=== PATIENT | male | born 1945 | race Caucasian/White ===

== ENCOUNTER 2021-06-07 14:33 | Inpatient (IN) | payer MEDICARE, OTHER ==
[~2021-06-07] VITALS: Ht 175 cm; Wt 101.0 kg
[2021-06-07] MEDS ORDERED: ALPRAZolam 0.25 MG (XANAX) TAB PO PRN (16:30)
[2021-06-07] MEDS ORDERED: CALCIUM CARBONATE 500 MG (TUMS) TAB.CHEW PO PRN (16:30)
[2021-06-07] MEDS ORDERED: MELATONIN 3 MG TABLET PO PRN (16:30)
[2021-06-07] MEDS ORDERED: polyethylene glycoL POWDER 17 GM (MIRALAX) PACK PO PRN (16:30)
[2021-06-07] MEDS ORDERED: diphenhydrAMINE 50 MG/ML INJ (BENADRYL) IVP PRN (16:30)
[2021-06-07] MEDS ORDERED: FUROSEMIDE 40 MG/4 ML INJ (LASIX) IVP ONE (16:30)
[2021-06-07] MEDS ORDERED: MILK OF MAGNESIA 400 MG/5 ML 30 ML UDC PO PRN (16:30)
[2021-06-07] MEDS ORDERED: ANTACID SUSP 30 ML UDC (MYLANTA) PO PRN (16:30)
[2021-06-07] MEDS ORDERED: PATIENT MAY USE OWN MEDS, ALL PO SCH (16:30)
[2021-06-07] MEDS ORDERED: ACETAMINOPHEN 325 MG TABLET PO PRN (16:30)
[2021-06-07] MEDS ORDERED: BISACODYL 10 MG SUPP (DULCOLAX) PR PRN (16:30)
[2021-06-07] MEDS ORDERED: diphenhydrAMINE 25 MG TAB (BENADRYL) PO PRN (16:30)
[2021-06-07] MEDS ORDERED: ONDANSETRON 4 MG/2 ML (SDV) Z0FRAN IV PRN (16:30)
[2021-06-07] MEDS ORDERED: LACTULOSE SYRUP 10GM/15ML (ENULOSE) 30ML UDC PO PRN (16:30)
[2021-06-07] MEDS ORDERED: morphine INJ 4 MG/ML 1 ML (VIAL/SYRINGE) IV PRN (16:30)
[2021-06-07] MEDS ORDERED: ONDANSETRON 4 MG (ZOFRAN) ORAL DISSOLVE TAB PO PRN (16:30)
[2021-06-07 16:53] LABS: BASOPHILS % (AUTO) 0 % (0-10); EOSINOPHILS % (AUTO) 0 % (0-10); HEMATOCRIT 22 % (40-54); LYMPHOCYTES # (AUTO) 1.3 10^3/uL (1.0-4.0); LYMPHOCYTES % (AUTO) 13 % (12-44); MEAN CORPUSCULAR HEMOGLOBIN 23 pg (25-34); MEAN CORPUSCULAR HGB CONC 28 g/dL (32-36); MEAN CORPUSCULAR VOLUME 81 fL (80-99); MEAN PLATELET VOLUME 8.7 fL (9.0-12.2); MONOCYTES % (AUTO) 10 % (0-12); NEUTROPHILS # (AUTO) 7.6 10^3/uL (1.8-7.8); NEUTROPHILS % (AUTO) 76 % (42-75); PLATELET COUNT 351 10^3/uL (130-400)
--- NOTE | 2021-06-07 16:56 | Consultation-Cardiology ---
HPI-Cardiology Cardiology Consultation: Date of Consultation 06/07/21 Time Seen by a Provider: 16:30 Date of Admission 06-07-21 Attending Physician Cristy Boudreaux DO Admitting Physician Consulting Physician Gabriel Mathias MD HPI: Chief Complaint: SOB Mr. Vazquez is a 76 yr old male admitted to ICU 6 as a [place] [facility] [place] reports increasing SOB, fatigue and LE swelling over the course of the last few days. He reports frequent cough for the last few weeks. He denies any c/o CP, palpitations, syncope or near syncope. 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 Tomas with [facility]. Review of Systems-Cardiology Review of Systems Constitutional: No chills, No fever; malaise Eyes: No vision change Ears/Nose/Throat: No epistaxis, No recent hearing loss Respiratory: As described under HPI Cardiovascular: As described under HPI Gastrointestinal: No constipation, No diarrhea, No nausea, No vomiting Genitourinary: No dysuria Musculoskeletal: joint pain (chronic) Skin: No rash on exposed areas, No ulcerations on exposed areas Psychiatric/Neurological: No anxiety, No depression, No seizure, No focal weakness, No syncope Hematologic: No bleeding abnormalities SVP-Ckovel-Mklhmh Hx Patient Social History Smoking Status: Former Smoker Have you traveled recently?: No Alcohol Use?: No Pt feels they are or have been: No Past Medical History PMH As described under Assessment. Family Medical History Family Medical History: He reports his father had CAD and from an [place] at age 59. Allergies and Home Medications Allergies Coded Allergies: No Known Drug Allergies (Unverified , 07/14/10) Physical Exam-Cardiology Physical Exam Vital Signs/I&O 06/07/21 06/07/21 06/07/21 16:06 16:06 16:31 Temp 36.3 Pulse 63 65 61 Resp 18 B/P (MAP) 127/68 127/68 Pulse Ox 90 91 O2 Delivery Nasal Cannula High Flow N/C O2 Flow Rate 8.00 Capillary Refill : Less Than 3 Seconds Constitutional: AAO x 3, well-developed, well-nourished HEENT: PERRL, hearing is well preserved, oral hygience is good Neck: No carotid bruit; carotid pulses are 2 + bilaterally Respiratory: No accessory muscle use, No respiratory distress; chest expansion is symmetric, chest is bilaterally symmetric, rhonchi (scattered) Cardiovascular: regular rate-rhythm; No JVD; S1 and S2 Gastrointestinal: No tender; round; No guarding; audible bowel sounds Extremities: other (mod bilat LE swelliing) Neurologic/Psychiatric: grossly intact (moves all extremities) Skin: No rash on exposed areas, No ulcerations on exposed areas A/P-Cardiology Assessment/Admission Diagnosis Anemia - undetermined etiology - management per medical services CAD - h/o CABG [address] Green at [facility] in [place], [place] PAF - OAC with Eliquis - currently being held PAD - reports h/o bilat fem-pop (which he reports both have failed) - managed by Dr. Green at [facility] in [place], [place] HTN HLD Discussion and Recomendations Anemia of undetermined etiology - requiring transfusion - suspect GIB - management per medical services Echocardiogram to eval structure and function Request records from [facility] in [place], [place] PAF - currently SR - OAC with Eliquis being held at this time - advise source of bleeding be determined and treated so that OAC may be resumed for stroke prophylaxis Monitor lab closely Replace electrolytes Further recs will be based on his hospital course We would like to thank medical services for this consult Clinical Quality Measures DVT/VTE Risk/Contraindication: Contraindications-Pharm: Other *list below* Other: JALEESA Huerta Jun 07, 2021 16:56
[2021-06-07 17:04] LABS: ALBUMIN 3.6 GM/DL (3.2-4.5); POTASSIUM 3.9 MMOL/L (3.6-5.0)
[2021-06-07 17:05] LABS: CALCIUM 8.8 MG/DL (8.5-10.1)
[2021-06-07 17:06] LABS: TOTAL PROTEIN 7.2 GM/DL (6.4-8.2)
[2021-06-07 17:08] LABS: BILIRUBIN,TOTAL 0.4 MG/DL (0.1-1.0)
[2021-06-07 17:10] LABS: CREATININE SERUM 1.16 MG/DL (0.60-1.30)
--- NOTE | 2021-06-07 17:20 | Consultation - Surgery ---
History of Present Illness History of Present Illness Patient Consulted On(urbano/time) 06/07/21 17:13 Time Seen by Provider: 16:52 History of Present Illness Surgery asked to consult regarding anemia. HPI: Pt is a 76 yr old male admitted to ICU 6 as a direct admit from [facility] [place]. He reports increasing SOB, fatigue and LE swelling over the course of the last few days. He reports frequent cough for the last few weeks. He denies any c/o CP, palpitations, syncope or near syncope. He reports his primary placing judge is Dr. Tomas with [facility]. He states his taste has been off for a "couple of months" and he hasn't really been eating much. He denied any hematochezia, hematemesis or melena; states not even bloody nose. He denied every being told he had anemia prior to this; had EGD/Colonoscopy just over 5 yrs ago. States they found some polyps, denied any inflammation or ulcers in stomach. States he was due for repeat after 5 yrs, "I'm a little late". He denies any abdominal pain or pain anywhere else really. Allergies and Home Medications Allergies Coded Allergies: No Known Drug Allergies (Unverified , 07/14/10) Patient Home Medication List Home Medication List Reviewed: Yes Past Xsopbfw-Vttgth-Guvyip Hx Patient Social History Smoking Status: Former Smoker Alcohol Use?: No Have you traveled recently?: No Surgeries History of Surgeries: Yes Surgeries: Appendectomy, CABG, Orthopedic Respiratory History of Respiratory Disorde: Yes Respiratory Disorders: COPD Cardiovascular History of Cardiac Disorders: Yes Cardiac Disorders: Atrial Fibrillation, Coronary Artery Disease Neurological History of Neurological Disord: No Genitourinary History of Genitourinary Disor: Yes Genitourinary Disorders: Renal Failure Gastrointestinal History of Gastrointestinal Di: No Musculoskeletal History of Musculoskeletal Dis: Yes Musculoskeletal Disorders: Arthritis Endocrine History of Endocrine Disorders: No HEENT History of HEENT Disorders: Yes Hearing Impairment: Hard of Hearing Cancer History of Cancer: No Psychosocial History of Psychiatric Problem: No Integumentary History of Skin or Integumenta: No Blood Transfusions History of Blood Disorders: No Family Medical History Significant Family History: CAD Over 55 Years Old (father had CT at 59 and ) Review of Systems-General Constitutional: malaise, weakness EENTM: No ear discharge, No mouth pain, No epistaxis, No throat swelling Respiratory: cough, dyspnea on exertion; No hemoptysis; short of breath Cardiovascular: No chest pain; Hx of Intervention, palpitations Gastrointestinal: No abdominal pain, No hematemesis, No jaundice; loss of appetite; No melena, No nausea, No vomiting Genitourinary: No dysuria, No hematuria; hesitancy, nocturia Musculoskeletal: joint pain, muscle stiffness, muscle cramps, muscle weakness Skin: No change in color, No change in hair/nails Psychiatric/Neurological: Denies Anxiety, Denies Depressed, Denies Seizure, Denies Tremors Physical Exam-General Problems Physical Exam Vital Signs Vital Signs - First Documented 06/07/21 06/07/21 16:06 16:31 Temp 36.3 Pulse 63 Resp 18 B/P (MAP) 127/68 Pulse Ox 90 O2 Delivery Nasal Cannula O2 Flow Rate 8.00 Capillary Refill : Less Than 3 Seconds General Appearance: no apparent distress, obese Eyes: Bilateral Eye PERRL (+arcus senilis), Bilateral Eye EOMI HEENT: pharynx normal; No scleral icterus (R), No scleral icterus (L) Neck: non-tender, supple Respiratory: lungs clear, normal breath sounds, no respiratory distress, no accessory muscle use Cardiovascular: regular rate, rhythm, no murmur, extra beats Gastrointestinal: non tender, soft, no organomegaly Back: no CVA tenderness, no vertebral tenderness Extremities: no calf tenderness, pedal edema Neurologic/Psychiatric: header setup operator II-XII nml as tested, alert, normal mood/affect, oriented x 3 Skin: normal color, warm/dry Lymphatic: no adenopathy (neck, axilla or groin) Data Review Labs Laboratory Tests 06/07/21 16:40: Sodium Level 134L, Potassium Level 3.9, Chloride Level 98, Carbon Dioxide Level 24, Anion Gap 12, Blood Urea Nitrogen 28H, Creatinine 1.16, Estimat Glomerular Filtration Rate 64, BUN/Creatinine Ratio 24, Glucose Level 102, Calcium Level 8.8, Corrected Calcium 9.1, Total Bilirubin 0.4, Aspartate Amino Transf (AST/SGOT) 31, Alanine Aminotransferase (ALT/SGPT) 31, Alkaline Phosphatase 96, Total Protein 7.2, Albumin 3.6 Assessment/Plan Assessment/Plan Assessment/Plan Anemia CAD HTN Abnormal Coagulopathy I am not sure if his anemia is from a GI bleed, pt has not seen any bleeding and hemoccult (done at [place]) was negative. Pt is also on Coumadin for his perceived stroke risk. INR is 4.6 and will need to come down before we do any procedure. He may benefit from EGD to just make sure there is nothing going on/source of bleeding. Will follow along. Clinical Quality Measures DVT/VTE Risk/Contraindication: Contraindications-Pharm: Other *list below* Other: ANTONINA Choi DO Jun 07, 2021 17:20
--- NOTE | 2021-06-07 17:44 | Consultation-Cardiology ---
HPI-Cardiology Cardiology Consultation: Date of Consultation 06/07/21 Time Seen by a Provider: 17:20 Date of Admission Attending Physician Cristy Boudreaux DO Admitting Physician Consulting Physician CB CONTRERAS MD, MA, FACP, FACC, [facility] [place], CCDS HPI: Chief Complaint: Shortness of breath Mr. Vazquez is a 76 yr old male admitted to ICU 6 as a direct admit from [facility] [place]. He reports increasing SOB, fatigue and LE swelling over the course of the last few days. He reports frequent cough for the last few weeks. He denies any c/o CP, palpitations, syncope or near syncope. 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 Tomas with [facility]. Review of Systems-Cardiology Review of Systems Constitutional: No chills, No fever; malaise Eyes: No vision change Ears/Nose/Throat: No epistaxis, No recent hearing loss Respiratory: As described under HPI Cardiovascular: As described under HPI Gastrointestinal: No constipation, No diarrhea, No nausea, No vomiting Genitourinary: No dysuria Musculoskeletal: joint pain (chronic) Skin: No rash on exposed areas, No ulcerations on exposed areas Psychiatric/Neurological: No anxiety, No depression, No seizure, No focal weakness, No syncope Hematologic: No bleeding abnormalities USW-Xjkyps-Pmpgwj Hx Patient Social History Smoking Status: Former Smoker Have you traveled recently?: No Alcohol Use?: No Pt feels they are or have been: No Past Medical History PMH As described under Assessment. Family Medical History Family Medical History: He reports his father had CAD and from an AL at age 59. Allergies and Home Medications Allergies Coded Allergies: No Known Drug Allergies (Unverified , 07/14/10) Patient Home Medication List Home Medication List Reviewed: Yes Physical Exam-Cardiology Physical Exam Vital Signs/I&O 06/07/21 06/07/21 06/07/21 06/07/21 16:06 16:06 16:31 16:50 Temp 36.3 Pulse 63 65 61 Resp 18 B/P (MAP) 127/68 127/68 Pulse Ox 90 91 O2 Delivery Nasal Cannula High Flow N/C High Flow N/C O2 Flow Rate 8.00 8.00 06/07/21 17:00 Pulse 61 B/P (MAP) 150/69 Pulse Ox 89 O2 Delivery High Flow N/C Capillary Refill : Less Than 3 Seconds Constitutional: AAO x 3, well-developed, well-nourished HEENT: PERRL, hearing is well preserved, oral hygience is good Neck: No carotid bruit; carotid pulses are 2 + bilaterally Respiratory: No accessory muscle use, No respiratory distress; chest expansion is symmetric, chest is bilaterally symmetric, rhonchi (scattered) Cardiovascular: regular rate-rhythm; No JVD; S1 and S2 Gastrointestinal: No tender; round; No guarding; audible bowel sounds Extremities: other (mod bilat LE swelliing) Neurologic/Psychiatric: grossly intact (moves all extremities) Skin: No rash on exposed areas, No ulcerations on exposed areas Lymphatic: no adenopathy (neck, axilla or groin) Data Review Labs Laboratory Tests 06/07/21 16:40: Sodium Level 134L, Potassium Level 3.9, Chloride Level 98, Carbon Dioxide Level 24, Anion Gap 12, Blood Urea Nitrogen 28H, Creatinine 1.16, Estimat Glomerular Filtration Rate 64, BUN/Creatinine Ratio 24, Glucose Level 102, Calcium Level 8.8, Corrected Calcium 9.1, Total Bilirubin 0.4, Aspartate Amino Transf (AST/SGOT) 31, Alanine Aminotransferase (ALT/SGPT) 31, Alkaline Phosphatase 96, Total Protein 7.2, Albumin 3.6 A/P-Cardiology Assessment/Admission Diagnosis Anemia - undetermined etiology, GI bleed suspected - management per Dr Boudreaux CAD - h/o CABG [address] Green at [facility] in [place], [place] PAF - OAC with Eliquis - currently being held PAD - reports h/o bilat fem-pop (which he reports both have failed) - managed by Dr. Green at [facility] in [place], [place] HTN HLD Abnormal ECG. ECG of 06/07/21: A Fib with a relatively slow vent response, RBBB, LAFB Discussion and Recomendations PAF - currently SR - OAC with Eliquis being held at this time - advise source of bleeding be determined and treated so that OAC may be resumed for stroke prophylaxis Echocardiogram to eval structure and function Request records from [facility] in [place], [place] Monitor lab closely Replace electrolytes Further recs will be based on his hospital course We would like to thank Medical services for this consult Clinical Quality Measures DVT/VTE Risk/Contraindication: Contraindications-Pharm: Other *list below* Other: CB Suarez MD FACP FAC CCDS Jun 07, 2021 17:44
[2021-06-07] MEDS: NS IV 1000 ML 1,000 ML IV SCH (17:52)
--- NOTE | 2021-06-07 17:53 | Tele-ICU Consult ---
History of Present Illness History of Present Illness Date Seen by Provider: Jun 07, 2021 Time Seen by Provider: 17:52 Date of Admission Allergies and Home Medications Allergies Coded Allergies: No Known Drug Allergies (Unverified , 07/14/10) Past Medical/Social/Family Hx Patient Social History Tobacco Use?: No Smoking Status: Former Smoker Smokeless Tobacco Frequency: Never a User Use of E-Cig and/or Vaping dev: No E-Cig and/or Vaping Freq: Never a User Substance use?: No Alcohol Use?: No Pt stated abuse/neglect: No Immunizations Up To Date Influenza Vaccine Up-to-Date: Yes; Up-to-Date First/Initial COVID19 Vaccinat: April 2020 Second COVID19 Vaccination Randy: May 2020 Tetanus Booster (TDap): Unknown Hepatitis A: No Hepatitis B: No TB Skin Test: None Current Status Advance Directives: Yes Advance Directive Location: Home Communicates: Verbally Primary Language: Maldivian Preferred Spoken Language: Maldivian Is interpretation needed?: No Sensory deficits: Vision impairment Implanted or Applied Medical D: None Review of Systems Constitutional: see HPI Focused Exam Height, Weight, BMI Height: '" Weight: lbs. oz. kg; 35.59 BMI Method: Exam Exam Patient acknowledged, consented, and participated in this virtual visit which was conducted using real time audio/video Vital Signs Date Time Temp Pulse Resp B/P (MAP) Pulse Ox O2 Delivery O2 Flow Rate FiO2 06/07/21 17:00 61 150/69 89 High Flow N/C 06/07/21 16:50 High Flow N/C 8.00 06/07/21 16:31 36.3 61 18 127/68 91 High Flow N/C 06/07/21 16:06 65 127/68 90 Nasal Cannula 8.00 06/07/21 16:06 63 Height & Weight Height: '" Weight: lbs. oz. kg; 35.59 BMI Method: General Appearance: No Apparent Distress Capillary Refill: Less Than 3 Seconds Gastrointestinal: non tender, soft, no organomegaly Results Lab Laboratory Tests 06/07/21 16:40 Assessment/Plan Assessment/Plan (Tele-ICU Physician , consultation) Available chart/ vitals / labs / Images reviewed H&P is from ER notes Patient's information available about PMH, Shx, Fhx allergy reviewed in EMR. ROS as per chart and RN report Now in ICU, hemodynamically stable Video assessment done using teleICU camera, rest of exam as per RN Discussed with RN. Consultants: Laquita benjamin Hospital course: 06/07- a direct admit from [facility] [place] with SOB , anemia A/P Anemia - undetermined etiology, hemodynamically stable -PPI IV q24 h -no signs of organ dysfunction due to anemia -Transfusion of 2 pRBC planned . 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 CHF with anemia/ cad - ECHO pending Lines : (Central Line Necessity Reviewed) Multani: OG: Nutrition: Analgesia: Anxiety/ delirium VTE Prophylaxis: scd Stress Ulcer Prophylaxis: ppi Plans in collaboration with bedside consultants and IM MDs. Discussed with RN to reach out if any questions or concerns A total of 33 minutes of critical care time was devoted to this patient today, required to treat and/or prevent further deterioration of critical care condition ( as above ) . CHAN SHCUMACHER MD Jun 07, 2021 17:53
[2021-06-07 17:58] LABS: HEMOGLOBIN 6.1 g/dL (13.3-17.7)
[2021-06-07 18:06] LABS: INR 3.9 (0.8-1.4); PROTHROMBIN TIME PATIENT 38.9 SEC (12.2-14.7)
--- NOTE | 2021-06-07 18:32 | History & Physical ---
History of Present Illness HPI/Chief Complaint Chief complaint: Dyspnea History of present illness: This is a 76-year-old white male clinic patient of Dr. Moncada and Dr. Tomas Cardiology who has a past medical history of heart disease previous bypass, hypothyroidism, atrial fibrillation, Coumadin for anticoagulation for stroke prophylaxis and presumed sleep apnea who presented to [facility] ICU for higher level of care cardiology and pulmonary critical care from [facility] ER due to presumed GI bleed with elevated INR. Hemoccult was negative. No bloody stools per patient. Patient was found to have severe hypoxemia on ABG requiring oxygen supplementation. He does not regularly wear oxygen at home. He does not wear a CPAP but reports that he has signs of sleep apnea. Patient has been progressively weaker and weaker for the last 3 weeks. He denied any chest pain. No fever. Covid test was negative. Chest x-ray revealed pulmonary congestion. No evidence of pneumonia. Patient was found to have very low hemoglobin of 5.8 requiring 2 units of blood transfusion. Dr. Childs has been consulted. Dr. Mathias has been consulted. Patient will BiPAP placed since it appears he needs that anyway and ABG was checked and he has hypercapnia with mild respiratory acidosis. Source: patient, family Exam Limitations: clinical condition (hypoxia) Date Seen 06/07/21 Time Seen by a Provider: 18:30 Attending Physician Cristy Boudreaux DO PCP Grzegorz Moncada DO Referring Physician Date of Admission Jun 07, 2021 at 16:26 Home Medications & Allergies Home Medications Reviewed patient Home Medication Reconciliation performed by pharmacy medication reconciliations health physics technician and/or nursing. Patients Allergies have been reviewed. Allergies Allergies Coded Allergies No Known Drug Allergies (Unverified07/14/10) Past Ucurolg-Fmesmr-Ifiqmf Hx Past Med/Social Hx: Reviewed Nursing Past Med/Soc Hx, Reviewed and Corrections made Patient Social History Marrital Status: Employed/Student: employed Alcohol Use: Denies Use Smoking Status: Former Smoker Past Medical History Surgeries: Appendectomy, CABG, Orthopedic Cardiac: Atrial Fibrillation, Coronary Artery Disease, High Cholesterol, Hypertension Genitourinary: Renal Failure Musculoskeletal: Arthritis Endocrine: Hypothyroidsim Hearing Impairment: Hard of Hearing History of Blood Disorders: No Family History CAD Over 55 Years Old (father had SC at 59 and ) Review of Systems Constitutional: see HPI, dizziness, malaise, weakness EENTM: no symptoms reported Respiratory: cough, dyspnea on exertion, orthopnea, short of breath, wheezing Cardiovascular: edema Gastrointestinal: no symptoms reported Genitourinary: no symptoms reported Musculoskeletal: back pain, joint pain Skin: no symptoms reported Psychiatric/Neurological: Weakness All Other Systems Reviewed Negative Unless Noted: Yes Physical Exam Physical Exam Vital Signs Vital Signs - First Documented 06/07/21 06/07/21 06/07/21 16:06 16:31 20:22 Temp 36.3 Pulse 63 Resp 18 B/P (MAP) 127/68 Pulse Ox 90 O2 Delivery Nasal Cannula O2 Flow Rate 8.00 FiO2 50 Capillary Refill : Less Than 3 Seconds Height, Weight, BMI Height: '" Weight: lbs. oz. kg; 35.59 BMI Method: General Appearance: Anxious, Chronically ill, Mild Distress, Obese Eyes: Bilateral Eye PERRL (+arcus senilis), Bilateral Eye EOMI HEENT: Pharynx Normal Neck: Full Range of Motion, Normal Inspection, Non Tender, Supple, Carotid Bruit Respiratory: Accessory Muscle Use, Crackles, Decreased Breath Sounds, Respiratory Distress, Wheezing Cardiovascular: Irregularly Irregular, Tachycardia Neurologic/Psychiatric: Alert, Oriented x3, No Motor/Sensory Deficits, Normal Mood/Affect Results Results/Procedures Labs Laboratory Tests 06/07/21 16:40 06/08/21 01:30 Patient resulted labs reviewed. Assessment/Plan Admission Diagnosis Assessment: Acute hypoxic hypercapnic respiratory failure requiring BiPAP Volume overload with pulmonary congestion on chest x-ray Severe anemia hemoglobin 5.8 at [facility] Coagulopathy from Coumadin 4.1 INR Atrial fibrillation CAD previous bypass Suspicion for RILEY Hypothyroidism Hypertension Hyperlipidemia Chronic kidney disease Plan: ICU Transfuse Cardiology consult eICU consult Dr. Childs consult Monitor hemoglobin Lasix Gentle IV fluid BiPAP Admission Status: Inpatient Order (span 2 midnights) Reason for Inpatient Admission: resp failure Diagnosis/Problems Diagnosis/Problems (1) Respiratory failure (2) Hypercapnia (3) Respiratory acidosis (4) RILEY (obstructive sleep apnea) (5) CAD (coronary artery disease) (6) Hx of CABG (7) Obesity (8) Hypertension (9) Hyperlipidemia (10) Hypothyroidism (11) Chronic kidney disease (12) Warfarin anticoagulation (13) Transfusion of blood during current hospitalisation (14) Anemia Clinical Quality Measures DVT/VTE Risk/Contraindication: Contraindications-Pharm: Other *list below* Other: CRISTY Freeman DO Jun 07, 2021 18:32
[2021-06-07] MEDS ORDERED: NS IV 500 ML 500 ML ONE (19:39)
--- NOTE | 2021-06-07 19:43 | Diagnostic Imaging Report ---
INDICATION: Shortness of breath. No comparison available. FINDINGS: Patient is status post sternotomy and bypass grafting. There is enlargement of the cardiac silhouette. There appear to be what are likely chronic changes of interstitial lung disease with centrilobular emphysema suspected. There is no evidence to suggest pulmonary edema or failure. There is irregular nodular density present within the left upper lobe. There are no findings of an acute osseous abnormality. IMPRESSION: 1. Previous bypass grafting with cardiomegaly and what are likely advanced features of underlying interstitial lung disease. There is also superimposed nodular density within the left upper lobe. This could reflect an area of infiltrate though the possibility of a lung mass is not excluded. When the patient is clinically able, a CT of the chest for further assessment is recommended. Dictated by: Dictated on workstation # [id number]
[2021-06-07 19:44] VITALS: BP 122/87
[2021-06-07 19:45] LABS: ABG BASE EXCESS 2.3 MMOL/L (-2.5-2.5); ABG OXYGEN SATURATION 89 % (94-100); ABG PCO2 50 MMHG (35-45); ABG PH 7.36 (7.37-7.43); ABG PO2 55 MMHG (79-93); ABG TCO2 28.9 MMOL/L (21.0-31.0); ALLENS TEST YES-POS; INSPIRED O2 9L; PATIENT TEMP 36.6; VENTILATOR NO
[2021-06-07] MEDS ORDERED: RT-ALBUTEROL/IPRATROPIUM 3 ML (DUONEB) VIAL INH PRN (20:00)
[2021-06-07 20:14] VITALS: BP 149/67
[2021-06-07] MEDS: NS IV 500 ML 500 ML IV SCH (20:28)
[2021-06-07 20:29] VITALS: BP 145/65
[2021-06-07] MEDS: DOCUSATE SODIUM 100 MG (COLACE) CAP PO SCH (21:36)
[2021-06-07] MEDS: SENNOSIDES 8.6 MG (SENOKOT) TAB PO SCH (21:37)
[2021-06-07] MEDS ORDERED: RT-ALBUTEROL/IPRATROPIUM 3 ML (DUONEB) VIAL ONE (21:45)
[2021-06-07] MEDS: RT-ALBUTEROL/IPRATROPIUM 3 ML (DUONEB) VIAL INH SCH (21:50)
[2021-06-07] MEDS ORDERED: FUROSEMIDE 40 MG/4 ML INJ (LASIX) ONE (22:57)
[2021-06-07 22:58] VITALS: BP 166/71
[2021-06-08 01:42] LABS: HEMOGLOBIN 6.8 g/dL (13.3-17.7)
[2021-06-08 01:55] VITALS: BP 133/61
[2021-06-08 02:10] VITALS: BP 140/58
[2021-06-08] MEDS: RT-ALBUTEROL/IPRATROPIUM 3 ML (DUONEB) VIAL INH SCH ×4 (03:12→22:02)
[2021-06-08 05:01] VITALS: BP 145/69
--- NOTE | 2021-06-08 06:04 | Progress Note - Surgery ---
GATO ZULETA 06/08/21 0604: Subjective Date Seen by a Provider: Jun 08, 2021 Time Seen by a Provider: 06:05 Subjective/Events-last exam Pt drowsy this morning, fell asleep twice during examination. Says he is feeling "eh," but is in no pain. Has not had a bowel movement since last Monday or Monday. Has not noticed bleeding otherwise, denies any blood when urinating. He last ate solid foods yesterday morning, and had broth for dinner last night. He is sipping water. Denies CP, palpitations, N/V, and abdominal pain. He is on BiPaP and does feel slightly SOB. Review of Systems General: Fatigue, Malaise HEENT: No Head Aches Pulmonary: Dyspnea; No Cough Cardiovascular: No: Chest Pain, Palpitations Gastrointestinal: No: Nausea, Vomiting, Abdominal Pain Genitourinary: No Dysuria, No Hematuria Musculoskeletal: No: other (denies pain anywhere) Neurological: No: Weakness, Seizures Focused Exam Respiratory: No Respiratory Distress, Wheezing, Other (on bipap) Cardiovascular: Normal Peripheral Pulses, Irregularly Irregular Peripheral Pulses: 2+ Radial Pulses (R), 2+ Radial Pulses (L) Skin: normal color, warm/dry Objective Exam Vital Signs Date Time Temp Pulse Resp B/P (MAP) Pulse Ox O2 Delivery O2 Flow Rate FiO2 06/08/21 05:01 36.8 66 13 145/69 97 NIV Bilevel 45 06/08/21 05:00 60 145/69 96 NIV Bilevel 45.00 06/08/21 04:30 60 21 149/65 93 NIV Bilevel 45.00 06/08/21 04:13 36.7 NIV Bilevel 45.00 06/08/21 04:00 94 NIV Bilevel 45 06/08/21 03:38 70 29 109/69 93 NIV Bilevel 45.00 06/08/21 03:13 61 16 94 50.00 06/08/21 02:10 36.6 61 17 140/58 96 NIV Bilevel 45 06/08/21 02:05 NIV Bilevel 45.00 06/08/21 02:00 61 13 132/59 93 NIV Bilevel 45.00 06/08/21 01:55 36.6 62 12 133/61 96 NIV Bilevel 45 06/08/21 01:00 55 20 152/66 92 NIV Bilevel 45.00 06/08/21 01:00 55 06/08/21 00:30 36.6 92 NIV Bilevel 45.00 06/08/21 00:00 75 23 124/73 93 NIV Bilevel 50.00 06/08/21 00:00 93 NIV Bilevel 45 06/07/21 23:00 55 14 164/75 95 NIV Bilevel 50.00 06/07/21 22:58 36.6 62 14 166/71 95 NIV Bilevel 50 06/07/21 22:00 71 11 137/113 92 NIV Bilevel 50.00 06/07/21 21:50 57 14 96 50.00 06/07/21 21:30 61 13 143/62 97 NIV Bilevel 50.00 06/07/21 20:58 26 06/07/21 20:29 36.8 57 12 145/65 95 NIV Bilevel 50 06/07/21 20:22 93 NIV Bilevel 50 06/07/21 20:21 94 NIV Bilevel 50.00 06/07/21 20:14 59 16 94 50.00 06/07/21 20:14 36.9 61 17 149/67 90 High Flow N/C 9.00 06/07/21 20:10 89 High Flow N/C 9.00 06/07/21 20:00 60 13 149/67 92 High Flow N/C 9.00 06/07/21 19:56 36.7 06/07/21 19:44 36.6 66 93 06/07/21 19:30 63 16 136/79 91 High Flow N/C 9.00 06/07/21 19:00 70 06/07/21 19:00 90 High Flow N/C 9.00 06/07/21 18:25 22 94 High Flow N/C 8.00 06/07/21 18:00 63 156/86 88 High Flow N/C 8.00 06/07/21 17:00 61 150/69 89 High Flow N/C 06/07/21 16:50 High Flow N/C 8.00 06/07/21 16:31 36.3 61 18 127/68 91 High Flow N/C 06/07/21 16:06 65 127/68 90 Nasal Cannula 8.00 06/07/21 16:06 63 I & O 06/08/21 06:59 Intake Total 100 ml Output Total 400 ml Balance -300 ml General Appearance: No Apparent Distress, Chronically ill, Obese Respiratory: No Respiratory Distress, Wheezing, Other (on bipap) Cardiovascular: Normal Peripheral Pulses, Irregularly Irregular Peripheral Pulses: 2+ Radial Pulses (R), 2+ Radial Pulses (L) Gastrointestinal: normal bowel sounds, soft, guarding; No rebound; tenderness (LUQ) Extremity: Normal Inspection, No Pedal Edema Neurologic/Psychiatric: Normal Mood/Affect, Other (Drowsy) Skin: Normal Color, Warm/Dry Results Lab Laboratory Tests 06/07/21 16:40: White Blood Count 10.0, Red Blood Count 2.69L, Hemoglobin 6.1*L, Hematocrit 22L, Mean Corpuscular Volume 81, Mean Corpuscular Hemoglobin 23L, Mean Corpuscular Hemoglobin Concent 28L, Red Cell Distribution Width 17.6H, Platelet Count 351, Mean Platelet Volume 8.7L, Immature Granulocyte % (Auto) 0, Neutrophils (%) (Auto) 76H, Lymphocytes (%) (Auto) 13, Monocytes (%) (Auto) 10, Eosinophils (%) (Auto) 0, Basophils (%) (Auto) 0, Neutrophils # (Auto) 7.6, Lymphocytes # (Auto) 1.3, Monocytes # (Auto) 1.0, Eosinophils # (Auto) 0.0, Basophils # (Auto) 0.0, Immature Granulocyte # (Auto) 0.0, Prothrombin Time 38.9H, INR Comment 3.9H, Sodium Level 134L, Potassium Level 3.9, Chloride Level 98, Carbon Dioxide Level 24, Anion Gap 12, Blood Urea Nitrogen 28H, Creatinine 1.16, Estimat Glomerular Filtration Rate 64, BUN/Creatinine Ratio 24, Glucose Level 102, Calcium Level 8.8, Corrected Calcium 9.1, Total Bilirubin 0.4, Aspartate Amino Transf (AST/SGOT) 31, Alanine Aminotransferase (ALT/SGPT) 31, Alkaline Phosphatase 96, Total Protein 7.2, Albumin 3.6 06/07/21 19:33: Blood Gas Puncture Site L RADIAL, Blood Gas Patient Temperature 36.6, Arterial Blood pH 7.36L, Arterial Blood Partial Pressure CO2 50H, Arterial Blood Partial Pressure O2 55L, Arterial Blood HCO3 27, Arterial Blood Total CO2 28.9, Arterial Blood Oxygen Saturation 89L, Arterial Blood Base Excess 2.3, Malro Test YES-POS, Blood Gas Ventilator Setting NO, Blood Gas Inspired Oxygen 9L 06/07/21 19:44: Influenza Type A (RT-PCR) Not Detected, Influenza Type B (RT-PCR) Not Detected, SARS-CoV-2 RNA (RT-PCR) Not Detected 06/08/21 01:30: Hemoglobin 6.8*L, Hematocrit 24L Assessment/Plan Assessment/Plan Assessment/Plan Anemia CAD HTN Abnormal Coagulopathy AFib CXR-- per radiology, showed interstitial lung disease and a nodular density in the left upper lobe; recommends CT when stable EKG-- showed AFIB, RBBB, LAFB PT- 33.8H (from 38.9H last night) INR- most recent 3.3 (from 3.9 last night) Hgb improved with 2 transfusions (6.8 to 7.5 after most recent) Continue to hold Eliquis May need EGD if Hgb remains low Cardiology has been consulted Monitor labs and vitals Clinical Quality Measures DVT/VTE Risk/Contraindication: Contraindications-Pharm: Other *list below* Other: MATTHEW Choi DO 06/08/21 1334: Subjective Time Seen by a Provider: 11:31 Subjective/Events-last exam Pt seen and examined, still no complaints of abdominal pain and no signs of GI bleed. Pt is having trouble breathing and was placed on BiPap. Review of Systems General: Fatigue, Malaise Pulmonary: Dyspnea; No Cough Cardiovascular: No: Chest Pain, Palpitations Gastrointestinal: No: Nausea, Vomiting, Abdominal Pain Genitourinary: No Hematuria Objective Exam General Appearance: Chronically ill, Obese Respiratory: No Respiratory Distress, Decreased Breath Sounds (at bases), Wheezing, Other (on bipap) Cardiovascular: Normal Peripheral Pulses, Irregularly Irregular Gastrointestinal: normal bowel sounds, non tender, soft, no organomegaly; No rebound Neurologic/Psychiatric: Other (Drowsy) Skin: Normal Color, Warm/Dry Assessment/Plan Assessment/Plan Assessment/Plan Anemia CAD HTN Abnormal Coagulopathy AFib CXR-- per radiology, showed interstitial lung disease and a nodular density in the left upper lobe; recommends CT when stable EKG-- showed AFIB, RBBB, LAFB PT- 33.8H (from 38.9H last night) INR- most recent 3.3 (from 3.9 last night) Hgb improved with 2 transfusions (6.8 to 7.5 after most recent) Continue to hold Coumadin; I don't think pt is on Eliquis May need EGD if Hgb remains low Cardiology has been consulted Monitor labs and vitals Supervisory-Addendum Brief Verification & Attestation Participated in pt care: history, MDM, physical Personally performed: exam, history, MDM, supervision of care Care discussed with: Medical Student Procedures: n/a Verification and Attestation of Medical Student E/M Service A medical student performed and documented this service. I then reviewed and verified all information documented by the medical student and made modifications to such information, when appropriate. I personally performed a physical exam, medical decision making and then discussed any differences between the notes and made revisions as necessary to create one note. Matthew Childs , 06/08/21 , 13:33 GATO ZULETA Jun 08, 2021 06:04 MATTHEW CHILDS DO Jun 08, 2021 13:34
[2021-06-08] MEDS: NS IV 1000 ML 1,000 ML IV SCH ×3 (06:06→15:22)
[2021-06-08 06:09] LABS: BASOPHILS % (AUTO) 0 % (0-10); EOSINOPHILS % (AUTO) 0 % (0-10); HEMATOCRIT 25 % (40-54); HEMOGLOBIN 7.5 g/dL (13.3-17.7); LYMPHOCYTES % (AUTO) 9 % (12-44); MEAN CORPUSCULAR HEMOGLOBIN 24 pg (25-34); MEAN CORPUSCULAR HGB CONC 30 g/dL (32-36); MEAN CORPUSCULAR VOLUME 80 fL (80-99); MEAN PLATELET VOLUME 9.3 fL (9.0-12.2); MONOCYTES # (AUTO) 1.1 10^3/uL (0.0-1.0); MONOCYTES % (AUTO) 10 % (0-12); NEUTROPHILS # (AUTO) 9.4 10^3/uL (1.8-7.8); NEUTROPHILS % (AUTO) 81 % (42-75); PLATELET COUNT 353 10^3/uL (130-400); WHITE BLOOD COUNT 11.7 10^3/uL (4.3-11.0)
[2021-06-08 06:23] LABS: ALBUMIN 3.5 GM/DL (3.2-4.5); POTASSIUM 3.9 MMOL/L (3.6-5.0)
[2021-06-08 06:24] LABS: CALCIUM 8.7 MG/DL (8.5-10.1)
[2021-06-08 06:25] LABS: TOTAL PROTEIN 7.1 GM/DL (6.4-8.2)
[2021-06-08 06:27] LABS: BILIRUBIN,TOTAL 0.7 MG/DL (0.1-1.0)
[2021-06-08 06:28] LABS: PHOSPHORUS 3.4 MG/DL (2.3-4.7)
[2021-06-08 06:29] LABS: CREATININE SERUM 1.08 MG/DL (0.60-1.30)
[2021-06-08 06:32] LABS: MAGNESIUM 2.1 MG/DL (1.6-2.4)
[2021-06-08 06:36] LABS: INR 3.3 (0.8-1.4); PROTHROMBIN TIME PATIENT 33.8 SEC (12.2-14.7)
--- NOTE | 2021-06-08 07:11 | Diagnostic Imaging Report ---
INDICATION: Dyspnea. FINDINGS: Coarse 5 lobed interstitial opacities in part chronic have significantly progressed in the interim. The change itself is presumed to reflect acute pneumonia superimposed. Cardiomegaly and midline sternal wires stable. No appreciable pneumothorax. There may be a small amount of pleural fluid greater right. IMPRESSION: Worsening bilateral infiltrates greater right superimposed upon chronic lung disease. Equivocal findings for small effusions, similar cardiomegaly. No pneumothorax. Dictated by: Dictated on workstation # [id number]
[2021-06-08 07:45] LABS: ABG BASE EXCESS 3.6 MMOL/L (-2.5-2.5); ABG OXYGEN SATURATION 91 % (94-100); ABG PCO2 46 MMHG (35-45); ABG PO2 58 MMHG (79-93); ABG TCO2 29.6 MMOL/L (21.0-31.0)
[2021-06-08 07:47] LABS: ALLENS TEST YES-POS; INSPIRED O2 45%
[2021-06-08 07:48] LABS: PATIENT TEMP 36.3; VENTILATOR NO
[2021-06-08] MEDS: PANTOPRAZOLE 40 MG (PROTONIX) VIAL IV SCH (08:41)
[2021-06-08] MEDS ORDERED: FUROSEMIDE 40 MG/4 ML INJ (LASIX) IVP ONE (08:45)
--- NOTE | 2021-06-08 08:45 | Progress Note - Cardiology ---
Cardiology SOAP Progress Note Subjective: Increasing SOB this morning No c/o CP or palpitations No c/o abd pain Objective: I&O/Vital Signs 06/09/21 06/10/21 06/10/21 06/10/21 23:08 00:48 01:00 03:18 Temp 37.1 37.4 37.2 Pulse 72 87 71 74 Resp 13 17 B/P (MAP) 133/62 140/63 Pulse Ox 91 96 92 O2 Delivery NIV Bilevel NIV Bilevel O2 Flow Rate 35.00 35.00 06/10/21 06/10/21 06/10/21 03:35 07:15 08:00 Temp 37.2 Pulse 65 73 75 Resp 18 16 B/P (MAP) 121/56 Pulse Ox 95 94 O2 Delivery High Flow N/C O2 Flow Rate 35.00 8.00 06/09/21 23:59 Intake Total 1440 ml Output Total 300 ml Balance 1140 ml Constitutional: AAO x 3, well-developed, well-nourished Respiratory: No accessory muscle use, No respiratory distress; chest expansion is symmetric, chest is bilaterally symmetric, rhonchi (scattered), other (lung sounds course) Cardiovascular: irregularly irregular; No JVD; S1 and S2 Gastrointestional: No tender; round; No guarding; audible bowel sounds Extremities: other (mod bilat LE swelliing) Neurologic/Psychiatric: grossly intact (moves all extremities) Skin: normal color, warm/dry Results/Procedures: Labs Laboratory Tests 06/10/21 05:07: Prothrombin Time 22.7H, INR Comment 1.9H 06/10/21 06:32: White Blood Count 14.4H, Red Blood Count 3.08L, Hemoglobin 7.2L, Hematocrit 25L, Mean Corpuscular Volume 81, Mean Corpuscular Hemoglobin 23L, Mean Corpuscular Hemoglobin Concent 29L, Red Cell Distribution Width 17.9H, Platelet Count 367, Mean Platelet Volume 9.2, Immature Granulocyte % (Auto) 1, Neutrophils (%) (Auto) 89H, Lymphocytes (%) (Auto) 5L, Monocytes (%) (Auto) 5, Eosinophils (%) (Auto) 0, Basophils (%) (Auto) 0, Neutrophils # (Auto) 12.7H, Lymphocytes # (Auto) 0.7L, Monocytes # (Auto) 0.8, Eosinophils # (Auto) 0.1, Basophils # (Auto) 0.0, Immature Granulocyte # (Auto) 0.1, Neutrophils % (Manual) 85, Lymphocytes % (Manual) 7, Monocytes % (Manual) 8, Eosinophils % (Manual) 0, Basophils % (Manual) 0, Band Neutrophils 0, Polychromasia MODERATE, Hypochromasia MODERATE, Anisocytosis MODERATE, Sodium Level 134L, Potassium Level 3.8, Chloride Level 95L, Carbon Dioxide Level 27, Anion Gap 12, Blood Urea Nitrogen 19H, Creatinine 0.82, Estimat Glomerular Filtration Rate 90, BUN/Creatinine Ratio 23, Glucose Level 120H, Calcium Level 8.6, Corrected Calcium 9.2, Total Bilirubin 0.5, Aspartate Amino Transf (AST/SGOT) 20, Alanine Aminotransferase (ALT/SGPT) 32, Alkaline Phosphatase 72, Total Protein 6.6, Albumin 3.2 Microbiology 06/08/21 Gram Stain - Final, Resulted 06/08/21 Sputum Culture - Preliminary, Resulted Culture In Progress 06/08/21 Blood Culture - Preliminary, Resulted No growth Procedures NAME: MILTON SANCHEZ [facility] REC#: [id number] PT STATUS: ADM IN : 1945 PHYSICIAN: JOSE JACQUES DO ADMIT DATE: 06/07/21/ICU Draft Date of Exam:06/08/21 CHEST 1 VIEW, AP/PA ONLY INDICATION: Dyspnea. FINDINGS: Coarse 5 lobed interstitial opacities in part chronic have significantly progressed in the interim. The change itself is presumed to reflect acute pneumonia superimposed. Cardiomegaly and midline sternal wires stable. No appreciable pneumothorax. There may be a small amount of pleural fluid greater right. IMPRESSION: Worsening bilateral infiltrates greater right superimposed upon chronic lung disease. Equivocal findings for small effusions, similar cardiomegaly. No pneumothorax. Dictated on workstation # [id number] Dict: 06/08/21 0644 Trans: 06/08/21 0709 JERROD [id number] Interpreted by: BRENT VENTURA Electronically signed by: A/P: Assessment: Anemia - undetermined etiology, GI bleed suspected - management per Dr Jacques Acute CHF - diuretics today and echocardiogram Pneumonia - management per medical services CAD - h/o CABG [address] Green at [facility] in [place], [place] PAF - OAC with warfarin - currently being held - Supra-therapeutic INR - being held PAD - reports h/o bilat fem-pop (which he reports both have failed) - managed by Dr. Green at [facility] in [place], [place] HTN HLD Abnormal ECG. ECG of 06/07/21: A Fib with a relatively slow vent response, RBBB, LAFB Plan: PAF - currently SR - OAC with warfarin being held at this time - advise source of bleeding be determined and treated so that OAC may be resumed for stroke prophylaxis Echocardiogram to eval structure and function Request records from [facility] in [place], [place] Monitor lab closely Replace electrolytes Acute CHF - treat with IV Lasix and replace electrolytes Pneumonia - management per medical services JALEESA GARZON Jun 08, 2021 08:45
[2021-06-08] MEDS: DOCUSATE SODIUM 100 MG (COLACE) CAP PO SCH ×3 (09:05→22:30)
[2021-06-08] MEDS: SENNOSIDES 8.6 MG (SENOKOT) TAB PO SCH ×3 (09:05→22:30)
[2021-06-08] MEDS ORDERED: CARV6.252 PO (09:20)
[2021-06-08] MEDS ORDERED: ISOS30TA82 PO (09:20)
[2021-06-08] MEDS ORDERED: AMIO200T65 PO (09:20)
[2021-06-08] MEDS ORDERED: LOSA100T57 PO (09:20)
[2021-06-08] MEDS ORDERED: OMEG-160 PO (09:20)
[2021-06-08] MEDS ORDERED: MULT-1136 PO (09:20)
[2021-06-08] MEDS ORDERED: ASPI-1238 PO (09:20)
[2021-06-08] MEDS ORDERED: OMEP20CA18 PO (09:20)
[2021-06-08] MEDS ORDERED: AMLO-251 PO (09:20)
[2021-06-08] MEDS ORDERED: WARF-48 PO ×2 (09:20)
[2021-06-08] MEDS ORDERED: DIGO125T3 PO (09:20)
[2021-06-08] MEDS ORDERED: HYDR25TA4 PO (09:20)
[2021-06-08] MEDS ORDERED: LEVO25TA5 PO (09:20)
[2021-06-08] MEDS ORDERED: ATOR20TA66 PO (09:20)
--- NOTE | 2021-06-08 09:57 | Tele-ICU Progress Note ---
Subjective Date Seen by a Provider: Jun 08, 2021 Time Seen by a Provider: 09:57 Sepsis Event Evaluation Height, Weight, BMI Height: '" Weight: lbs. oz. kg; 35.59 BMI Method: Focused Exam Lactate Level 06/08/21 06:00: Lactic Acid Level 1.11 Lactic Acid Level Laboratory Tests Test 06/08/21 06:00 Lactic Acid Level 1.11 MMOL/L (0.50-2.00) Exam Exam Patient acknowledged, consented, and participated in this virtual visit which was conducted using real time audio/video Vital Signs Date Time Temp Pulse Resp B/P (MAP) Pulse Ox O2 Delivery O2 Flow Rate FiO2 06/08/21 09:29 15 97 NIV Bilevel 45.00 06/08/21 09:00 64 137/79 92 NIV Bilevel 45.00 06/08/21 08:00 57 12 150/76 93 NIV Bilevel 45.00 06/08/21 07:43 37.0 06/08/21 07:42 59 13 94 45.00 06/08/21 07:00 58 15 158/71 92 NIV Bilevel 45.00 06/08/21 07:00 56 06/08/21 06:00 63 22 108/75 96 NIV Bilevel 45.00 06/08/21 05:01 36.8 66 13 145/69 97 NIV Bilevel 45 06/08/21 05:00 60 145/69 96 NIV Bilevel 45.00 06/08/21 04:30 60 21 149/65 93 NIV Bilevel 45.00 06/08/21 04:13 36.7 NIV Bilevel 45.00 06/08/21 04:00 94 NIV Bilevel 45 06/08/21 03:38 70 29 109/69 93 NIV Bilevel 45.00 06/08/21 03:13 61 16 94 50.00 06/08/21 02:10 36.6 61 17 140/58 96 NIV Bilevel 45 06/08/21 02:05 NIV Bilevel 45.00 06/08/21 02:00 61 13 132/59 93 NIV Bilevel 45.00 06/08/21 01:55 36.6 62 12 133/61 96 NIV Bilevel 45 06/08/21 01:00 55 20 152/66 92 NIV Bilevel 45.00 06/08/21 01:00 55 06/08/21 00:30 36.6 92 NIV Bilevel 45.00 06/08/21 00:00 75 23 124/73 93 NIV Bilevel 50.00 06/08/21 00:00 93 NIV Bilevel 45 06/07/21 23:00 55 14 164/75 95 NIV Bilevel 50.00 06/07/21 22:58 36.6 62 14 166/71 95 NIV Bilevel 50 06/07/21 22:00 71 11 137/113 92 NIV Bilevel 50.00 06/07/21 21:50 57 14 96 50.00 06/07/21 21:30 61 13 143/62 97 NIV Bilevel 50.00 06/07/21 20:58 26 06/07/21 20:29 36.8 57 12 145/65 95 NIV Bilevel 50 06/07/21 20:22 93 NIV Bilevel 50 06/07/21 20:21 94 NIV Bilevel 50.00 06/07/21 20:14 59 16 94 50.00 06/07/21 20:14 36.9 61 17 149/67 90 High Flow N/C 9.00 06/07/21 20:10 89 High Flow N/C 9.00 06/07/21 20:00 60 13 149/67 92 High Flow N/C 9.00 06/07/21 19:56 36.7 06/07/21 19:44 36.6 66 93 06/07/21 19:30 63 16 136/79 91 High Flow N/C 9.00 06/07/21 19:00 70 06/07/21 19:00 90 High Flow N/C 9.00 06/07/21 18:25 22 94 High Flow N/C 8.00 06/07/21 18:00 63 156/86 88 High Flow N/C 8.00 06/07/21 17:00 61 150/69 89 High Flow N/C 06/07/21 16:50 High Flow N/C 8.00 06/07/21 16:31 36.3 61 18 127/68 91 High Flow N/C 06/07/21 16:06 65 127/68 90 Nasal Cannula 8.00 06/07/21 16:06 63 I & O 06/08/21 07:00 Intake Total 150 ml Output Total 950 ml Balance -800 ml Height & Weight Height: '" Weight: lbs. oz. kg; 35.59 BMI Method: General Appearance: No Apparent Distress, Chronically ill, Obese Respiratory: No Respiratory Distress, Wheezing, Other (on bipap) Cardiovascular: Normal Peripheral Pulses, Irregularly Irregular Capillary Refill: Less Than 3 Seconds Peripheral Pulses: 2+ Radial Pulses (R), 2+ Radial Pulses (L) Gastrointestinal: normal bowel sounds, soft, guarding; No rebound; tenderness (LUQ) Extremity: Normal Inspection, No Pedal Edema Neurologic/Psychiatric: Normal Mood/Affect, Other (Drowsy) Skin: Normal Color, Warm/Dry Results Lab Laboratory Tests 06/07/21 16:40 06/08/21 01:30 06/08/21 06:00 Assessment/Plan Assessment/Plan (Tele-ICU Physician , Progress Note ) Available chart/ vitals / labs / Images reviewed Video assessment done using teleICU camera, rest of exam as per RN Discussed with RN , EXAM PER RN Events overnight : Afebrile FiO2 - bipsp I/O = + Drips: Pressors: , hemodynamically stable Consultants: Laquita benjamin Hospital course: 06/07- a direct admit from [facility] [place] with SOB , anemia , BIPAP , transfusion 2 uPRBC A/P Anemia - undetermined etiology, hemodynamically stable -PPI IV q24 h -no signs of organ dysfunction due to anemia -s/p ransfusion of 2 pRBC planned . follow levels -scope as per Sx (consulted) Acute resp failure . hypoxic - ? CHF with anemia and ttransfusion , ? PNA - BIPAP overningt , will re-assess -diuresis, ABX , ECHO Possible infection , ? PNA - PCT slightly elevated 06/08 -check UA - rocephin started 06/08 PAF, CAD - on with Eliquis, on hold now) - rate controlled CAD - no CR - as per cards Coagulopathy - was on with =Coumadin [employer] - INR is 4.6-> 3.3 -monitor now -transfusion FFP / IV vitamin K IN CASE of hemodynamic instability Lines : periph (Central Line Necessity Reviewed) Multani: void OG: Nutrition: Analgesia: Anxiety/ delirium VTE Prophylaxis: INR elevated Stress Ulcer Prophylaxis: ppi Plans in collaboration with bedside consultants and IM MDs. Discussed with RN to reach out if any questions or concerns A total of 33 minutes of critical care time was devoted to this patient today, required to treat and/or prevent further deterioration of critical care condition ( as above ) . CHAN SCHUMACHER MD Jun 08, 2021 09:57
[2021-06-08] MEDS: RT-BUDESONIDE NEBS 0.5 MG/2ML (PULMICORT) AMP INH SCH ×2 (10:43→22:02)
[2021-06-08] MEDS: CEFEPIME INJECTION 1,000 MG in NS (IVPB) 50 ML IV SCH ×2 (11:16→17:15)
[2021-06-08] MEDS: methylPREDNISolone 40 MG/ML (Solu-MEDROL) VIAL IV SCH ×2 (11:16→17:15)
[2021-06-08] MEDS: DOXYCYCLINE INJECTION 100 MG in NS (IVPB) 100 ML IV SCH ×2 (11:35→22:30)
[2021-06-08 11:41] LABS: BILIRUBIN,URINE NEGATIVE (NEGATIVE); CLARITY,URINE CLEAR; COLOR,URINE YELLOW; GLUCOSE, URINE (UA) NEGATIVE (NEGATIVE); KETONES,URINE NEGATIVE (NEGATIVE); LEUKOCYTE ESTERASE ,URINE NEGATIVE (NEGATIVE); NITRITE,URINE NEGATIVE (NEGATIVE); PROTEIN,URINE NEGATIVE (NEGATIVE)
[2021-06-08 12:04] LABS: BACTERIA,URINE NEGATIVE /HPF
--- NOTE | 2021-06-08 12:16 | Progress Note ---
RODRIGUEZ CIFUENTES 06/08/21 1216: Subjective Date Seen by a Provider: Jun 08, 2021 Time Seen by a Provider: 08:07 () Subjective/Events-last exam CC: Dyspnea HPI: This is a 76-year-old white male clinic patient of Dr. Moncada and Dr. Tomas Cardiology who has a past medical history of heart disease previous bypass, hypothyroidism, atrial fibrillation, Coumadin for anticoagulation for stroke prophylaxis and presumed sleep apnea who presented to [facility] ICU for higher level of care cardiology and pulmonary critical care from [facility] ER due to presumed GI bleed with elevated INR. Hemoccult was negative. No bloody stools per patient. Patient was found to have severe hypoxemia on ABG requiring oxygen supplementation. He does not regularly wear oxygen at home. He does not wear a CPAP but reports that he has signs of sleep apnea. Patient has been progressively weaker and weaker for the last 3 weeks. He denied any chest pain. No fever. Covid test was negative. Chest x-ray revealed pulmonary congestion. No evidence of pneumonia. Patient was found to have very low hemoglobin of 5.8 requiring 2 units of blood transfusion. Dr. Childs has been consulted. Dr. Mathias has been consulted. Patient will BiPAP placed since it appears he needs that anyway and ABG was checked and he has hypercapnia with mild respiratory acidosis. Subjective/Events-last exam Patient reports that he slept well but feeling worse in general. Has some tiredness and shortness of breath. CT from today (06/08) shows worsening bilateral infiltrates greater on the right and superimposed on chronic lung disease. Pt also has elevated procalcitonin at 1.56, measured today (06/08). ABG on 06/07 is 7.36/50/55 Review of Systems General: Fatigue, Malaise HEENT: No Head Aches, No Visual Changes Pulmonary: Dyspnea (Pt reports some shortness of breath), Cough Cardiovascular: No: Chest Pain, Palpitations Gastrointestinal: No: Nausea, Vomiting Genitourinary: No Dysuria Neurological: No: Weakness, Numbness Focused Exam Lactate Level 06/08/21 06:00: Lactic Acid Level 1.11 Objective Exam Last Set of Vital Signs Vital Signs Date Time Temp Pulse Resp B/P (MAP) Pulse Ox O2 Delivery O2 Flow Rate FiO2 06/08/21 12:00 71 31 97 NIV Bilevel 40.00 3/1/22 11:00 146/50 06/08/21 08:16 45 06/08/21 07:43 37.0 Capillary Refill : Less Than 3 Seconds I&O Intake and Output 06/07/21 23:59 Intake Total 50 ml Output Total 400 ml Balance -350 ml Intake Oral 50 ml Output Urine Total 400 ml Daily Weight Change No General: Alert, Oriented X3 HEENT: PERRLA, EOMI Lungs: Other (Some wheezing and low pitch vibrations upon expiration) Heart: Other (Heart sounds difficult to listen to.) Results Lab Laboratory Tests 06/07/21 16:40: White Blood Count 10.0, Red Blood Count 2.69L, Hemoglobin 6.1*L, Hematocrit 22L, Mean Corpuscular Volume 81, Mean Corpuscular Hemoglobin 23L, Mean Corpuscular Hemoglobin Concent 28L, Red Cell Distribution Width 17.6H, Platelet Count 351, Mean Platelet Volume 8.7L, Immature Granulocyte % (Auto) 0, Neutrophils (%) (Auto) 76H, Lymphocytes (%) (Auto) 13, Monocytes (%) (Auto) 10, Eosinophils (%) (Auto) 0, Basophils (%) (Auto) 0, Neutrophils # (Auto) 7.6, Lymphocytes # (Auto) 1.3, Monocytes # (Auto) 1.0, Eosinophils # (Auto) 0.0, Basophils # (Auto) 0.0, Immature Granulocyte # (Auto) 0.0, Prothrombin Time 38.9H, INR Comment 3.9H, Sodium Level 134L, Potassium Level 3.9, Chloride Level 98, Carbon Dioxide Level 24, Anion Gap 12, Blood Urea Nitrogen 28H, Creatinine 1.16, Estimat Glomerular Filtration Rate 64, BUN/Creatinine Ratio 24, Glucose Level 102, Calcium Level 8.8, Corrected Calcium 9.1, Total Bilirubin 0.4, Aspartate Amino Transf (AST/SGOT) 31, Alanine Aminotransferase (ALT/SGPT) 31, Alkaline Phosphatase 96, Total Protein 7.2, Albumin 3.6 06/07/21 19:33: Blood Gas Puncture Site L RADIAL, Blood Gas Patient Temperature 36.6, Arterial Blood pH 7.36L, Arterial Blood Partial Pressure CO2 50H, Arterial Blood Partial Pressure O2 55L, Arterial Blood HCO3 27, Arterial Blood Total CO2 28.9, Arterial Blood Oxygen Saturation 89L, Arterial Blood Base Excess 2.3, Amrlo Test YES-POS, Blood Gas Ventilator Setting NO, Blood Gas Inspired Oxygen 9L 06/07/21 19:44: Influenza Type A (RT-PCR) Not Detected, Influenza Type B (RT-PCR) Not Detected, SARS-CoV-2 RNA (RT-PCR) Not Detected 06/08/21 01:30: Hemoglobin 6.8*L, Hematocrit 24L 06/08/21 06:00: White Blood Count 11.7H, Red Blood Count 3.16L, Hemoglobin 7.5L, Hematocrit 25L, Mean Corpuscular Volume 80, Mean Corpuscular Hemoglobin 24L, Mean Corpuscular Hemoglobin Concent 30L, Red Cell Distribution Width 16.9H, Platelet Count 353, Mean Platelet Volume 9.3, Immature Granulocyte % (Auto) 1, Neutrophils (%) (Auto) 81H, Lymphocytes (%) (Auto) 9L, Monocytes (%) (Auto) 10, Eosinophils (%) (Auto) 0, Basophils (%) (Auto) 0, Neutrophils # (Auto) 9.4H, Lymphocytes # (Auto) 1.0, Monocytes # (Auto) 1.1H, Eosinophils # (Auto) 0.0, Basophils # (Auto) 0.0, Immature Granulocyte # (Auto) 0.1, Prothrombin Time 33.8H, INR Comment 3.3H, Sodium Level 134L, Potassium Level 3.9, Chloride Level 98, Carbon Dioxide Level 24, Anion Gap 12, Blood Urea Nitrogen 22H, Creatinine 1.08, Estimat Glomerular Filtration Rate 70, BUN/Creatinine Ratio 20, Glucose Level 116H, Lactic Acid Level 1.11, Calcium Level 8.7, Corrected Calcium 9.1, Phosphorus Level 3.4, Magnesium Level 2.1, Total Bilirubin 0.7, Aspartate Amino Transf (AST/SGOT) 32, Alanine Aminotransferase (ALT/SGPT) 36, Alkaline Phosphatase 96, Total Protein 7.1, Albumin 3.5, Procalcitonin 1.56H, Digoxin Level 0.69L 06/08/21 07:35: Blood Gas Puncture Site RT RAD, Blood Gas Patient Temperature 36.3, Arterial Blood pH 7.40, Arterial Blood Partial Pressure CO2 46H, Arterial Blood Partial Pressure O2 58L, Arterial Blood HCO3 28H, Arterial Blood Total CO2 29.6, Arterial Blood Oxygen Saturation 91L, Arterial Blood Base Excess 3.6H, Marlo Test YES-POS, Blood Gas Ventilator Setting NO, Blood Gas Inspired Oxygen 45% 06/08/21 11:32: Urine Color YELLOW, Urine Clarity CLEAR, Urine pH 6.0, Urine Specific [place] 1.015L, Urine Protein NEGATIVE, Urine Glucose (UA) NEGATIVE, Urine Ketones NEGATIVE, Urine Nitrite NEGATIVE, Urine Bilirubin NEGATIVE, Urine Urobilinogen 0.2, Urine Leukocyte Esterase NEGATIVE, Urine RBC (Auto) NEGATIVE, Urine RBC NONE, Urine WBC NONE, Urine Squamous Epithelial Cells NONE, Urine Crystals NONE, Urine Bacteria NEGATIVE, Urine Casts NONE, Urine Mucus NEGATIVE, Urine Culture Indicated NO Microbiology 06/07/21 MRSA Screen - Final, Complete MRSA not isolated Assessment/Plan Assessment/Plan Assess & Plan/Chief Complaint Assessment: Acute hypoxic hypercapnic respiratory failure requiring BiPAP ABG on 06/07 is 7.36/50/55 Pneumonia- CT (06/08) showing worsening bilateral infiltrates Volume overload with pulmonary congestion on chest x-ray Severe anemia hemoglobin 5.8 at [place] [facility] Coagulopathy from Coumadin 4.1 INR Atrial fibrillation CAD previous bypass Suspicion for RILEY Hypothyroidism Hypertension Hyperlipidemia Chronic kidney disease Plan: 06/08 ICU Transfuse Cardiology consult eICU consult Dr. Childs consult Monitor hemoglobin Lasix Gentle IV fluid BiPAP 06/09 ICU Start cefepime, doxycycline, budesonide, and solumedrol Cardiology consulted, will follow eICU consult Dr. Childs consulted, will follow Monitor hemoglobin- Hgb up to 7.5 on 06/08 from 6.1 on 06/07 2 blood transfusions given Lasix- 2 doses given Gentle IV fluid BiPAP- day #2 at settings 03/14 Clinical Quality Measures DVT/VTE Risk/Contraindication: Contraindications-Pharm: Other *list below* Other: CRISTY Freeman DO 06/09/21 0525: Subjective Subjective/Events-last exam Pt is doing very well BiPAP dependent but will change control specialist to high flow and Vapotherm today Suspect untreated sleep apnea Echocardiogram obtained likely PAP will be 50 Procalcitonin up so we will cover him with Cefepime and Doxycycline and start Budesonide BID and Solu Medrol 40mg IV Q 6 hours Monitor hemoglobin it is 7.5 today Checked meds and labs Very complicated case Review of Systems General: Fatigue, Malaise Pulmonary: Dyspnea (Pt reports some shortness of breath) Objective Exam General: Alert, Oriented X3, Mild Distress Lungs: Other (Some wheezing and low pitch vibrations upon expiration) Heart: Other (Heart sounds difficult to listen to.) Psych/Mental Status: Mental Status NL Assessment/Plan Assessment/Plan Assess & Plan/Chief Complaint Monitor hemoglobin Add antibiotics Appreciate cardiology Appreciate Dr. Childs Supervisory-Addendum Brief Verification & Attestation Participated in pt care: history, MDM, physical Personally performed: exam, history, MDM, supervision of care Care discussed with: Medical Student Procedures: n/a Results interpretation: Verified all documentation Verification and Attestation of Medical Student E/M Service A medical student performed and documented this service in my presence. I reviewed and verified all information documented by the medical student and made modifications to such information, when appropriate. I personally performed the physical exam and medical decision making. Cristy Jacques, Jun 09, 2021,05:24 RODRIGUEZ CIFUENTES Jun 08, 2021 12:16 CRISTY JACQUES DO Jun 09, 2021 05:25
[2021-06-08] MEDS: NS IV 500 ML 500 ML IV SCH (13:49)
[2021-06-08 14:14] LABS: MAGNESIUM 1.8 MG/DL (1.6-2.4); POTASSIUM 3.5 MMOL/L (3.6-5.0)
[2021-06-08] MEDS ORDERED: MAGNESIUM 1 GM/100 ML IVPB 100 ML IV ONE (14:30)
[2021-06-08] MEDS: POTASSIUM CL 10MEQ/50ML IVPB 50 ML IV SCH ×3 (14:54→17:02)
--- NOTE | 2021-06-08 16:09 | Progress Note - Cardiology ---
Cardiology SOAP Progress Note Subjective: Communication difficult due his use of BiPAP Was more short of breath overnight No cp or palp or syncope No n/v/d No focal weakness Gen weakness and malaise present Objective: I&O/Vital Signs 06/08/21 06/08/21 06/08/21 06/08/21 04:13 04:30 05:00 05:01 Temp 36.7 36.8 Pulse 60 60 66 Resp 21 13 B/P (MAP) 149/65 145/69 145/69 Pulse Ox 93 96 97 O2 Delivery NIV Bilevel NIV Bilevel NIV Bilevel NIV Bilevel O2 Flow Rate 45.00 45.00 45.00 FiO2 45 06/08/21 06/08/21 06/08/21 06/08/21 06:00 07:00 07:00 07:42 Pulse 63 56 58 59 Resp 22 15 13 B/P (MAP) 108/75 158/71 Pulse Ox 96 92 94 O2 Delivery NIV Bilevel NIV Bilevel O2 Flow Rate 45.00 45.00 45.00 06/08/21 06/08/21 06/08/21 06/08/21 07:43 08:00 08:16 09:00 Temp 37.0 Pulse 57 64 Resp 12 B/P (MAP) 150/76 137/79 Pulse Ox 93 92 92 O2 Delivery NIV Bilevel NIV Bilevel NIV Bilevel O2 Flow Rate 45.00 45.00 FiO2 45 06/08/21 06/08/21 06/08/21 06/08/21 09:29 10:00 10:01 10:43 Pulse 70 76 Resp 15 19 26 B/P (MAP) 146/70 Pulse Ox 97 91 95 96 O2 Delivery NIV Bilevel NIV Bilevel High Flow N/C O2 Flow Rate 45.00 45.00 5.00 45.00 06/08/21 06/08/21 06/08/21 06/08/21 11:00 12:00 12:00 13:00 Pulse 69 71 64 Resp 28 31 B/P (MAP) 146/50 Pulse Ox 95 92 97 O2 Delivery NIV Bilevel NIV Bilevel NIV Bilevel O2 Flow Rate 40.00 40.00 FiO2 45 06/08/21 06/08/21 06/08/21 06/08/21 13:00 14:00 14:32 15:00 Pulse 58 64 60 73 Resp 35 16 18 15 B/P (MAP) 171/83 154/82 154/89 Pulse Ox 95 93 94 98 O2 Delivery NIV Bilevel NIV Bilevel NIV Bilevel O2 Flow Rate 45.00 45.00 45.00 45.00 06/08/21 15:21 Temp 37.5 06/08/21 00:00 Intake Total 50 ml Output Total 400 ml Balance -350 ml Constitutional: AAO x 3, well-developed, well-nourished, other (on BiPAP) Respiratory: No accessory muscle use, No respiratory distress; chest expansion is symmetric, chest is bilaterally symmetric, rhonchi (scattered), other (lung sounds course) Cardiovascular: irregularly irregular; No JVD; S1 and S2 Gastrointestional: No tender; round; No guarding; audible bowel sounds Extremities: other (mod bilat LE swelliing) Neurologic/Psychiatric: other (moves all limbs equally) Skin: normal color, warm/dry Results/Procedures: Labs Laboratory Tests 06/07/21 16:40: White Blood Count 10.0, Red Blood Count 2.69L, Hemoglobin 6.1*L, Hematocrit 22L, Mean Corpuscular Volume 81, Mean Corpuscular Hemoglobin 23L, Mean Corpuscular Hemoglobin Concent 28L, Red Cell Distribution Width 17.6H, Platelet Count 351, Mean Platelet Volume 8.7L, Immature Granulocyte % (Auto) 0, Neutrophils (%) (Auto) 76H, Lymphocytes (%) (Auto) 13, Monocytes (%) (Auto) 10, Eosinophils (%) (Auto) 0, Basophils (%) (Auto) 0, Neutrophils # (Auto) 7.6, Lymphocytes # (Auto) 1.3, Monocytes # (Auto) 1.0, Eosinophils # (Auto) 0.0, Basophils # (Auto) 0.0, Immature Granulocyte # (Auto) 0.0, Prothrombin Time 38.9H, INR Comment 3.9H, Sodium Level 134L, Potassium Level 3.9, Chloride Level 98, Carbon Dioxide Level 24, Anion Gap 12, Blood Urea Nitrogen 28H, Creatinine 1.16, Estimat Glomerular Filtration Rate 64, BUN/Creatinine Ratio 24, Glucose Level 102, Calcium Level 8.8, Corrected Calcium 9.1, Total Bilirubin 0.4, Aspartate Amino Transf (AST/SGOT) 31, Alanine Aminotransferase (ALT/SGPT) 31, Alkaline Phosphatase 96, Total Protein 7.2, Albumin 3.6 06/07/21 19:33: Blood Gas Puncture Site L RADIAL, Blood Gas Patient Temperature 36.6, Arterial Blood pH 7.36L, Arterial Blood Partial Pressure CO2 50H, Arterial Blood Partial Pressure O2 55L, Arterial Blood HCO3 27, Arterial Blood Total CO2 28.9, Arterial Blood Oxygen Saturation 89L, Arterial Blood Base Excess 2.3, Marlo Test YES-POS, Blood Gas Ventilator Setting NO, Blood Gas Inspired Oxygen 9L 06/07/21 19:44: Influenza Type A (RT-PCR) Not Detected, Influenza Type B (RT-PCR) Not Detected, SARS-CoV-2 RNA (RT-PCR) Not Detected 06/08/21 01:30: Hemoglobin 6.8*L, Hematocrit 24L 06/08/21 06:00: White Blood Count 11.7H, Red Blood Count 3.16L, Hemoglobin 7.5L, Hematocrit 25L, Mean Corpuscular Volume 80, Mean Corpuscular Hemoglobin 24L, Mean Corpuscular Hemoglobin Concent 30L, Red Cell Distribution Width 16.9H, Platelet Count 353, Mean Platelet Volume 9.3, Immature Granulocyte % (Auto) 1, Neutrophils (%) (Auto) 81H, Lymphocytes (%) (Auto) 9L, Monocytes (%) (Auto) 10, Eosinophils (%) (Auto) 0, Basophils (%) (Auto) 0, Neutrophils # (Auto) 9.4H, Lymphocytes # (Auto) 1.0, Monocytes # (Auto) 1.1H, Eosinophils # (Auto) 0.0, Basophils # (Auto) 0.0, Immature Granulocyte # (Auto) 0.1, Prothrombin Time 33.8H, INR Comment 3.3H, Sodium Level 134L, Potassium Level 3.9, Chloride Level 98, Carbon Dioxide Level 24, Anion Gap 12, Blood Urea Nitrogen 22H, Creatinine 1.08, Estimat Glomerular Filtration Rate 70, BUN/Creatinine Ratio 20, Glucose Level 116H, Lactic Acid Level 1.11, Calcium Level 8.7, Corrected Calcium 9.1, Phosphorus Level 3.4, Magnesium Level 2.1, Total Bilirubin 0.7, Aspartate Amino Transf (AST/SGOT) 32, Alanine Aminotransferase (ALT/SGPT) 36, Alkaline Phosphatase 96, Total Protein 7.1, Albumin 3.5, Procalcitonin 1.56H, Digoxin Level 0.69L 06/08/21 07:35: Blood Gas Puncture Site RT RAD, Blood Gas Patient Temperature 36.3, Arterial Blood pH 7.40, Arterial Blood Partial Pressure CO2 46H, Arterial Blood Partial Pressure O2 58L, Arterial Blood HCO3 28H, Arterial Blood Total CO2 29.6, Arterial Blood Oxygen Saturation 91L, Arterial Blood Base Excess 3.6H, Marlo Test YES-POS, Blood Gas Ventilator Setting NO, Blood Gas Inspired Oxygen 45% 06/08/21 11:32: Urine Color YELLOW, Urine Clarity CLEAR, Urine pH 6.0, Urine Specific [place] 1.015L, Urine Protein NEGATIVE, Urine Glucose (UA) NEGATIVE, Urine Ketones NEGAT LET[place], Urine Nitrite NEGATIVE, Urine Bilirubin NEGATIVE, Urine Urobilinogen 0.2, Urine Leukocyte Esterase NEGATIVE, Urine RBC (Auto) NEGATIVE, Urine RBC NONE, Urine WBC NONE, Urine Squamous Epithelial Cells NONE, Urine Crystals NONE, Urine Bacteria NEGATIVE, Urine Casts NONE, Urine Mucus NEGATIVE, Urine Culture Indicated NO 06/08/21 13:53: Potassium Level 3.5L, Magnesium Level 1.8, Troponin I < 0.028 Microbiology 06/07/21 MRSA Screen - Final, Complete MRSA not isolated A/P: Assessment: Sinus node dysfunction: A Fib with a slow vent response alternating with sinus rhythm with trifascicular block Anemia - undetermined etiology, GI bleed suspected - management per Dr Boudreaux Acute diastolic CHF - Echo of 06/08/21: LVEF 55-65%, dilated atria, mild to mod conc LVH, PASP 40-45 mmHg - diuretics today and echocardiogram Pneumonia - management per medical services CAD - h/o CABG [address] Green at [facility] in [place], [place] PAF - OAC with warfarin - currently being held - Supra-therapeutic INR - being held PAD - reports h/o bilat fem-pop (which he reports both have failed) - managed by Dr. Green at [facility] in [place], [place] HTN HLD Abnormal ECG. ECG of 06/07/21: A Fib with a relatively slow vent response, RBBB, LAFB Plan: I spoke in detail with his family, including his daughter. I reviewed his list of home meds At home, he has been on amiodarone + digoxin + carvedilol. This may be the reason for his bradycardia. We are hold off on all of these. Continue to monitor closely OAC with warfarin being held at this time - advise source of bleeding be determined and treated so that OAC may be resumed for stroke prophylaxis Request records from [facility] in [place] Diuretics as needed and as tolerated Monitor lab closely Pneumonia - management per Medical services CB CONTRERAS MD FACP FAC CCDS Jun 08, 2021 16:09
--- NOTE | 2021-06-08 16:29 | Diagnostic Imaging Report ---
EXAMINATION: US Abdomen complete. TECHNIQUE: Multiple real-time grayscale images were obtained over the right upper quadrant in various projections. HISTORY: Abdominal aortic aneurysm. COMPARISON: None available. FINDINGS: The liver is normal in size. The liver is normal in echogenicity. No focal lesions are seen. The portal vein is patent with hepatopetal flow. Gallbladder is normal without wall thickening or pericholecystic fluid. Sonographic Noble sign is negative. Common duct measures 12 mm. There is no biliary ductal dilation. Pancreas is obscured. The right kidney is normal without hydronephrosis. The left kidney is normal without hydronephrosis. The aorta and inferior vena cava are obscured. The spleen is normal. No ascites is seen. IMPRESSION: 1. Mildly dilated common bile duct measuring 12 mm. Dictated by: Dictated on workstation # [id number]
[2021-06-08] MEDS: FUROSEMIDE 40 MG/4 ML INJ (LASIX) IVP SCH (17:15)
[2021-06-09] MEDS: CEFEPIME INJECTION 1,000 MG in NS (IVPB) 50 ML IV SCH ×5 (00:40→23:03)
[2021-06-09] MEDS: methylPREDNISolone 40 MG/ML (Solu-MEDROL) VIAL IV SCH ×5 (00:40→23:03)
[2021-06-09] MEDS: RT-ALBUTEROL/IPRATROPIUM 3 ML (DUONEB) VIAL INH SCH ×4 (03:02→21:20)
[2021-06-09 03:20] LABS: BASOPHILS % (AUTO) 0 % (0-10); EOSINOPHILS # (AUTO) 0.1 10^3/uL (0.0-0.3); EOSINOPHILS % (AUTO) 1 % (0-10); HEMATOCRIT 27 % (40-54); HEMOGLOBIN 7.8 g/dL (13.3-17.7); LYMPHOCYTES # (AUTO) 0.5 10^3/uL (1.0-4.0); LYMPHOCYTES % (AUTO) 6 % (12-44); MEAN CORPUSCULAR HEMOGLOBIN 24 pg (25-34); MEAN CORPUSCULAR HGB CONC 29 g/dL (32-36); MEAN CORPUSCULAR VOLUME 81 fL (80-99); MEAN PLATELET VOLUME 9.2 fL (9.0-12.2); MONOCYTES # (AUTO) 0.2 10^3/uL (0.0-1.0); MONOCYTES % (AUTO) 3 % (0-12); NEUTROPHILS % (AUTO) 90 % (42-75); PLATELET COUNT 377 10^3/uL (130-400); WHITE BLOOD COUNT 8.9 10^3/uL (4.3-11.0)
[2021-06-09 03:29] LABS: ALBUMIN 3.5 GM/DL (3.2-4.5)
[2021-06-09 03:31] LABS: CALCIUM 8.6 MG/DL (8.5-10.1)
[2021-06-09 03:32] LABS: TOTAL PROTEIN 7.3 GM/DL (6.4-8.2)
[2021-06-09 03:34] LABS: BILIRUBIN,TOTAL 0.5 MG/DL (0.1-1.0)
[2021-06-09 03:36] LABS: CREATININE SERUM 0.87 MG/DL (0.60-1.30)
[2021-06-09 03:38] LABS: MAGNESIUM 2.1 MG/DL (1.6-2.4)
[2021-06-09 04:02] LABS: HYPOCHROMASIA MODERATE; LYMPHOCYTES % (MANUAL) 6 %; MICROCYTOSIS MODERATE; MONOCYTES % (MANUAL) 1 %; NEUTROPHILS % (MANUAL) 93 %; NUCLEATED RED BLOOD CELLS 1; POLYCHROMASIA SLIGHT
[2021-06-09] MEDS: NS IV 500 ML 500 ML IV SCH (05:27)
--- NOTE | 2021-06-09 05:57 | Progress Note - Surgery ---
GATO ZULETA 06/09/21 0557: Subjective Date Seen by a Provider: Jun 09, 2021 Time Seen by a Provider: 05:58 Subjective/Events-last exam Pt was more awake this morning and responsive to questioning. He has not had a bowel movement since Monday and is not passing gas. He reports no abdominal pain. No blood has been noted. Still on Bipap, but no longer reports feeling SOB and is speaking more clearly than yesterday. Has not had more transfusions (2 total). Denies CP, SOB, cough, and palpitations at this time. Review of Systems General: Fatigue, Malaise HEENT: No Head Aches, No Visual Changes Pulmonary: No Dyspnea; Cough Cardiovascular: No: Chest Pain, Palpitations Gastrointestinal: No: Nausea, Vomiting, Abdominal Pain Genitourinary: No Dysuria; Frequency Musculoskeletal: No: neck pain, leg pain Neurological: No: Weakness, Change in speech Focused Exam Lactate Level 06/08/21 06:00: Lactic Acid Level 1.11 Respiratory: No Accessory Muscle Use, No Respiratory Distress, Wheezing, Other (on bipap) Cardiovascular: Normal Peripheral Pulses, Irregularly Irregular Peripheral Pulses: 2+ Radial Pulses (R), 2+ Radial Pulses (L) Skin: normal color, warm/dry, other (abdominal scar from appendectomy) Objective Exam Vital Signs Date Time Temp Pulse Resp B/P (MAP) Pulse Ox O2 Delivery O2 Flow Rate FiO2 06/09/21 04:07 76 15 96 NIV Bilevel 35.00 06/09/21 04:05 75 23 144/64 96 NIV Bilevel 45.00 06/09/21 04:00 37.2 06/09/21 04:00 95 NIV Bilevel 35 06/09/21 03:02 76 15 95 35.00 06/09/21 03:00 64 26 174/86 94 NIV Bilevel 45.00 06/09/21 02:00 66 166/67 97 NIV Bilevel 45.00 06/09/21 01:00 66 06/09/21 01:00 66 158/72 99 NIV Bilevel 45.00 06/09/21 00:49 93 NIV Bilevel 45 06/09/21 00:48 36.1 06/09/21 00:00 65 169/80 96 NIV Bilevel 45.00 06/08/21 23:00 60 37 162/74 91 NIV Bilevel 45.00 06/08/21 22:02 68 13 97 45.00 06/08/21 22:00 69 30 156/66 98 NIV Bilevel 45.00 06/08/21 21:00 64 11 144/60 97 NIV Bilevel 45.00 06/08/21 20:00 65 8 145/67 95 NIV Bilevel 45.00 06/08/21 20:00 37.0 06/08/21 19:45 93 NIV Bilevel 45 06/08/21 19:41 63 13 96 45.00 06/08/21 19:00 60 11 145/64 96 NIV Bilevel 45.00 06/08/21 19:00 60 06/08/21 18:00 65 10 133/60 96 NIV Bilevel 45.00 06/08/21 17:00 61 152/70 96 NIV Bilevel 45.00 06/08/21 16:15 94 NIV Bilevel 45 06/08/21 16:00 72 150/72 95 NIV Bilevel 45.00 06/08/21 15:21 37.5 06/08/21 15:00 73 15 154/89 98 NIV Bilevel 45.00 06/08/21 14:32 60 18 94 45.00 06/08/21 14:00 64 16 154/82 93 NIV Bilevel 45.00 06/08/21 13:00 58 35 171/83 95 NIV Bilevel 45.00 06/08/21 13:00 64 06/08/21 12:00 71 31 97 NIV Bilevel 40.00 06/08/21 12:00 92 NIV Bilevel 45 06/08/21 11:00 69 28 146/50 95 NIV Bilevel 40.00 06/08/21 10:43 76 26 96 45.00 06/08/21 10:01 95 High Flow N/C 5.00 06/08/21 10:00 70 19 146/70 91 NIV Bilevel 45.00 06/08/21 09:29 15 97 NIV Bilevel 45.00 06/08/21 09:00 64 137/79 92 NIV Bilevel 45.00 06/08/21 08:16 92 NIV Bilevel 45 06/08/21 08:00 57 12 150/76 93 NIV Bilevel 45.00 06/08/21 07:43 37.0 06/08/21 07:42 59 13 94 45.00 06/08/21 07:00 58 15 158/71 92 NIV Bilevel 45.00 06/08/21 07:00 56 06/08/21 06:00 63 22 108/75 96 NIV Bilevel 45.00 I & O 06/09/21 07:00 Intake Total 330 ml Output Total 4000 ml Balance -3670 ml Capillary Refill : Less Than 3 Seconds General Appearance: Chronically ill, Obese Respiratory: No Respiratory Distress, Wheezing, Other (on bipap) Cardiovascular: Normal Peripheral Pulses, Irregularly Irregular Peripheral Pulses: 2+ Dorsalis Pedis (R), 2+ Left Dors-Pedis (L), 2+ Radial Pulses (R), 2+ Radial Pulses (L) Gastrointestinal: non tender, soft, no organomegaly Extremity: Normal Inspection, No Pedal Edema Neurologic/Psychiatric: Alert, Normal Mood/Affect Skin: Normal Color, Warm/Dry, Other (abdominal scar from appendectomy) Results Lab Laboratory Tests 06/08/21 06:00: White Blood Count 11.7H, Red Blood Count 3.16L, Hemoglobin 7.5L, Hematocrit 25L, Mean Corpuscular Volume 80, Mean Corpuscular Hemoglobin 24L, Mean Corpuscular Hemoglobin Concent 30L, Red Cell Distribution Width 16.9H, Platelet Count 353, Mean Platelet Volume 9.3, Immature Granulocyte % (Auto) 1, Neutrophils (%) (Auto) 81H, Lymphocytes (%) (Auto) 9L, Monocytes (%) (Auto) 10, Eosinophils (%) (Auto) 0, Basophils (%) (Auto) 0, Neutrophils # (Auto) 9.4H, Lymphocytes # (Auto) 1.0, Monocytes # (Auto) 1.1H, Eosinophils # (Auto) 0.0, Basophils # (Auto) 0.0, Immature Granulocyte # (Auto) 0.1, Prothrombin Time 33.8H, INR Comment 3.3H, Sodium Level 134L, Potassium Level 3.9, Chloride Level 98, Carbon Dioxide Level 24, Anion Gap 12, Blood Urea Nitrogen 22H, Creatinine 1.08, Estimat Glomerular Filtration Rate 70, BUN/Creatinine Ratio 20, Glucose Level 116H, Lactic Acid Level 1.11, Calcium Level 8.7, Corrected Calcium 9.1, Phosphorus Level 3.4, Magnesium Level 2.1, Total Bilirubin 0.7, Aspartate Amino Transf (AST/SGOT) 32, Alanine Aminotransferase (ALT/SGPT) 36, Alkaline Phosphatase 96, Total Protein 7.1, Albumin 3.5, Procalcitonin 1.56H, Digoxin Level 0.69L 06/08/21 07:35: Blood Gas Puncture Site RT RAD, Blood Gas Patient Temperature 36.3, Arterial Blood pH 7.40, Arterial Blood Partial Pressure CO2 46H, Arterial Blood Partial Pressure O2 58L, Arterial Blood HCO3 28H, Arterial Blood Total CO2 29.6, Arterial Blood Oxygen Saturation 91L, Arterial Blood Base Excess 3.6H, Marlo Test YES-POS, Blood Gas Ventilator Setting NO, Blood Gas Inspired Oxygen 45% 06/08/21 11:32: Urine Color YELLOW, Urine Clarity CLEAR, Urine pH 6.0, Urine Specific [place] 1.015L, Urine Protein NEGATIVE, Urine Glucose (UA) NEGATIVE, Urine Ketones NEGATIVE, Urine Nitrite NEGATIVE, Urine Bilirubin NEGATIVE, Urine Urobilinogen 0.2, Urine Leukocyte Esterase NEGATIVE, Urine RBC (Auto) NEGATIVE, Urine RBC NONE, Urine WBC NONE, Urine Squamous Epithelial Cells NONE, Urine Crystals NONE, Urine Bacteria NEGATIVE, Urine Casts NONE, Urine Mucus NEGATIVE, Urine Culture Indicated NO 06/08/21 13:53: Potassium Level 3.5L, Magnesium Level 1.8, Troponin I < 0.028 06/09/21 03:05: White Blood Count 8.9, Red Blood Count 3.31L, Hemoglobin 7.8L, Hematocrit 27L, Mean Corpuscular Volume 81, Mean Corpuscular Hemoglobin 24L, Mean Corpuscular Hemoglobin Concent 29L, Red Cell Distribution Width 17.4H, Platelet Count 377, Mean Platelet Volume 9.2, Immature Granulocyte % (Auto) 0, Neutrophils (%) (Auto) 90H, Lymphocytes (%) (Auto) 6L, Monocytes (%) (Auto) 3, Eosinophils (%) (Auto) 1, Basophils (%) (Auto) 0, Neutrophils # (Auto) 8.0H, Lymphocytes # (Auto) 0.5L, Monocytes # (Auto) 0.2, Eosinophils # (Auto) 0.1, Basophils # (Auto) 0.0, Immature Granulocyte # (Auto) 0.0, Neutrophils % (Manual) 93, Lymphocytes % (Manual) 6, Monocytes % (Manual) 1, Nucleated Red Blood Cells 1, Polychromasia SLIGHT, Hypochromasia MODERATE, Microcytosis MODERATE, Sodium Level 136, Potassium Level 4.0, Chloride Level 97L, Carbon Dioxide Level 25, Anion Gap 14, Blood Urea Nitrogen 18, Creatinine 0.87, Estimat Glomerular Filtration Rate 88, BUN/Creatinine Ratio 21, Glucose Level 125H, Calcium Level 8.6, Corrected Calcium 9.0, Phosphorus Level 4.0, Magnesium Level 2.1, Total Bilirubin 0.5, Aspartate Amino Transf (AST/SGOT) 30, Alanine Aminotransferase (ALT/SGPT) 38, Alkaline Phosphatase 87, Total Protein 7.3, Albumin 3.5 Microbiology 06/07/21 MRSA Screen - Final, Complete MRSA not isolated Assessment/Plan Assessment/Plan Assessment/Plan Anemia CAD HTN Abnormal Coagulopathy AFib CXR-- per radiology, showed interstitial lung disease and a nodular density in the left upper lobe; recommends CT when stable Repeat CXR 06/08-- per radiology, showed worsening bilateral infiltrates/small effusions Abdominal US-- showed mildly dilated common bile duct (12mm); normal GB and biliary duct is not dilated EKG-- showed AFIB, RBBB, LAFB INR- 3.9 to 3.3 on 06/08/2021 Repeat CXR today Continue Doxy and Cefepime Hgb improved (7.5 to 7.8) Continue to hold Coumadin May need EGD if Hgb remains low Cardiology has held his amiodarone, digoxin, and carvedilol from home Monitor labs and vitals Clinical Quality Measures DVT/VTE Risk/Contraindication: Contraindications-Pharm: Other *list below* Other: MATTHEW Choi DO 06/09/21 1111: Subjective Time Seen by a Provider: 09:46 Subjective/Events-last exam Pt seen and examined, states he still has not had a BM. He is breathing better and was not on Bipap when I walked in. Review of Systems General: Fatigue, Malaise Pulmonary: No Dyspnea; Cough Cardiovascular: No: Chest Pain, Palpitations Gastrointestinal: No: Nausea, Vomiting, Abdominal Pain Objective Exam General Appearance: Chronically ill, Obese Respiratory: No Respiratory Distress, Accessory Muscle Use, Wheezing, Other (on bipap) Cardiovascular: No Murmur, Irregularly Irregular Gastrointestinal: non tender, soft, no organomegaly, other (scars on abd from surgery, CABG and Appy) Assessment/Plan Assessment/Plan Assessment/Plan Anemia CAD HTN Abnormal Coagulopathy AFib CXR-- per radiology, showed interstitial lung disease and a nodular density in the left upper lobe; recommends CT when stable Repeat CXR 06/08-- per radiology, showed worsening bilateral infiltrates/small effusions Abdominal US-- showed mildly dilated common bile duct (12mm); normal GB and biliary duct is not dilated EKG-- showed AFIB, RBBB, LAFB INR- 3.9 to 3.3 on 06/08/2021 Repeat CXR today Continue Doxy and Cefepime Hgb improved (7.5 to 7.8), Check INR tomorrow Continue to hold Coumadin, still no BM and therefore no hemoccult May need EGD if Hgb remains low or drops Cardiology has held his amiodarone, digoxin, and carvedilol from home Monitor labs and vitals Supervisory-Addendum Brief Verification & Attestation Participated in pt care: history, MDM, physical Personally performed: exam, history, MDM, supervision of care Care discussed with: Medical Student Procedures: n/a Verification and Attestation of Medical Student E/M Service A medical student performed and documented this service. I then reviewed and verified all information documented by the medical student and made modificatio ns to such information, when appropriate. I personally performed a physical exam, medical decision making and then discussed any differences between the notes and made revisions as necessary to create one note. Matthew Childs , 06/09/21 , 11:11 GATO ZULETA Jun 09, 2021 05:57 MATTHEW CHILDS DO Jun 09, 2021 11:11
[2021-06-09] MEDS: FUROSEMIDE 40 MG/4 ML INJ (LASIX) IVP SCH ×2 (06:17→17:37)
[2021-06-09] MEDS ORDERED: CYANOCOBALAMIN INJ 1000 MCG/ML IM ONE (07:00)
--- NOTE | 2021-06-09 07:05 | Diagnostic Imaging Report ---
INDICATION: Pneumonia. Comparison made with prior examination of 06/08/2021. FINDINGS: There is cardiomegaly. There has been some slight improvement in the bilateral perihilar infiltrates. No pleural effusion or pneumothorax. Previous median sternotomy and coronary bypass bypass graft. Some underlying central pulmonary venous congestion cannot be excluded. IMPRESSION: Slight interval improvement in the bilateral perihilar infiltrates. Cardiomegaly and some central pulmonary venous congestion. Dictated by: Dictated on workstation # [id number]
[2021-06-09] MEDS: RT-BUDESONIDE NEBS 0.5 MG/2ML (PULMICORT) AMP INH SCH ×2 (07:46→21:20)
[2021-06-09 08:05] LABS: ABG BASE EXCESS 7.8 MMOL/L (-2.5-2.5); ABG OXYGEN SATURATION 95 % (94-100); ABG PCO2 45 MMHG (35-45); ABG PH 7.47 (7.37-7.43); ABG PO2 70 MMHG (79-93); ABG TCO2 33.1 MMOL/L (21.0-31.0)
[2021-06-09 08:08] LABS: ALLENS TEST YES-POS; INSPIRED O2 35%; PATIENT TEMP 37.1; VENTILATOR NO
[2021-06-09] MEDS: DOXYCYCLINE INJECTION 100 MG in NS (IVPB) 100 ML IV SCH ×2 (08:40→20:40)
[2021-06-09] MEDS: SENNOSIDES 8.6 MG (SENOKOT) TAB PO SCH ×2 (08:40→20:40)
[2021-06-09] MEDS: DOCUSATE SODIUM 100 MG (COLACE) CAP PO SCH ×2 (08:40→20:40)
[2021-06-09] MEDS: CYANOCOBALAMIN 1,000 MCG (VITAMIN B-12) TABLET PO SCH (08:40)
[2021-06-09] MEDS: IRON SUCROSE 200 MG/10 ML (VENOFER) VIAL IV SCH (08:40)
[2021-06-09] MEDS: PANTOPRAZOLE 40 MG (PROTONIX) VIAL IV SCH (08:40)
[2021-06-09] MEDS ORDERED: cefTRIAXone 1 GM PRE-MIX 50 ML IV SCH (09:00)
[2021-06-09 09:44] LABS: INR 2.3 (0.8-1.4); PROTHROMBIN TIME PATIENT 25.9 SEC (12.2-14.7)
[2021-06-09] MEDS ORDERED: guaiFENesin (MUCINEX) 600 MG TAB PO NR (10:00)
[2021-06-09] MEDS: LACTULOSE SYRUP 10GM/15ML (ENULOSE) 30ML UDC PO SCH ×2 (10:21→20:40)
[2021-06-09] MEDS: polyethylene glycoL POWDER 17 GM (MIRALAX) PACK PO SCH ×2 (10:21→20:40)
--- NOTE | 2021-06-09 10:49 | Tele-ICU Progress Note ---
Subjective Date Seen by a Provider: Jun 09, 2021 Time Seen by a Provider: 10:49 Sepsis Event Evaluation Height, Weight, BMI Height: '" Weight: lbs. oz. kg; 35.59 BMI Method: Focused Exam Lactate Level 06/08/21 06:00: Lactic Acid Level 1.11 Exam Exam Patient acknowledged, consented, and participated in this virtual visit which wa s conducted using real time audio/video Vital Signs Date Time Temp Pulse Resp B/P (MAP) Pulse Ox O2 Delivery O2 Flow Rate FiO2 06/09/21 10:00 87 18 136/86 95 NIV Bilevel 35.00 06/09/21 09:00 81 12 131/96 97 NIV Bilevel 35.00 06/09/21 08:00 94 High Flow N/C 8.00 06/09/21 08:00 85 26 142/47 94 NIV Bilevel 35.00 06/09/21 07:55 78 13 96 35.00 06/09/21 07:46 37.4 06/09/21 07:00 77 13 162/69 93 NIV Bilevel 35.00 06/09/21 07:00 76 06/09/21 06:00 68 10 135/70 93 NIV Bilevel 35.00 06/09/21 05:00 72 11 148/70 97 NIV Bilevel 35.00 06/09/21 04:07 76 15 96 NIV Bilevel 35.00 06/09/21 04:05 75 23 144/64 96 NIV Bilevel 45.00 06/09/21 04:00 37.2 06/09/21 04:00 95 NIV Bilevel 35 06/09/21 03:02 76 15 95 35.00 06/09/21 03:00 64 26 174/86 94 NIV Bilevel 45.00 06/09/21 02:00 66 166/67 97 NIV Bilevel 45.00 06/09/21 01:00 66 06/09/21 01:00 66 158/72 99 NIV Bilevel 45.00 06/09/21 00:49 93 NIV Bilevel 45 06/09/21 00:48 36.1 06/09/21 00:00 65 169/80 96 NIV Bilevel 45.00 06/08/21 23:00 60 37 162/74 91 NIV Bilevel 45.00 06/08/21 22:02 68 13 97 45.00 06/08/21 22:00 69 30 156/66 98 NIV Bilevel 45.00 06/08/21 21:00 64 11 144/60 97 NIV Bilevel 45.00 06/08/21 20:00 65 8 145/67 95 NIV Bilevel 45.00 06/08/21 20:00 37.0 06/08/21 19:45 93 NIV Bilevel 45 06/08/21 19:41 63 13 96 45.00 06/08/21 19:00 60 11 145/64 96 NIV Bilevel 45.00 06/08/21 19:00 60 06/08/21 18:00 65 10 133/60 96 NIV Bilevel 45.00 06/08/21 17:00 61 152/70 96 NIV Bilevel 45.00 06/08/21 16:15 94 NIV Bilevel 45 06/08/21 16:00 72 150/72 95 NIV Bilevel 45.00 06/08/21 15:21 37.5 06/08/21 15:00 73 15 154/89 98 NIV Bilevel 45.00 06/08/21 14:32 60 18 94 45.00 06/08/21 14:00 64 16 154/82 93 NIV Bilevel 45.00 06/08/21 13:00 58 35 171/83 95 NIV Bilevel 45.00 06/08/21 13:00 64 06/08/21 12:00 71 31 97 NIV Bilevel 40.00 06/08/21 12:00 92 NIV Bilevel 45 06/08/21 11:00 69 28 146/50 95 NIV Bilevel 40.00 I & O 06/09/21 07:00 Intake Total 330 ml Output Total 4300 ml Balance -3970 ml Height & Weight Height: '" Weight: lbs. oz. kg; 35.59 BMI Method: General Appearance: Chronically ill, Obese Respiratory: No Respiratory Distress, Wheezing, Other (on bipap) Cardiovascular: Normal Peripheral Pulses, Irregularly Irregular Capillary Refill: Less Than 3 Seconds Peripheral Pulses: 2+ Dorsalis Pedis (R), 2+ Left Dors-Pedis (L), 2+ Radial Pulses (R), 2+ Radial Pulses (L) Gastrointestinal: non tender, soft, no organomegaly Extremity: Normal Inspection, No Pedal Edema Neurologic/Psychiatric: Alert, Normal Mood/Affect Skin: Normal Color, Warm/Dry, Other (abdominal scar from appendectomy) Results Lab Laboratory Tests 06/07/21 16:40 06/08/21 01:30 06/08/21 06:00 06/08/21 13:53 06/09/21 03:05 Assessment/Plan Assessment/Plan (Tele-ICU Physician , Progress Note ) Available chart/ vitals / labs / Images reviewed Video assessment done using teleICU camera, rest of exam as per RN Discussed with RN , EXAM PER RN Events overnight : bipap Afebrile FiO2 - bipsp I/O = neg 4L Drips: Pressors: , hemodynamically stable Consultants: sourav , Sclaudia Hospital course: [place]07- [place] [facility] [place] [facility] [place] , [place] , BIPAP , transfusion 2 uPRBC 06/08 - BIPAP - ? CHF 06/09 - NC after DIURESIS 4L A/P Anemia - undetermined etiology, hemodynamically stable -PPI IV q24 h -no signs of organ dysfunction due to anemia -s/p ransfusion of 2 pRBC 06/07 -scope as per Sx (consulted) Acute resp failure . hypoxic - ? CHF with anemia and ttransfusion , ? PNA - BIPAP overningt , , on 8L nc now -diuresis to cont - monitor Possible infection , ? PNA - PCT slightly elevated 06/08 - UA neg - rocephin started 06/08 PAF, CAD - ( [employer] on coumadin , on hold now) - follow INR - as per sx and cards - rate controlled CAD - no CP - as per cards -ECHO 06/08/21: LVEF 55-65%, dilated atria, mild to mod conc LVH, PASP 40-45 mmHg Coagulopathy - was on with =Coumadin [employer] - INR is 4.6-> 3.3 -monitor now Lines : periph (Central Line Necessity Reviewed) Multani: void OG: Nutrition: Analgesia: Anxiety/ delirium VTE Prophylaxis: INR elevated Stress Ulcer Prophylaxis: ppi Plans in collaboration with bedside consultants and IM MDs. Discussed with RN to reach out if any questions or concerns A total of 33 minutes of critical care time was devoted to this patient today, required to treat and/or prevent further deterioration of critical care condition ( as above ) . CHAN SCHUMACHER MD Jun 09, 2021 10:49
--- NOTE | 2021-06-09 10:51 | Progress Note ---
RODRIGUEZ CIFEUNTES 06/09/21 1051: Subjective Date Seen by a Provider: Jun 09, 2021 Time Seen by a Provider: 08:04 Subjective/Events-last exam CC: Dyspnea HPI: This is a 76-year-old white male clinic patient of Dr. Moncada and Dr. Tomas Cardiology who has a past medical history of heart disease previous bypass, hypothyroidism, atrial fibrillation, Coumadin for anticoagulation for stroke prophylaxis and presumed sleep apnea who presented to [facility] ICU for higher level of care cardiology and pulmonary critical care from [facility] ER due to presumed GI bleed with elevated INR. Hemoccult was negative. No bloody stools per patient. Patient was found to have severe hypoxemia on ABG requiring oxygen supplementation. He does not regularly wear oxygen at home. He does not wear a CPAP but reports that he has signs of sleep apnea. Patient has been progressively weaker and weaker for the last 3 weeks. He denied any chest pain. No fever. Covid test was negative. Chest x-ray revealed pulmonary congestion. No evidence of pneumonia. Patient was found to have very low hemoglobin of 5.8 requiring 2 units of blood transfusion. Dr. Childs has been consulted. Dr. Mathias has been consulted. Patient will BiPAP placed since it appears he needs that anyway and ABG was checked and he has hypercapnia with mild respiratory acidosis. Subjective/Events-last exam Patient reports that he slept well and is feeling better than yesterday. No tiredness or shortness of breath. Is using acapella. Has not eaten. Has not had a bowel movement since Monday. Patient also appears much improved since yesterday, able to sit up from bed easier when I needed to listen to lungs posteriorly. Review of Systems General: No Chills, No Night Sweats HEENT: No Head Aches, No Visual Changes Pulmonary: No Dyspnea, No Cough Cardiovascular: No: Chest Pain, Palpitations Gastrointestinal: No: Nausea, Vomiting, Abdominal Pain Genitourinary: No Dysuria, No Frequency Neurological: No: Weakness, Numbness Focused Exam Lactate Level 06/08/21 06:00: Lactic Acid Level 1.11 Objective Exam Last Set of Vital Signs Vital Signs Date Time Temp Pulse Resp B/P (MAP) Pulse Ox O2 Delivery O2 Flow Rate FiO2 06/09/21 10:00 87 18 136/86 95 NIV Bilevel 35.00 06/09/21 07:46 37.4 06/09/21 04:00 35 Capillary Refill : Less Than 3 Seconds I&O Intake and Output 06/09/21 00:00 Intake Total 430 ml Output Total 4300 ml Balance -3870 ml Intake Oral 130 ml IV Total 300 ml Output Urine Total 4300 ml General: Alert, Oriented X3 Lungs: Other (Still some low pitched vibrations on expiration. Patient is taking deeper breaths compared to yesterday.) Heart: Other (Irregularly Irregular) Psych/Mental Status: Mental Status NL Results Lab Laboratory Tests 06/08/21 11:32: Urine Color YELLOW, Urine Clarity CLEAR, Urine pH 6.0, Urine Specific [place] 1.015L, Urine Protein NEGATIVE, Urine Glucose (UA) NEGATIVE, Urine Ketones NEGATIVE, Urine Nitrite NEGATIVE, Urine Bilirubin NEGATIVE, Urine Urobilinogen 0.2, Urine Leukocyte Esterase NEGATIVE, Urine RBC (Auto) NEGATIVE, Urine RBC NONE, Urine WBC NONE, Urine Squamous Epithelial Cells NONE, Urine Crystals NONE, Urine Bacteria NEGATIVE, Urine Casts NONE, Urine Mucus NEGATIVE, Urine Culture Indicated NO 06/08/21 13:53: Potassium Level 3.5L, Magnesium Level 1.8, Troponin I < 0.028 06/09/21 03:05: Potassium Level 4.0, Magnesium Level 2.1, White Blood Count 8.9, Red Blood Count 3.31L, Hemoglobin 7.8L, Hematocrit 27L, Mean Corpuscular Volume 81, Mean Corpuscular Hemoglobin 24L, Mean Corpuscular Hemoglobin Concent 29L, Red Cell Distribution Width 17.4H, Platelet Count 377, Mean Platelet Volume 9.2, Immature Granulocyte % (Auto) 0, Neutrophils (%) (Auto) 90H, Lymphocytes (%) (Auto) 6L, Monocytes (%) (Auto) 3, Eosinophils (%) (Auto) 1, Basophils (%) (Auto) 0, Neutrophils # (Auto) 8.0H, Lymphocytes # (Auto) 0.5L, Monocytes # (Auto) 0.2, Eosinophils # (Auto) 0.1, Basophils # (Auto) 0.0, Immature Granulocyte # (Auto) 0.0, Neutrophils % (Manual) 93, Lymphocytes % (Manual) 6, Monocytes % (Manual) 1, Nucleated Red Blood Cells 1, Polychromasia SLIGHT, Hypochromasia MODERATE, Microcytosis MODERATE, Sodium Level 136, Chloride Level 97L, Carbon Dioxide Level 25, Anion Gap 14, Blood Urea Nitrogen 18, Creatinine 0.87, Estimat Glomerular Filtration Rate 88, BUN/Creatinine Ratio 21, Glucose Level 125H, Calcium Level 8.6, Corrected Calcium 9.0, Phosphorus Level 4.0, Total Bilirubin 0.5, Aspartate Amino Transf (AST/SGOT) 30, Alanine Aminotransferase (ALT/SGPT) 38, Alkaline Phosphatase 87, Total Protein 7.3, Albumin 3.5 06/09/21 05:05: Prothrombin Time 25.9H, INR Comment 2.3H 06/09/21 08:00: Blood Gas Puncture Site LT RAD, Blood Gas Patient Temperature 37.1, Arterial Blood pH 7.47H, Arterial Blood Partial Pressure CO2 45, Arterial Blood Partial Pressure O2 70L, Arterial Blood HCO3 32H, Arterial Blood Total CO2 33.1H, Arterial Blood Oxygen Saturation 95, Arterial Blood Base Excess 7.8H, Marlo Test YES-POS, Blood Gas Ventilator Setting NO, Blood Gas Inspired Oxygen 35% Microbiology 06/08/21 Gram Stain - Final, Resulted 06/08/21 Sputum Culture, Resulted Pending Assessment/Plan Assessment/Plan Assess & Plan/Chief Complaint Assessment: Acute hypoxic hypercapnic respiratory failure requiring BiPAP ABG on 06/07 is 7.36/50/55 Pneumonia- CT (06/08) showing worsening bilateral infiltrates Volume overload with pulmonary congestion on chest x-ray Severe anemia hemoglobin 5.8 at [facility] Coagulopathy from Coumadin 4.1 INR Atrial fibrillation CAD previous bypass Suspicion for RILEY Hypothyroidism Hypertension Hyperlipidemia Chronic kidney disease Plan: 06/07 ICU Transfuse Cardiology consult eICU consult Dr. Childs consult Monitor hemoglobin Lasix Gentle IV fluid BiPAP 06/08 ICU Start cefepime, doxycycline, budesonide, and solumedrol Cardiology consulted, will follow eICU consult Dr. Childs consulted, will follow Monitor hemoglobin- Hgb up to 7.5 on 06/08 from 6.1 on 06/07 2 blood transfusions given Lasix- 2 doses given Gentle IV fluid BiPAP- day #2 at settings 12/5 06/09 Continue medication regimen (antibiotics and steroids) Transfer patient from ICU to 4th floor Appreciate Dr. Childs and Cardiology Monitor hemoglobin- Hgb at 7.8 on 06/09 from 6.1 on 06/07 2 blood transfusions given Lasix- 2 doses given, 4300mL urine output on 06/08 Gentle IV fluid BiPAP- day #3 at settings 03/14 Clinical Quality Measures DVT/VTE Risk/Contraindication: Contraindications-Pharm: Other *list below* Other: JOSE Freeman DO 06/10/21 0535: Subjective Subjective/Events-last exam Patient doing much better and breathing better Labs reviewed Iron infusions maintained IV antibiotics continue Appreciate cardiology Diuresis successful Review of Systems General: Fatigue, Malaise Pulmonary: Dyspnea Objective Exam General: Alert, Oriented X3, Cooperative, No Acute Distress Lungs: Clear to Auscultation Heart: Regular Rate Psych/Mental Status: Mental Status NL Assessment/Plan Assessment/Plan Assess & Plan/Chief Complaint Transfer to fourth floor BiPAP at night High flow oxygen Appreciate Dr. Naz Mathias Supervisory-Addendum Brief Verification & Attestation Participated in pt care: history, MDM, physical Personally performed: exam, history, MDM, supervision of care Care discussed with: Medical Student Procedures: n/a Results interpretation: Verified all documentation Verification and Attestation of Medical Student E/M Service A medical student performed and documented this service in my presence. I reviewed and verified all information documented by the medical student and made modifications to such information, when appropriate. I personally performed the physical exam and medical decision making. Jose Jacques, Jun 10, 2021,05:33 RODRIGUEZ CIFUENTES Jun 09, 2021 10:51 JOSE JACQUES DO Jun 10, 2021 05:35
--- NOTE | 2021-06-09 11:35 | Physical Therapy Evaluation ---
PT Evaluation-General Medical Diagnosis Admission Date Jun 07, 2021 at 16:26 Medical Diagnosis: Acute hypoxic hypercapnic respiratory failure Onset Date: Jun 07, 2021 Therapy Diagnosis Therapy Diagnosis: weakness, debility Precautions Precautions/Isolations: Fall Prevention, Standard Precautions Referral Physician: Janusz Reason for Referral: Evaluation/Treatment Medical History Pertinent Medical History: Atrial Fib, Arthritis, CABG, CAD, HTN [place] [facility] [place] medical care needed for [place] Reviewed History: Yes Social History Home: Multilevel Current Living Status: Spouse Entry Into Home: Stairs With Railing PT Steps Into Home: 13 Patient lives on the second story and has to go up 13 steps to get to house but then has no stairs once he gets upstairs. Prior Prior Level of Function SCALE: Activities may be completed with or without assistive devices. 7-Bihrvgvkqa-vefdbdt completes the activity by him/herself with no assistance from a helper. 5-Set-up or Clean-up Assistance-helper sets up or cleans up; patient completes activity. [place] assists only prior to or following the activity. 4-Supervision or Touching Assistance-helper provides verbal cues and/or to uching/steadying and/or contact guard assistance as patient completes activity. Assistance may be provided throughout the activity or intermittently. 3-Partial/Moderate Assistance-helper does LESS THAN HALF the effort. [place] lifts, holds or supports trunk or limbs, but provides less than half the effort. 2-Substantial/Maximal Assistance-helper does MORE THAN HALF the effort. [place] lifts or holds trunk or limbs and provides more than half the effort. 7-Bprdmyjze-yhsxwv does ALL the effort. Patient does none of the effort to complete the activity. Or, the assistance of 2 or more helpers is required for the patient to complete the activity. If activity was not attempted, code reason: 7-Patient Refused. 9-Not Applicable-not attempted and the patient did not perform the activity before the current illness, exacerbation or injury. 10-Not Attempted due to Environmental Limitations-(lack of equipment, weather restraints, etc.). 88-Not Attempted due to Medical Conditions or Safety Concerns. Bed Mobility: 6 Transfers (B,C,W/C): 6 Gait: 6 Stairs: 6 Indoor Mobility (Ambulation): Independent Stairs: Independent Prior Device Use: Cane Patient uses cane while walking outside PRN PT Evaluation-Current Subjective Patient presents laying in bed and agrees to participate with physical therapy. Objective Patient Orientation: Person, Place, Time, Situation Attachments: Oxygen (8L HF NC) ROM/Strength ROM Lower Extremities WFL Strength Lower Extremities 4/5 strength grossly bilateral Integumentary/Posture Bowel Incontinence: No Bladder Incontinence: No Sensory Vision: Functional Hearing: Functional Transfers Lying to Sitting/Side of Bed(Q: 4 Sit to Stand (QC): 4 Chair/Ijm-pl-Mievi Xfer(QC): 4 Patient required CGA for all transfers Gait Does the Patient Walk?: Yes Mode of Locomotion: Walk Anticipated Mode of Locomotion: Walk Walk 10 feet (QC): 4 Walk 50 ft with 2 Turns(QC): 4 Walk 150 ft (QC): 4 Distance: 150' Gait Assistive Device: FWW Comments/Gait Description Patient ambulated 150' with FWW and CGA. Patient reports he has one leg that is 2'' shorter than the other and has altered gait pattern because of that but he is at baseline with gait sequence. Balance Sitting Static: Normal Sitting Dynamic: Normal Standing Static: Normal Standing Dynamic: Fair Assessment/Needs Patient ambulated for 150' with FWW and CGA. Patient ambulated with altered gait pattern due to leg length difference but patient reports that is normal and he has shoes to correct it. Patient reported SOA after ambulation and O2 saturation after ambulation was 90%. Rehab Potential: Fair PT Case Consultant Goals Case Consultant Goals PT Case Consultant Goals Time Frame: Jun 19, 2021 Roll Left & Right (QC): 6 Sit to Lying (QC): 6 Lying-Sitting on Side/Bed(QC): 6 Sit to Stand (QC): 6 Chair/Ero-zg-Kmpfj Xfer(QC): 6 Toilet Transfer (QC): 6 Does the Patient Walk: Yes Walk 10 feet (QC): 6 Walk 50ft with 2 Turns (QC): 6 Walk 150 ft (QC): 6 1 Step (curb) (QC): 6 4 Steps (QC): 6 12 Steps (QC): 6 PT Plan Problem List Problem List: Activity Tolerance, Functional Strength, Safety, Balance, Gait, Transfer, Bed Mobility, ROM Treatment/Plan Treatment Plan: Continue Plan of Care Treatment Plan: Bed Mobility, Education, Functional Activity Dilip, Functional Strength, Gait, Safety, Therapeutic Exercise, Transfers Treatment Duration: Jun 19, 2021 Frequency: 6 times per week Estimated Hrs Per Day: .25 hour per day Patient and/or Family Agrees t: Yes Safety Risks/Education Patient Education: Gait Training, Transfer Techniques, Reviewed Precautions, Safety Issues Teaching Recipient: Patient Teaching Methods: Discussion Response to Teaching: Reinforcement Needed Discharge Recommendations Therapy Discharge Recommendati: Home & Family, Post Acute PT Time/GCodes Time In: 1055 Time Out: 1110 Total Billed Treatment Time: 15 Total Billed Treatment 1 Visit EVMarielos 15 min JASIEL CERVANTES PT Jun 09, 2021 11:35
--- NOTE | 2021-06-09 13:31 | Occupational Therapy Eval ---
OT Evaluation-General/PLF Medical Diagnosis Admission Date Jun 07, 2021 at 16:26 Medical Diagnosis: Acute hypoxic hypercapnic respiratory failure Onset Date: Jun 07, 2021 Therapy Diagnosis Therapy Diagnosis: n/a Precautions Precautions/Isolations: Fall Prevention, Standard Precautions Referral Physician: Janusz Carmona Reason: Evaluation/Treatment Medical History Pertinent Medical History: Atrial Fib, Arthritis, CABG, CAD, HTN Current History Pt direct admit [place] [facility] [place] due to increased medical care needed for hypoxia. He is currently on 8L O2. Does not wear oxygen at baseline. Pt states that he lives with his in a multilevel home on the 2nd floor. 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 He was indep with ADLs and his performs all IADLs. He uses a cane at baseline. Reviewed History: Yes Social History Home: Multilevel Current Living Status: Spouse Entry Into Home: Stairs With Railing Steps Into Home: 13 ADL-Prior Level of Function SCALE: Activities may be completed with or without assistive devices. 1-Nvncyjzfhu-nserobf completes the activity by him/herself with no assistance from a helper. 5-Set-up or Clean-up Assistance-helper sets up or cleans up; patient completes activity. [place] assists only prior to or following the activity. 4-Supervision or Touching Assistance-helper provides verbal cues and/or touching/steadying and/or contact guard assistance as patient completes activity. Assistance may be provided throughout the activity or intermittently. 3-Partial/Moderate Assistance-helper does LESS THAN HALF the effort. [place] lifts, holds or supports trunk or limbs, but provides less than half the effort. 2-Substantial/Maximal Assistance-helper does MORE THAN HALF the effort. [place] lifts or holds trunk or limbs and provides more than half the effort. 9-Pelmoxihg-gvqvav does ALL the effort. Patient does none of the effort to complete the activity. Or, the assistance of 2 or more helpers is required for the patient to complete the activity. If activity was not attempted, code reason: 7-Patient Refused. 9-Not Applicable-not attempted and the patient did not perform the activity b efore the current illness, exacerbation or injury. 10-Not Attempted due to Environmental Limitations-(lack of equipment, weather restraints, etc.). 88-Not Attempted due to Medical Conditions or Safety Concerns. Self Care: Independent Functional Cognition: Independent OT Current Status Subjective Pt reports pain in back, does not give numerical value Appearance Pt returned to sitting in recliner, all needs within reach, family in the room. Mental Status/Objective Attachments: IV, Oxygen (8L NC) Current Glasses/Contacts: Yes Hearing Aids: No Dentures/Partials: No Hand Dominance: Right Upper Extremity ROM WNL Upper Extremity Strength 4/5 bilateral shoulders VSO-ulhfl-jdlodysy ADL-Treatment Eating (QC): 6 Oral Hygiene (QC): 5 (per clinical judgment) Lower Body Dressing (QC): 5 On/Off Footwear (QC): 6 Pt sitting in chair at OT arrival. Able to don LB clothing over feet with use of cross over method. He stood independently and able to maintain balance with zero UE support for >1 minute. He ambulated to/from bathroom with use of walker and supervision for safety. No LOB. Pt does have an altered gait pattern but reports this is baseline secondary to a leg length discrepancy. He appears slightly SOB once returning to chair but oxygen remains >92%. Pt denies any concerns regard ing self cares. Education provided on energy conservation strategies. OT to discharge pt at this time. Education OT Patient Education: Energy conservation, Modified ADL techniques, Progress toward Goal/Update tx plan, Purpose of tx/functional activities Teaching Recipient: Patient, Family Teaching Methods: Discussion Response to Teaching: Verbalize Understanding, Return Demonstration OT Shelter Goals Materials And Processes Manager Goals 1=Demonstrate adherence to instructed precautions during ADL tasks. 2=Patient will verbalize/demonstrate understanding of assistive devices/modifications for ADL. 3=Patient will improve strength/tolerance for activity to enable patient to perform ADL's. OT Education/Plan Problem List/Assessment Assessment: No Skilled OT Needs ID'd Discharge Recommendations Plan/Recommendations: Discontinue OT Therapy Discharge Recommendati: Home & Family Treatment Plan/Plan of Care Treatment,Training & Education: Yes Patient would benefit from OT for education, treatment and training to promote independence in ADL's, mobility, safety and/or upper extremity function for ADL's. Plan of Care: ADL Retraining Treatment Duration: Jun 09, 2021 Frequency: 1 time per week Estimated Hrs Per Day: .25 hour per day Agreement: Yes Time/GCodes Start Time: 13:09 Stop Time: 13:20 Total Time Billed (hr/min): 11 Billed Treatment Time 1 visit Denia Gamino OT Jun 09, 2021 13:31
--- NOTE | 2021-06-09 14:27 | Progress Note - Cardiology ---
Cardiology SOAP Progress Note Subjective: No cp or palp or syncope Shortness of breath and malaise are slowly improving No n/v/d Objective: I&O/Vital Signs 06/09/21 06/09/21 06/09/21 06/09/21 03:00 03:02 04:00 04:00 Temp 37.2 Pulse 64 76 Resp 26 15 B/P (MAP) 174/86 Pulse Ox 94 95 95 O2 Delivery NIV Bilevel NIV Bilevel O2 Flow Rate 45.00 35.00 FiO2 35 06/09/21 06/09/21 06/09/21 06/09/21 04:05 04:07 05:00 06:00 Pulse 75 76 72 68 Resp 23 15 11 10 B/P (MAP) 144/64 148/70 135/70 Pulse Ox 96 96 97 93 O2 Delivery NIV Bilevel NIV Bilevel NIV Bilevel NIV Bilevel O2 Flow Rate 45.00 35.00 35.00 35.00 06/09/21 06/09/21 06/09/21 06/09/21 07:00 07:00 07:46 07:55 Temp 37.4 Pulse 76 77 78 Resp 13 13 B/P (MAP) 162/69 Pulse Ox 93 96 O2 Delivery NIV Bilevel O2 Flow Rate 35.00 35.00 06/09/21 06/09/21 06/09/21 06/09/21 08:00 08:00 09:00 10:00 Pulse 85 81 87 Resp 26 12 18 B/P (MAP) 142/47 131/96 136/86 Pulse Ox 94 94 97 95 O2 Delivery NIV Bilevel High Flow N/C NIV Bilevel NIV Bilevel O2 Flow Rate 35.00 8.00 35.00 35.00 06/09/21 06/09/21 06/09/21 11:00 12:00 13:46 Temp 36.8 36.8 36.5 Pulse 89 83 Resp 22 20 B/P (MAP) 131/82 131/59 Pulse Ox 96 96 O2 Delivery Nasal Cannula Nasal Cannula O2 Flow Rate 8.00 8.00 06/09/21 00:00 Intake Total 300 ml Output Total 3050 ml Balance -2750 ml Constitutional: AAO x 3, well-developed, well-nourished, other (on BiPAP) Respiratory: No accessory muscle use, No respiratory distress; chest expansion is symmetric, chest is bilaterally symmetric, rhonchi (scattered), other (lung sounds course) Cardiovascular: irregularly irregular; No JVD; S1 and S2 Gastrointestional: No tender; round; No guarding; audible bowel sounds Extremities: other (mod bilat LE swelliing) Neurologic/Psychiatric: other (moves all limbs equally) Skin: normal color, warm/dry, other (abdominal scar from appendectomy) Results/Procedures: Labs Laboratory Tests 06/09/21 03:05: White Blood Count 8.9, Red Blood Count 3.31L, Hemoglobin 7.8L, Hematocrit 27L, Mean Corpuscular Volume 81, Mean Corpuscular Hemoglobin 24L, Mean Corpuscular Hemoglobin Concent 29L, Red Cell Distribution Width 17.4H, Platelet Count 377, Mean Platelet Volume 9.2, Immature Granulocyte % (Auto) 0, Neutrophils (%) (Auto) 90H, Lymphocytes (%) (Auto) 6L, Monocytes (%) (Auto) 3, Eosinophils (%) (Auto) 1, Basophils (%) (Auto) 0, Neutrophils # (Auto) 8.0H, Lymphocytes # (Auto) 0.5L, Monocytes # (Auto) 0.2, Eosinophils # (Auto) 0.1, Basophils # (Auto) 0.0, Immature Granulocyte # (Auto) 0.0, Neutrophils % (Manual) 93, Lymphocytes % (Manual) 6, Monocytes % (Manual) 1, Nucleated Red Blood Cells 1, Polychromasia SLIGHT, Hypochromasia MODERATE, Microcytosis MODERATE, Sodium Level 136, Potassium Level 4.0, Chloride Level 97L, Carbon Dioxide Level 25, Anion Gap 14, Blood Urea Nitrogen 18, Creatinine 0.87, Estimat Glomerular Filtration Rate 88, BUN/Creatinine Ratio 21, Glucose Level 125H, Calcium Level 8.6, Corrected Calcium 9.0, Phosphorus Level 4.0, Magnesium Level 2.1, Total Bilirubin 0.5, Aspartate Amino Transf (AST/SGOT) 30, Alanine Aminotransferase (ALT/SGPT) 38, Alkaline Phosphatase 87, Total Protein 7.3, Albumin 3.5, Thyroid Stimulating Hormone (TSH) 1.03 06/09/21 05:05: Prothrombin Time 25.9H, INR Comment 2.3H 06/09/21 08:00: Blood Gas Puncture Site LT RAD, Blood Gas Patient Temperature 37.1, Arterial Blood pH 7.47H, Arterial Blood Partial Pressure CO2 45, Arterial Blood Partial Pressure O2 70L, Arterial Blood HCO3 32H, Arterial Blood Total CO2 33.1H, Arterial Blood Oxygen Saturation 95, Arterial Blood Base Excess 7.8H, Marlo Test YES-POS, Blood Gas Ventilator Setting NO, Blood Gas Inspired Oxygen 35% Microbiology 06/08/21 Gram Stain - Final, Resulted 06/08/21 Sputum Culture, Resulted Pending Laboratory Tests 06/07/21 16:40 06/08/21 01:30 06/08/21 06:00 06/08/21 13:53 06/09/21 03:05 A/P: Assessment: Sinus node dysfunction: A Fib with a slow vent response alternating with sinus rhythm with trifascicular block Anemia - undetermined etiology, GI bleed suspected - management per Dr Boudreaux Acute diastolic CHF - Echo of 06/08/21: LVEF 55-65%, dilated atria, mild to mod conc LVH, PASP 40-45 mmHg - diuretics today and echocardiogram Pneumonia - management per medical services CAD - h/o CABG [address] Green at [facility] in [place], [place] PAF - OAC with warfarin - currently being held - Supra-therapeutic INR - being held PAD - reports h/o bilat fem-pop (which he reports both have failed) - managed by Dr. Green at [facility] in [place], [place] HTN HLD Abnormal ECG. ECG of 06/07/21: A Fib with a relatively slow vent response, RBBB, LAFB Plan: Continue to hold amiodarone + digoxin + carvedilol because they may be the reason for his bradycardia. Continue to monitor closely OAC with warfarin being held at this time - advise source of bleeding be determined and treated so that OAC may be resumed for stroke prophylaxis Diuretics as needed and as tolerated Monitor lab closely Pneumonia - management per Medical services CB CONTRERAS MD FACP FAC CCDS Jun 09, 2021 14:27
[2021-06-09] MEDS: ASPIRIN E.C. 81 MG (ECOTRIN) TAB PO SCH (20:40)
[2021-06-09] MEDS: LOSARTAN 100 MG (COZAAR) TABLET PO SCH (20:40)
[2021-06-09] MEDS: guaiFENesin (MUCINEX) 600 MG TAB PO SCH (20:40)
[2021-06-10 00:48] VITALS: BP 136/86
[2021-06-10] MEDS: RT-ALBUTEROL/IPRATROPIUM 3 ML (DUONEB) VIAL INH SCH ×4 (03:30→22:03)
[2021-06-10] MEDS: methylPREDNISolone 40 MG/ML (Solu-MEDROL) VIAL IV SCH ×4 (05:14→23:37)
[2021-06-10] MEDS: CEFEPIME INJECTION 1,000 MG in NS (IVPB) 50 ML IV SCH ×4 (05:14→23:37)
[2021-06-10] MEDS: CYANOCOBALAMIN 1,000 MCG (VITAMIN B-12) TABLET PO SCH (06:16)
[2021-06-10] MEDS: FUROSEMIDE 40 MG/4 ML INJ (LASIX) IVP SCH (06:16)
[2021-06-10 06:37] LABS: BASOPHILS % (AUTO) 0 % (0-10); EOSINOPHILS # (AUTO) 0.1 10^3/uL (0.0-0.3); EOSINOPHILS % (AUTO) 0 % (0-10); HEMATOCRIT 25 % (40-54); HEMOGLOBIN 7.2 g/dL (13.3-17.7); LYMPHOCYTES # (AUTO) 0.7 10^3/uL (1.0-4.0); LYMPHOCYTES % (AUTO) 5 % (12-44); MEAN CORPUSCULAR HEMOGLOBIN 23 pg (25-34); MEAN CORPUSCULAR HGB CONC 29 g/dL (32-36); MEAN CORPUSCULAR VOLUME 81 fL (80-99); MEAN PLATELET VOLUME 9.2 fL (9.0-12.2); MONOCYTES # (AUTO) 0.8 10^3/uL (0.0-1.0); MONOCYTES % (AUTO) 5 % (0-12); NEUTROPHILS # (AUTO) 12.7 10^3/uL (1.8-7.8); NEUTROPHILS % (AUTO) 89 % (42-75); PLATELET COUNT 367 10^3/uL (130-400); WHITE BLOOD COUNT 14.4 10^3/uL (4.3-11.0)
[2021-06-10 06:45] LABS: ALBUMIN 3.2 GM/DL (3.2-4.5)
[2021-06-10 06:46] LABS: POTASSIUM 3.8 MMOL/L (3.6-5.0)
[2021-06-10 06:47] LABS: CALCIUM 8.6 MG/DL (8.5-10.1)
[2021-06-10 06:48] LABS: TOTAL PROTEIN 6.6 GM/DL (6.4-8.2)
[2021-06-10 06:50] LABS: INR 1.9 (0.8-1.4); PROTHROMBIN TIME PATIENT 22.7 SEC (12.2-14.7)
[2021-06-10 06:50] LABS: BILIRUBIN,TOTAL 0.5 MG/DL (0.1-1.0)
[2021-06-10 06:52] LABS: CREATININE SERUM 0.82 MG/DL (0.60-1.30)
[2021-06-10 07:09] LABS: ANISOCYTOSIS MODERATE; BAND NEUTROPHILS 0 %; BASOPHILS % (MANUAL) 0 %; EOSINOPHILS % (MANUAL) 0 %; HYPOCHROMASIA MODERATE; LYMPHOCYTES % (MANUAL) 7 %; MONOCYTES % (MANUAL) 8 %; NEUTROPHILS % (MANUAL) 85 %; POLYCHROMASIA MODERATE
--- NOTE | 2021-06-10 07:16 | Progress Note - Surgery ---
GATO ZULETA 06/10/21 0716: Subjective Date Seen by a Provider: Jun 10, 2021 Time Seen by a Provider: 06:50 Subjective/Events-last exam Pt much more alert and talkative this morning. States he "doesn't feel quite as good as yesterday." He reports two very small bowel movements that were brown/green in color. They were soft. No blood was seen by him or his nurse. He has been passing gas. Is in no pain other than a slight cough making his back hurt. He was on NC in the room, but slept with bipap overnight. Pt remains on a liquid diet; he had broth and jello for dinner last night. Pt denies CP, palpitations, reflux, N/V, abdominal pain, SOB, and fever at this time. Review of Systems General: No Chills, No Malaise HEENT: No Head Aches, No Visual Changes Pulmonary: No Dyspnea; Cough Cardiovascular: No: Chest Pain, Palpitations Gastrointestinal: No: Nausea, Vomiting, Abdominal Pain Genitourinary: No Dysuria; Frequency Musculoskeletal: No: neck pain, leg pain Neurological: No: Weakness, Change in speech Focused Exam Lactate Level 06/08/21 06:00: Lactic Acid Level 1.11 Respiratory: No Accessory Muscle Use, No Respiratory Distress, Wheezing Cardiovascular: No Murmur, Irregularly Irregular Peripheral Pulses: 2+ Radial Pulses (R), 2+ Radial Pulses (L) Skin: normal color, warm/dry, other (abdominal scar from appendectomy) Objective Exam Vital Signs Date Time Temp Pulse Resp B/P (MAP) Pulse Ox O2 Delivery O2 Flow Rate FiO2 06/10/21 03:35 65 18 95 35.00 06/10/21 03:18 37.2 74 17 140/63 92 NIV Bilevel 35.00 06/10/21 01:00 71 06/10/21 00:48 37.4 87 96 06/09/21 23:08 37.1 72 13 133/62 91 NIV Bilevel 35.00 06/09/21 21:20 90 High Flow N/C 8.00 06/09/21 20:45 High Flow N/C 8.00 06/09/21 19:59 79 06/09/21 19:56 37.4 81 20 136/62 94 High Flow N/C 8.00 06/09/21 16:02 95 High Flow N/C 8.00 06/09/21 15:37 37.1 82 20 148/72 92 High Flow N/C 8.00 06/09/21 13:46 36.5 83 20 131/59 96 Nasal Cannula 8.00 06/09/21 12:00 36.8 06/09/21 11:00 36.8 89 22 131/82 96 Nasal Cannula 8.00 06/09/21 10:00 87 18 136/86 95 NIV Bilevel 35.00 06/09/21 09:00 81 12 131/96 97 NIV Bilevel 35.00 06/09/21 08:00 94 High Flow N/C 8.00 06/09/21 08:00 85 26 142/47 94 NIV Bilevel 35.00 06/09/21 07:55 78 13 96 35.00 06/09/21 07:46 37.4 I & O 06/10/21 07:00 Intake Total 2340 ml Output Total 1450 ml Balance 890 ml Capillary Refill : Less Than 3 Seconds General Appearance: No Apparent Distress, Chronically ill, Obese Respiratory: No Respiratory Distress, Wheezing Cardiovascular: No Murmur, Irregularly Irregular Peripheral Pulses: 2+ Dorsalis Pedis (R), 2+ Left Dors-Pedis (L), 2+ Radial Pulses (R), 2+ Radial Pulses (L) Gastrointestinal: non tender, soft, no organomegaly, other (scars on abd from surgery, CABG and Appy) Extremity: Normal Inspection, Pedal Edema Neurologic/Psychiatric: Alert, Normal Mood/Affect Skin: Normal Color, Warm/Dry, Other (abdominal scar from appendectomy) Results Lab Laboratory Tests 06/09/21 08:00: Blood Gas Puncture Site LT RAD, Blood Gas Patient Temperature 37.1, Arterial Blood pH 7.47H, Arterial Blood Partial Pressure CO2 45, Arterial Blood Partial Pressure O2 70L, Arterial Blood HCO3 32H, Arterial Blood Total CO2 33.1H, Arterial Blood Oxygen Saturation 95, Arterial Blood Base Excess 7.8H, Marlo Test YES-POS, Blood Gas Ventilator Setting NO, Blood Gas Inspired Oxygen 35% 06/10/21 05:07: Prothrombin Time 22.7H, INR Comment 1.9H 06/10/21 06:32: White Blood Count 14.4H, Red Blood Count 3.08L, Hemoglobin 7.2L, Hematocrit 25L, Mean Corpuscular Volume 81, Mean Corpuscular Hemoglobin 23L, Mean Corpuscular Hemoglobin Concent 29L, Red Cell Distribution Width 17.9H, Platelet Count 367, Mean Platelet Volume 9.2, Immature Granulocyte % (Auto) 1, Neutrophils (%) (Auto) 89H, Lymphocytes (%) (Auto) 5L, Monocytes (%) (Auto) 5, Eosinophils (%) (Auto) 0, Basophils (%) (Auto) 0, Neutrophils # (Auto) 12.7H, Lymphocytes # (Auto) 0.7L, Monocytes # (Auto) 0.8, Eosinophils # (Auto) 0.1, Basophils # (Auto) 0.0, Immature Granulocyte # (Auto) 0.1, Neutrophils % (Manual) 85, Lymphocytes % (Manual) 7, Monocytes % (Manual) 8, Eosinophils % (Manual) 0, Basophils % (Manual) 0, Band Neutrophils 0, Polychromasia MODERATE, Hypochromasia MODERATE, Anisocytosis MODERATE, Sodium Level 134L, Potassium Level 3.8, Chloride Level 95L, Carbon Dioxide Level 27, Anion Gap 12, Blood Urea Nitrogen 19H, Creatinine 0.82, Estimat Glomerular Filtration Rate 90, BUN/Creatinine Ratio 23, Glucose Level 120H, Calcium Level 8.6, Corrected Calcium 9.2, Total Bilirubin 0.5, Aspartate Amino Transf (AST/SGOT) 20, Alanine Aminotransferase (ALT/SGPT) 32, Alkaline Phosphatase 72, Total Protein 6.6, Albumin 3.2 Microbiology 06/08/21 Gram Stain - Final, Resulted 06/08/21 Sputum Culture - Preliminary, Resulted Culture In Progress 06/08/21 Blood Culture - Preliminary, Resulted No growth Assessment/Plan Assessment/Plan Assessment/Plan Anemia CAD HTN Abnormal Coagulopathy AFib CXR-- per radiology, showed interstitial lung disease and a nodular density in the left upper lobe; recommends CT when stable Repeat CXR 06/08-- per radiology, showed worsening bilateral infiltrates/small effusions Repeat CXR 06/09-- slight improvement bilateral perihilar infiltrates; cardiomegaly; central pulmonary venous congestion Abdominal US-- showed mildly dilated common bile duct (12mm); normal GB and biliary duct is not dilated EKG-- showed AFIB, RBBB, LAFB INR- 3.9 to 3.3--Now 1.9 on 06/10/2021 PT- now 22.7 from 25.9 WBC inc 14.4 from 8.9; on Solumedrol Continue Doxy and Cefepime Hgb dec (7.2 from 7.8) Continue to hold Coumadin Hemoccult when possible May need EGD if Hgb remains low Cardiology has held his amiodarone, digoxin, and carvedilol from home Monitor labs and vitals Clinical Quality Measures DVT/VTE Risk/Contraindication: Contraindications-Pharm: Other *list below* Other: MATTHEW Choi DO 06/10/21 1637: Subjective Time Seen by a Provider: 11:37 Subjective/Events-last exam Pt seen and examined, had some very small brown poop; "in little balls". Denies abd pain. Review of Systems General: No Chills Pulmonary: No Dyspnea; Cough Cardiovascular: No: Chest Pain, Palpitations Gastrointestinal: No: Nausea, Vomiting, Abdominal Pain Objective Exam General Appearance: Chronically ill, Obese Respiratory: No Respiratory Distress, Wheezing Cardiovascular: No Murmur, Irregularly Irregular Gastrointestinal: non tender, soft, no organomegaly Assessment/Plan Assessment/Plan Assessment/Plan Anemia CAD HTN Abnormal Coagulopathy AFib CXR-- per radiology, showed interstitial lung disease and a nodular density in the left upper lobe; recommends CT when stable Repeat CXR 06/08-- per radiology, showed worsening bilateral infiltrates/small effusions Repeat CXR 06/09-- slight improvement bilateral perihilar infiltrates; cardiomegaly; central pulmonary venous congestion INR- 3.9 to 3.3--Now 1.9 on 06/10/2021 PT- now 22.7 from 25.9 WBC inc 14.4 from 8.9; on Solumedrol Continue Doxy and Cefepime Hgb dec (7.2 from 7.8) Continue to hold Coumadin Hemoccult when possible Cardiology has held his amiodarone, digoxin, and carvedilol from home Monitor labs and vitals I asked pt and his about doing an EGD; they both said yes "we gotta figure out what is going on". Pt had some coffee at nine and drank a little water appx 20 minutes before I saw him. Therefore will schedule EGD for around 1pm. All questions answered to their satisfaction. Supervisory-Addendum Brief Verification & Attestation Participated in pt care: history, MDM, physical Personally performed: exam, history, MDM, supervision of care Care discussed with: Medical Student Procedures: n/a Verification and Attestation of Medical Student E/M Service A medical student performed and documented this service. I then reviewed and verified all information documented by the medical student and made m odifications to such information, when appropriate. I personally performed a physical exam, medical decision making and then discussed any differences between the notes and made revisions as necessary to create one note. Matthew Childs , 06/10/21 , 16:36 GATO ZULETA Jun 10, 2021 07:16 MATTHEW CHILDS DO Jun 10, 2021 16:37
[2021-06-10] MEDS: LEVOTHYROXINE 25 MCG (LEVOTHROID) TAB PO SCH (09:31)
[2021-06-10] MEDS: DOXYCYCLINE INJECTION 100 MG in NS (IVPB) 100 ML IV SCH (09:31)
[2021-06-10] MEDS: guaiFENesin (MUCINEX) 600 MG TAB PO SCH ×2 (09:31→20:45)
[2021-06-10] MEDS: polyethylene glycoL POWDER 17 GM (MIRALAX) PACK PO SCH ×2 (09:31→20:45)
[2021-06-10] MEDS: PANTOPRAZOLE 40 MG (PROTONIX) VIAL IV SCH (09:31)
[2021-06-10] MEDS: LACTULOSE SYRUP 10GM/15ML (ENULOSE) 30ML UDC PO SCH ×2 (09:31→20:45)
[2021-06-10] MEDS: DOCUSATE SODIUM 100 MG (COLACE) CAP PO SCH ×2 (09:31→20:45)
[2021-06-10] MEDS: SENNOSIDES 8.6 MG (SENOKOT) TAB PO SCH ×2 (09:32→20:45)
--- NOTE | 2021-06-10 09:38 | Progress Note - Cardiology ---
Cardiology SOAP Progress Note Subjective: Sitting up in bed eating cl liq breakfast No c/o CP, SOB or palpitations Objective: I&O/Vital Signs 06/09/21 06/10/21 06/10/21 06/10/21 23:08 00:48 01:00 03:18 Temp 37.1 37.4 37.2 Pulse 72 87 71 74 Resp 13 17 B/P (MAP) 133/62 140/63 Pulse Ox 91 96 92 O2 Delivery NIV Bilevel NIV Bilevel O2 Flow Rate 35.00 35.00 06/10/21 06/10/21 06/10/21 03:35 07:15 08:00 Temp 37.2 Pulse 65 73 75 Resp 18 16 B/P (MAP) 121/56 Pulse Ox 95 94 O2 Delivery High Flow N/C O2 Flow Rate 35.00 8.00 06/09/21 23:59 Intake Total 1440 ml Output Total 300 ml Balance 1140 ml Constitutional: AAO x 3, well-developed, well-nourished, other (on BiPAP) Respiratory: No accessory muscle use, No respiratory distress; chest expansion is symmetric, chest is bilaterally symmetric, rhonchi (scattered), other (lung sounds course) Cardiovascular: irregularly irregular; No JVD; S1 and S2 Gastrointestional: No tender; round; No guarding; audible bowel sounds Extremities: other (mod bilat LE swelliing) Neurologic/Psychiatric: other (moves all limbs equally) Skin: normal color, warm/dry, other (abdominal scar from appendectomy) Results/Procedures: Labs Laboratory Tests 06/10/21 05:07: Prothrombin Time 22.7H, INR Comment 1.9H 06/10/21 06:32: White Blood Count 14.4H, Red Blood Count 3.08L, Hemoglobin 7.2L, Hematocrit 25L, Mean Corpuscular Volume 81, Mean Corpuscular Hemoglobin 23L, Mean Corpuscular Hemoglobin Concent 29L, Red Cell Distribution Width 17.9H, Platelet Count 367, Mean Platelet Volume 9.2, Immature Granulocyte % (Auto) 1, Neutrophils (%) (Auto) 89H, Lymphocytes (%) (Auto) 5L, Monocytes (%) (Auto) 5, Eosinophils (%) (Auto) 0, Basophils (%) (Auto) 0, Neutrophils # (Auto) 12.7H, Lymphocytes # (Auto) 0.7L, Monocytes # (Auto) 0.8, Eosinophils # (Auto) 0.1, Basophils # (Auto) 0.0, Immature Granulocyte # (Auto) 0.1, Neutrophils % (Manual) 85, Lymphocytes % (Manual) 7, Monocytes % (Manual) 8, Eosinophils % (Manual) 0, Bas ophils % (Manual) 0, Band Neutrophils 0, Polychromasia MODERATE, Hypochromasia MODERATE, Anisocytosis MODERATE, Sodium Level 134L, Potassium Level 3.8, Chloride Level 95L, Carbon Dioxide Level 27, Anion Gap 12, Blood Urea Nitrogen 19H, Creatinine 0.82, Estimat Glomerular Filtration Rate 90, BUN/Creatinine Ratio 23, Glucose Level 120H, Calcium Level 8.6, Corrected Calcium 9.2, Total Bilirubin 0.5, Aspartate Amino Transf (AST/SGOT) 20, Alanine Aminotransferase (ALT/SGPT) 32, Alkaline Phosphatase 72, Total Protein 6.6, Albumin 3.2 Microbiology 06/08/21 Gram Stain - Final, Resulted 06/08/21 Sputum Culture - Preliminary, Resulted Culture In Progress 06/08/21 Blood Culture - Preliminary, Resulted No growth Laboratory Tests 06/08/21 13:53 06/09/21 03:05 06/10/21 06:32 A/P: Assessment: Sinus node dysfunction: A Fib with a slow vent response alternating with sinus rhythm with trifascicular block - HR improved following cessation of Amiodarone, Dig and Coreg Anemia - undetermined etiology, GI bleed suspected - management per Dr Boudreaux Acute diastolic CHF - Echo of 06/08/21: LVEF 55-65%, dilated atria, mild to mod conc LVH, PASP 40-45 mmHg - diuretics today and echocardiogram Pneumonia - management per medical services CAD - h/o CABG [address] Green at [facility] in [place], [place] PAF - OAC with warfarin - currently being held - Sub-therapeutic INR - being held PAD - reports h/o bilat fem-pop (which he reports both have failed) - managed by Dr. Green at [facility] in [place], [place] HTN HLD Abnormal ECG. ECG of 06/07/21: A Fib with a relatively slow vent response, RBBB, LAFB Plan: Continue to hold amiodarone + digoxin + carvedilol because they may be the reason for his bradycardia. Continue to monitor closely H/H lower today OAC with warfarin being held at this time - advise source of bleeding be determined and treated so that OAC may be resumed for stroke prophylaxis YASH Change diuretics to oral Monitor lab closely Pneumonia - management per Medical services JALEESA GARZON Jun 10, 2021 09:38
[2021-06-10] MEDS: RT-BUDESONIDE NEBS 0.5 MG/2ML (PULMICORT) AMP INH SCH ×2 (10:12→22:03)
--- NOTE | 2021-06-10 10:29 | Physical Therapy Daily Note ---
PT Daily Note-Current Subjective Patient presents laying in bed and agrees to get up and walk with physical therapy. Mental Status Patient Orientation: Person, Place, Time, Situation Attachments: Oxygen (8L NC), IV Transfers SCALE: Activities may be completed with or without assistive devices. 5-Qhfzcdfezk-dkvoohy completes the activity by him/herself with no assistance from a helper. 5-Set-up or Clean-up Assistance-helper sets up or cleans up; patient completes activity. [place] assists only prior to or following the activity. 4-Supervision or Touching Assistance-helper provides verbal cues and/or touching/steadying and/or contact guard assistance as patient completes activity. Assistance may be provided throughout the activity or intermittently. 3-Partial/Moderate Assistance-helper does LESS THAN HALF the effort. [place] lifts, holds or supports trunk or limbs, but provides less than half the effort. 2-Substantial/Maximal Assistance-helper does MORE THAN HALF the effort. [place] lifts or holds trunk or limbs and provides more than half the effort. 0-Bpwnrqcej-mkawkl does ALL the effort. Patient does none of the effort to complete the activity. Or, the assistance of 2 or more helpers is required for the patient to complete the activity. If activity was not attempted, code reason: 7-Patient Refused. 9-Not Applicable-not attempted and the patient did not perform the activity before the current illness, exacerbation or injury. 10-Not Attempted due to Environmental Limitations-(lack of equipment, weather restraints, etc.). 88-Not Attempted due to Medical Conditions or Safety Concerns. Lying to Sitting/Side of Bed(Q: 4 Sit to Stand (QC): 4 Chair/Gad-bm-Wgrmo Xfer(QC): 4 Patient requires SBA for all transfers Gait Training Does the Patient Walk?: Yes Distance: 200' Walk 10 feet (QC): 4 Walk 50 ft with 2 Turns(QC): 4 Walk 150 ft (QC): 4 Gait Assistive Device: FWW Patient requires SBA for ambulation Assessment Patient ambulated 200' with FWW and SBA. Patient reported SOA after ambulation and had to take one standing rest break due to SOA while ambulating. Patient needs to increase ambulation endurance to return to PLOF. PT Short Term Goals Short Term Goals Time Frame: Jun 10, 2021 PT Impregnator And Drier Helper Goals Custodial Goals PT Impregnator And Drier Helper Goals Time Frame: Jun 19, 2021 Roll Left & Right (QC): 6 Sit to Lying (QC): 6 Lying-Sitting on Side/Bed(QC): 6 Sit to Stand (QC): 6 Chair/Pit-vn-Atbsw Xfer(QC): 6 Toilet Transfer (QC): 6 Does the Patient Walk: Yes Walk 10 feet (QC): 6 Walk 50ft with 2 Turns (QC): 6 Walk 150 ft (QC): 6 1 Step (curb) (QC): 6 4 Steps (QC): 6 12 Steps (QC): 6 PT Plan Problem List Problem List: Activity Tolerance, Functional Strength, Safety, Balance, Gait, Transfer, Bed Mobility, ROM Treatment/Plan Treatment Plan: Continue Plan of Care Treatment Plan: Bed Mobility, Education, Functional Activity Dilip, Functional Strength, Gait, Safety, Therapeutic Exercise, Transfers Treatment Duration: Jun 19, 2021 Frequency: 6 times per week Estimated Hrs Per Day: .25 hour per day Patient and/or Family Agrees t: Yes Time/GCodes Time In: 934 Time Out: 952 Total Billed Treatment Time: 18 Total Billed Treatment 1 Visit FA 18 min DARRELL EPNNINGTON PT Jun 10, 2021 10:28
--- NOTE | 2021-06-10 12:18 | Progress Note ---
RODRIGUEZ CIFUENTES 06/10/21 1218: Subjective Date Seen by a Provider: Jun 10, 2021 Time Seen by a Provider: 09:14 Subjective/Events-last exam CC: Dyspnea HPI: This is a 76-year-old white male clinic patient of Dr. Moncada and Dr. Tomas Cardiology who has a past medical history of heart disease previous bypass, hypothyroidism, atrial fibrillation, Coumadin for anticoagulation for stroke prophylaxis and presumed sleep apnea who presented to [facility] ICU for higher level of care cardiology and pulmonary critical care from [facility] ER due to presumed GI bleed with elevated INR. Hemoccult was negative. No bloody stools per patient. Patient was found to have severe hypoxemia on ABG requiring oxygen supplementation. He does not regularly wear oxygen at home. He does not wear a CPAP but reports that he has signs of sleep apnea. Patient has been progressively weaker and weaker for the last 3 weeks. He denied any chest pain. No fever. Covid test was negative. Chest x-ray revealed pulmonary congestion. No evidence of pneumonia. Patient was found to have very low hemoglobin of 5.8 requiring 2 units of blood transfusion. Dr. Childs has been consulted. Dr. Mathias has been consulted. Patient will BiPAP placed since it appears he needs that anyway and ABG was checked and he has hypercapnia with mild respiratory acidosis. Subjective/Events-last exam Patient reports that he is doing well and feeling good. No tiredness or SOA. Is eating a soft diet and drinking fluids. Did have a little bit of soft, mushy bowel movement yesterday. Uses O2 by NC during the day and BiPAP at night. Patient is continuing to improve. INR is 1.9 today. Hemoglobin decreased slightly today. Review of Systems General: No Chills, No Night Sweats, No Fatigue HEENT: No Head Aches, No Visual Changes Pulmonary: No Dyspnea, No Cough Cardiovascular: No: Chest Pain, Palpitations Gastrointestinal: No: Nausea, Vomiting, Abdominal Pain Genitourinary: No Dysuria, No Frequency Musculoskeletal: No: neck pain, back pain Neurological: No: Weakness, Numbness Focused Exam Lactate Level 06/08/21 06:00: Lactic Acid Level 1.11 Objective Exam Last Set of Vital Signs Vital Signs Date Time Temp Pulse Resp B/P (MAP) Pulse Ox O2 Delivery O2 Flow Rate FiO2 06/10/21 10:16 High Flow N/C 6.00 06/10/21 10:12 96 06/10/21 08:00 37.2 75 16 121/56 06/09/21 04:00 35 Capillary Refill : Less Than 3 Seconds I&O Intake and Output 06/10/21 00:00 Intake Total 2040 ml Output Total 1400 ml Balance 640 ml Intake Oral 2040 ml Output Urine Total 1400 ml # Voids 4 # Bowel Movements 2 General: Alert, Oriented X3 Lungs: Clear to Auscultation, Normal Air Movement Heart: Regular Rate Extremities: Other (2+ pitting edema) Results Lab Laboratory Tests 06/10/21 05:07: Prothrombin Time 22.7H, INR Comment 1.9H 06/10/21 06:32: White Blood Count 14.4H, Red Blood Count 3.08L, Hemoglobin 7.2L, Hematocrit 25L, Mean Corpuscular Volume 81, Mean Corpuscular Hemoglobin 23L, Mean Corpuscular Hemoglobin Concent 29L, Red Cell Distribution Width 17.9H, Platelet Count 367, Mean Platelet Volume 9.2, Immature Granulocyte % (Auto) 1, Neutrophils (%) (Auto) 89H, Lymphocytes (%) (Auto) 5L, Monocytes (%) (Auto) 5, Eosinophils (%) (Auto) 0, Basophils (%) (Auto) 0, Neutrophils # (Auto) 12.7H, Lymphocytes # (Auto) 0.7L, Monocytes # (Auto) 0.8, Eosinophils # (Auto) 0.1, Basophils # (Auto) 0.0, Immature Granulocyte # (Auto) 0.1, Neutrophils % (Manual) 85, Lymphocytes % (Manual) 7, Monocytes % (Manual) 8, Eosinophils % (Manual) 0, Basophils % (Manual) 0, Band Neutrophils 0, Polychromasia MODERATE, Hypochromasia MODERATE, Anisocytosis MODERATE, Sodium Level 134L, Potassium Level 3.8, Chloride Level 95L, Carbon Dioxide Level 27, Anion Gap 12, Blood Urea Nitrogen 19H, Creatinine 0.82, Estimat Glomerular Filtration Rate 90, BUN/Creatinine Ratio 23, Glucose Level 120H, Calcium Level 8.6, Corrected Calcium 9.2, Total Bilirubin 0.5, Aspartate Amino Transf (AST/SGOT) 20, Alanine Aminotransferase (ALT/SGPT) 32, Alkaline Phosphatase 72, Total Protein 6.6, Albumin 3.2 Microbiology 06/08/21 Gram Stain - Final, Resulted 06/08/21 Sputum Culture - Preliminary, Resulted Culture In Progress 06/08/21 Blood Culture - Preliminary, Resulted No growth Assessment/Plan Assessment/Plan Assess & Plan/Chief Complaint Assessment: Acute hypoxic hypercapnic respiratory failure requiring BiPAP ABG on 06/07 is 7.36/50/55 Pneumonia- CT (06/08) showing worsening bilateral infiltrates Volume overload with pulmonary congestion on chest x-ray Severe anemia hemoglobin 5.8 at [facility] Coagulopathy from Coumadin 4.1 INR Atrial fibrillation CAD previous bypass Suspicion for RILEY Hypothyroidism Hypertension Hyperlipidemia Chronic kidney disease Plan: 06/07 ICU Transfuse Cardiology consult eICU consult Dr. Childs consult Monitor hemoglobin Lasix Gentle IV fluid BiPAP 06/08 ICU Start cefepime, doxycycline, budesonide, and solumedrol Cardiology consulted, will follow eICU consult Dr. Childs consulted, will follow Monitor hemoglobin- Hgb up to 7.5 on 06/08 from 6.1 on 06/07 2 blood transfusions given Lasix- 2 doses given Gentle IV fluid BiPAP- day #2 at settings 12/5 06/09 Continue medication regimen (antibiotics and steroids) Transfer patient from ICU to 4th floor Apprec[address] Dr. Childs and Cardiology Monitor hemoglobin- Hgb at 7.8 on 06/09 from 6.1 on 06/07 2 blood transfusions given Lasix- 2 doses given, 4300mL urine output on 06/08 Gentle IV fluid BiPAP- day #3 at settings 12/5 3/ Continue IV Abx and Steroids Appreciate Dr. Childs and Cardiology Possible scope for no improvement in Hgb Monitor hemoglobin- Hgb at 7.2 on 06/10 from 6.1 on 06/07 2 blood transfusions given Lasix- 1400mL urine output on 06/09 Continue O2 NC during day and BiPAP at night Clinical Quality Measures DVT/VTE Risk/Contraindication: Contraindications-Pharm: Other *list below* Other: CRISTY Freeman DO 06/11/21 0539: Subjective Subjective/Events-last exam Patient doing much better BiPAP at night nasal cannula during the day EGD today by Dr. Childs revealed no source of bleeding Bowels are moving now Hemoglobin stable Working with PT and OT Review of Systems General: Fatigue, Malaise Pulmonary: Dyspnea Objective Exam General: Alert, Oriented X3, Cooperative, No Acute Distress Lungs: Clear to Auscultation, Normal Air Movement Heart: Regular Rate, Normal S1, Normal S2, No Murmurs Psych/Mental Status: Mental Status NL, Mood NL Assessment/Plan Assessment/Plan Assess & Plan/Chief Complaint Monitor hemoglobin Decrease steroids EGD today Supervisory-Addendum Brief Verification & Attestation Participated in pt care: history, MDM, physical Personally performed: exam, history, MDM, supervision of care Care discussed with: Medical Student Procedures: n/a Results interpretation: Verified all documentation Verification and Attestation of Medical Student E/M Service A medical student performed and documented this service in my presence. I reviewed and verified all information documented by the medical student and made modifications to such information, when appropriate. I personally performed the physical exam and medical decision making. Cristy Jacques, Jun 11, 2021,05:38 RODRIGUEZ CIFUENTES Jun 10, 2021 12:18 CRISTY JACQUES DO Jun 11, 2021 05:39
--- NOTE | 2021-06-10 12:23 | Progress Note - Cardiology ---
Cardiology SOAP Progress Note Subjective: No cp or palp or syncope No shortness of breath at rest No n/v/d Gen malaise and weakness present Objective: I&O/Vital Signs 06/10/21 06/10/21 06/10/21 06/10/21 00:48 01:00 03:18 03:35 Temp 37.4 37.2 Pulse 87 71 74 65 Resp 17 18 B/P (MAP) 140/63 Pulse Ox 96 92 95 O2 Delivery NIV Bilevel O2 Flow Rate 35.00 35.00 06/10/21 06/10/21 06/10/21 06/10/21 07:15 08:00 08:00 10:12 Temp 37.2 Pulse 73 75 Resp 16 B/P (MAP) 121/56 Pulse Ox 96 94 96 O2 Delivery High Flow N/C High Flow N/C High Flow N/C O2 Flow Rate 6.00 8.00 8.00 06/10/21 10:16 O2 Delivery High Flow N/C O2 Flow Rate 6.00 06/10/21 00:00 Intake Total 1440 ml Output Total 300 ml Balance 1140 ml Constitutional: AAO x 3, well-developed, well-nourished, other (on BiPAP) Respiratory: No accessory muscle use, No respiratory distress; chest expansion is symmetric, chest is bilaterally symmetric, rhonchi (scattered), other (lung sounds course) Cardiovascular: irregularly irregular; No JVD; S1 and S2 Gastrointestional: No tender; round; No guarding; audible bowel sounds Extremities: other (mod bilat LE swelliing) Neurologic/Psychiatric: other (moves all limbs equally) Skin: normal color, warm/dry, other (abdominal scar from appendectomy) Results/Procedures: Labs Laboratory Tests 06/10/21 05:07: Prothrombin Time 22.7H, INR Comment 1.9H 06/10/21 06:32: White Blood Count 14.4H, Red Blood Count 3.08L, Hemoglobin 7.2L, Hematocrit 25L, Mean Corpuscular Volume 81, Mean Corpuscular Hemoglobin 23L, Mean Corpuscular Hemoglobin Concent 29L, Red Cell Distribution Width 17.9H, Platelet Count 367, Mean Platelet Volume 9.2, Immature Granulocyte % (Auto) 1, Neutrophils (%) (Auto) 89H, Lymphocytes (%) (Auto) 5L, Monocytes (%) (Auto) 5, Eosinophils (%) (Auto) 0, Basophils (%) (Auto) 0, Neutrophils # (Auto) 12.7H, Lymphocytes # (Auto) 0.7L, Monocytes # (Auto) 0.8, Eosinophils # (Auto) 0.1, Basophils # (Auto) 0.0, Immature Granulocyte # (Auto) 0.1, Neutrophils % (Manual) 85, Lymphocytes % (Manual) 7, Monocytes % (Manual) 8, Eosinophils % (Manual) 0, Basophils % (Manual) 0, Band Neutrophils 0, Polychromasia MODERATE, Hypochromasia MODERATE, Anisocytosis MODERATE, Sodium Level 134L, Potassium Level 3.8, Chloride Level 95L, Carbon Dioxide Level 27, Anion Gap 12, Blood Urea Nitrogen 19H, Creatinine 0.82, Estimat Glomerular Filtration Rate 90, BUN/Creatinine Ratio 23, Glucose Level 120H, Calcium Level 8.6, Corrected Calcium 9.2, Total Bilirubin 0.5, Aspartate Amino Transf (AST/SGOT) 20, Alanine Aminotransferase (ALT/SGPT) 32, Alkaline Phosphatase 72, Total Protein 6.6, Albumin 3.2 Microbiology 06/08/21 Gram Stain - Final, Resulted 06/08/21 Sputum Culture - Preliminary, Resulted Culture In Progress 06/08/21 Blood Culture - Preliminary, Resulted No growth A/P: Assessment: Sinus node dysfunction: A Fib with a slow vent response alternating with sinus rhythm with trifascicular block - HR improved following cessation of Amiodarone, Dig and Coreg Anemia - undetermined etiology, GI bleed suspected - management per Dr Boudreaux Acute diastolic CHF - Echo of 06/08/21: LVEF 55-65%, dilated atria, mild to mod conc LVH, PASP 40-45 mmHg - diuretics today and echocardiogram Pneumonia - management per medical services CAD - h/o CABG [address] Green at [facility] in [place], [place] PAF - OAC with warfarin - currently being held - Sub-therapeutic INR - being held PAD - reports h/o bilat fem-pop (which he reports both have failed) - managed by Dr. Green at [facility] in [place], [place] HTN HLD Abnormal ECG. ECG of 06/07/21: A Fib with a relatively slow vent response, RBBB, LAFB Plan: Continue to hold amiodarone + digoxin + carvedilol because they may be the reason for his bradycardia. Continue to monitor closely H/H lower today OAC with warfarin being held at this time - advise source of bleeding be determined and treated so that OAC may be resumed for stroke prophylaxis YASH. I communicated with Dr Boudreaux on this today. Ok to proceed with endoscopy, from cardiac standpoint Pneumonia - management per Medical services Monitor lab closely CB CONTRERAS MD FACP FAC CCDS Jun 10, 2021 12:23
[2021-06-10] MEDS ORDERED: LACTATED RINGERS 1,000 ML IV ONE (13:12)
[2021-06-10] MEDS ORDERED: LACTATED RINGERS 1,000 ML IV PRN (13:15)
[2021-06-10] MEDS ORDERED: proPOfol 200 MG/20 ML (DIPRIVAN) VIAL IV ONE (13:44)
[2021-06-10 14:10] VITALS: BP 129/62
--- NOTE | 2021-06-10 14:10 | Anesthesia-General Post-Op ---
MAC Patient Condition Mental Status/LOC: Same as Preop Cardiovascular: Satisfactory Nausea/Vomiting: Absent Respiratory: Satisfactory Pain: Controlled Complications: Absent Post Op Complications Complications None Follow Up Care/Instructions Patient Instructions None needed. Anesthesiology Discharge Order Discharge Order Patient is doing well, no complaints, stable vital signs, no apparent adverse anesthesia problems. No complications reported per nursing. ORTIZ HIGGINBOTHAM CRNA Jun 10, 2021 14:10
[2021-06-10 14:15] VITALS: BP 149/63
[2021-06-10] MEDS ORDERED: SALINE NASAL SPRAY (OCEAN) 45 ML BTL PRN (15:15)
--- NOTE | 2021-06-10 16:33 | Progress Note-Post Operative ---
Post-Operative Progess Note Surgeon (s)/Survey Technician (s) Surgeon ANTONINA AU DO Survey Technician: none Pre-Operative Diagnosis anemia Post-Operative Diagnosis Hiatal Hernia Duodenal Diverticula Tortuous distal Esophagus Procedure & Operative Findings Date of Procedure 06/10/21 Procedure Performed/Findings EGD PROCEDURE NOTE: After informed consent was obtained, the patient was brought to the endoscopy suite, placed in bed in left lateral decubitus position. He was administered IV sedation by the CORK MOLDER who then monitored vitals the entire time, heart rate, blood pressure and pulse ox and the scope was inserted down the mouth through the esophagus into the stomach. On the way down, noted a very tortuous distal esophagus, took a picture. Pushed into the stomach and past the antrum into the duodenum. Duodenum looked good, but did see a large diverticula and took a picture of this. Pulled back and noted the antrum looked good on inflammation and therefore did not do a biopsy. Then retroflexed the scope, saw hiatal hernia, took a picture of this and then pulled the scope into the GE junction, took another picture of the hiatal hernia and noted some changes of the GE junction; probably secondary to excess acid. Pushed the scope back into the stomach, suctioned all the air out of the stomach. At this point pulled the scope up the esophagus and out the mouth. The patient tolerated the procedure, and he recovered in endoscopy suite. Anesthesia Type IV sedation by CORK MOLDER Estimated Blood Loss Estimated blood loss (mL): none Specimens/Packing Specimens Removed none ANTONINA AU DO Jun 10, 2021 16:33
[2021-06-10] MEDS: DOXYCYCLINE 100 MG (VIBRAMYCIN) TABLET PO SCH (17:14)
[2021-06-10] MEDS: LOSARTAN 100 MG (COZAAR) TABLET PO SCH (20:45)
[2021-06-10] MEDS: ASPIRIN E.C. 81 MG (ECOTRIN) TAB PO SCH (20:45)
[2021-06-11] MEDS: RT-ALBUTEROL/IPRATROPIUM 3 ML (DUONEB) VIAL INH SCH ×2 (02:57→08:12)
[2021-06-11] MEDS: CEFEPIME INJECTION 1,000 MG in NS (IVPB) 50 ML IV SCH ×2 (05:35→11:09)
[2021-06-11 05:54] LABS: BASOPHILS % (AUTO) 0 % (0-10); EOSINOPHILS % (AUTO) 0 % (0-10); HEMATOCRIT 27 % (40-54); HEMOGLOBIN 7.7 g/dL (13.3-17.7); LYMPHOCYTES # (AUTO) 0.6 10^3/uL (1.0-4.0); LYMPHOCYTES % (AUTO) 6 % (12-44); MEAN CORPUSCULAR HEMOGLOBIN 24 pg (25-34); MEAN CORPUSCULAR HGB CONC 29 g/dL (32-36); MEAN CORPUSCULAR VOLUME 81 fL (80-99); MEAN PLATELET VOLUME 9.4 fL (9.0-12.2); MONOCYTES # (AUTO) 0.6 10^3/uL (0.0-1.0); MONOCYTES % (AUTO) 7 % (0-12); NEUTROPHILS # (AUTO) 7.9 10^3/uL (1.8-7.8); NEUTROPHILS % (AUTO) 86 % (42-75); PLATELET COUNT 377 10^3/uL (130-400); WHITE BLOOD COUNT 9.1 10^3/uL (4.3-11.0)
[2021-06-11 06:10] LABS: INR 1.7 (0.8-1.4); PROTHROMBIN TIME PATIENT 20.4 SEC (12.2-14.7)
[2021-06-11 06:11] LABS: ALBUMIN 3.1 GM/DL (3.2-4.5); POTASSIUM 3.8 MMOL/L (3.6-5.0)
[2021-06-11] MEDS: DOXYCYCLINE 100 MG (VIBRAMYCIN) TABLET PO SCH (06:12)
[2021-06-11] MEDS: CYANOCOBALAMIN 1,000 MCG (VITAMIN B-12) TABLET PO SCH (06:12)
[2021-06-11 06:13] LABS: CALCIUM 8.7 MG/DL (8.5-10.1)
[2021-06-11 06:14] LABS: TOTAL PROTEIN 6.4 GM/DL (6.4-8.2)
[2021-06-11 06:16] LABS: BILIRUBIN,TOTAL 0.5 MG/DL (0.1-1.0)
[2021-06-11 06:17] LABS: CREATININE SERUM 0.88 MG/DL (0.60-1.30)
--- NOTE | 2021-06-11 06:20 | Progress Note ---
Subjective Date Seen by a Provider: Jun 11, 2021 Objective Exam Last Set of Vital Signs Vital Signs Date Time Temp Pulse Resp B/P (MAP) Pulse Ox O2 Delivery O2 Flow Rate FiO2 06/11/21 04:00 37.1 74 15 133/63 93 NIV Bilevel 35.00 06/09/21 04:00 35 Capillary Refill : Less Than 3 Seconds I&O Intake and Output 06/11/21 00:00 Intake Total 1320 ml Output Total 2100 ml Balance -780 ml Intake Oral 1320 ml Output Urine Total 2100 ml # Voids 2 # Bowel Movements 2 Results Lab Laboratory Tests 06/10/21 06:32: White Blood Count 14.4H, Red Blood Count 3.08L, Hemoglobin 7.2L, Hematocrit 25L, Mean Corpuscular Volume 81, Mean Corpuscular Hemoglobin 23L, Mean Corpuscular Hemoglobin Concent 29L, Red Cell Distribution Width 17.9H, Platelet Count 367, Mean Platelet Volume 9.2, Immature Granulocyte % (Auto) 1, Neutrophils (%) (Auto) 89H, Lymphocytes (%) (Auto) 5L, Monocytes (%) (Auto) 5, Eosinophils (%) (Auto) 0, Basophils (%) (Auto) 0, Neutrophils # (Auto) 12.7H, Lymphocytes # (Auto) 0.7L, Monocytes # (Auto) 0.8, Eosinophils # (Auto) 0.1, Basophils # (Auto) 0.0, Immature Granulocyte # (Auto) 0.1, Neutrophils % (Manual) 85, Lymphocytes % (Manual) 7, Monocytes % (Manual) 8, Eosinophils % (Manual) 0, Basophils % (Manual) 0, Band Neutrophils 0, Polychromasia MODERATE, Hypochromasia MODERATE, Anisocytosis MODERATE, Sodium Level 134L, Potassium Level 3.8, Chloride Level 95L, Carbon Dioxide Level 27, Anion Gap 12, Blood Urea Nitrogen 19H, Creatinine 0.82, Estimat Glomerular Filtration Rate 90, BUN/Creatinine Ratio 23, Glucose Level 120H, Calcium Level 8.6, Corrected Calcium 9.2, Total Bilirubin 0.5, Aspartate Amino Transf (AST/SGOT) 20, Alanine Aminotransferase (ALT/SGPT) 32, Alkaline Phosphatase 72, Total Protein 6.6, Albumin 3.2 06/10/21 11:45: Influenza Type A (RT-PCR) Not Detected, Influenza Type B (RT-PCR) Not Detected, SARS-CoV-2 RNA (RT-PCR) Not Detected 06/11/21 05:24: White Blood Count 9.1, Red Blood Count 3.27L, Hemoglobin 7.7L, Hematocrit 27L, Mean Corpuscular Volume 81, Mean Corpuscular Hemoglobin 24L, Mean Corpuscular Hemoglobin Concent 29L, Red Cell Distribution Width 18.3H, Platelet Count 377, Mean Platelet Volume 9.4, Immature Granulocyte % (Auto) 1, Neutrophils (%) (Auto) 86H, Lymphocytes (%) (Auto) 6L, Monocytes (%) (Auto) 7, Eosinophils (%) (Auto) 0, Basophils (%) (Auto) 0, Neutrophils # (Auto) 7.9H, Lymphocytes # (Auto) 0.6L, Monocytes # (Auto) 0.6, Eosinophils # (Auto) 0.0, Basophils # (Auto) 0.0, Immature Granulocyte # (Auto) 0.1, Sodium Level 134L, Potassium Level 3.8, Chloride Level 95L, Carbon Dioxide Level 27, Anion Gap 12, Blood Urea Nitrogen 24H, Creatinine 0.88, Estimat Glomerular Filtration Rate 88, BUN/Creatinine Ratio 27, Glucose Level 114H, Calcium Level 8.7, Corrected Calcium 9.4, Total Bilirubin 0.5, Aspartate Amino Transf (AST/SGOT) 21, Alkaline Phosphatase 78, Total Protein 6.4, Albumin 3.1L, Prothrombin Time 20.4H, INR Comment 1.7H Microbiology 06/08/21 Gram Stain - Final, Complete 06/08/21 Sputum Culture - Final, Complete Usual upper respiratory amanuel 06/08/21 Blood Culture - Preliminary, Resulted No growth Assessment/Plan Assessment/Plan Assess & Plan/Chief Complaint Monitor hemoglobin Decrease steroids EGD today Diagnosis/Problems Diagnosis/Problems (1) Respiratory failure (2) Hypercapnia (3) Respiratory acidosis (4) RILEY (obstructive sleep apnea) (5) CAD (coronary artery disease) (6) Hx of CABG (7) Obesity (8) Hypertension (9) Hyperlipidemia (10) Hypothyroidism (11) Chronic kidney disease (12) Warfarin anticoagulation (13) Transfusion of blood during current hospitalisation (14) Anemia Clinical Quality Measures DVT/VTE Risk/Contraindication: Contraindications-Pharm: Other *list below* Other: JOSE Freeman DO Jun 11, 2021 06:20
--- NOTE | 2021-06-11 07:52 | Progress Note - Surgery ---
GATO ZULETA 06/11/21 0752: Subjective Date Seen by a Provider: Jun 11, 2021 Time Seen by a Provider: 07:55 Subjective/Events-last exam Pt ambulating with physical therapy earlier this morning. He had one bowel movement yesterday evening from which they took a sample. He had another overnight. Both were dark brown, soft, and had no visible blood. Pt is in no pain other than some back pain from his cough. He is on a CLD. Denies SOB, CP, palpitations, and fever at this time. Review of Systems General: No Chills, No Malaise HEENT: No Head Aches, No Visual Changes Pulmonary: No Dyspnea; Cough Cardiovascular: No: Chest Pain, Palpitations Gastrointestinal: Diarrhea; No: Nausea, Vomiting, Abdominal Pain Genitourinary: No Dysuria; Frequency Musculoskeletal: No: neck pain, leg pain Neurological: No: Weakness, Change in speech Focused Exam Respiratory: No Accessory Muscle Use, No Respiratory Distress, Wheezing Cardiovascular: No Murmur, Irregularly Irregular Peripheral Pulses: 2+ Radial Pulses (R), 2+ Radial Pulses (L) Skin: normal color, warm/dry Objective Exam Vital Signs Date Time Temp Pulse Resp B/P (MAP) Pulse Ox O2 Delivery O2 Flow Rate FiO2 06/11/21 07:11 36.8 78 18 128/61 92 High Flow N/C 5.00 06/11/21 07:00 88 06/11/21 04:00 37.1 74 15 133/63 93 NIV Bilevel 35.00 06/11/21 02:57 57 13 97 35.00 06/11/21 01:00 68 06/11/21 00:00 37.0 74 15 135/64 94 NIV Bilevel 22.00 06/10/21 22:28 65 18 95 35.00 06/10/21 22:05 93 Nasal Cannula 5.00 06/10/21 22:04 93 Nasal Cannula 5.00 06/10/21 20:00 High Flow N/C 8.00 06/10/21 19:10 36.8 82 16 125/52 94 High Flow N/C 5.00 06/10/21 19:00 81 06/10/21 15:53 92 High Flow N/C 5.00 06/10/21 15:19 36.8 77 16 136/69 95 High Flow N/C 5.00 06/10/21 14:15 72 16 95 Nasal Cannula 6 06/10/21 14:10 70 19 98 OxyMask 06/10/21 13:06 77 06/10/21 12:00 37.0 78 20 127/58 90 High Flow N/C 8.00 06/10/21 10:16 High Flow N/C 6.00 06/10/21 10:12 96 High Flow N/C 8.00 06/10/21 08:00 37.2 75 16 121/56 94 High Flow N/C 8.00 06/10/21 08:00 96 High Flow N/C 6.00 I & O 06/11/21 07:00 Intake Total 1420 ml Output Total 1500 ml Balance -80 ml Capillary Refill : Less Than 3 Seconds General Appearance: Chronically ill, Obese HEENT: PERRL/EOMI; No Photophobia Neck: Normal Inspection, Supple Respiratory: No Accessory Muscle Use, No Respiratory Distress, Wheezing Cardiovascular: No Murmur, Irregularly Irregular Peripheral Pulses: 2+ Radial Pulses (R), 2+ Radial Pulses (L) Gastrointestinal: non tender, soft, no organomegaly Extremity: Normal Inspection, Pedal Edema Neurologic/Psychiatric: Alert, Oriented x3, Normal Mood/Affect Skin: Normal Color, Warm/Dry, Other (abdominal scar from appendectomy; knee scar from surgery) Results Lab Laboratory Tests 06/10/21 11:45: Influenza Type A (RT-PCR) Not Detected, Influenza Type B (RT-PCR) Not Detected, SARS-CoV-2 RNA (RT-PCR) Not Detected 06/11/21 05:24: White Blood Count 9.1, Red Blood Count 3.27L, Hemoglobin 7.7L, Hematocrit 27L, Mean Corpuscular Volume 81, Mean Corpuscular Hemoglobin 24L, Mean Corpuscular Hemoglobin Concent 29L, Red Cell Distribution Width 18.3H, Platelet Count 377, Mean Platelet Volume 9.4, Immature Granulocyte % (Auto) 1, Neutrophils (%) (Auto) 86H, Lymphocytes (%) (Auto) 6L, Monocytes (%) (Auto) 7, Eosinophils (%) (Auto) 0, Basophils (%) (Auto) 0, Neutrophils # (Auto) 7.9H, Lymphocytes # (Auto) 0.6L, Monocytes # (Auto) 0.6, Eosinophils # (Auto) 0.0, Basophils # (Auto) 0.0, Immature Granulocyte # (Auto) 0.1, Prothrombin Time 20.4H, INR Comment 1.7H, Sodium Level 134L, Potassium Level 3.8, Chloride Level 95L, Carbon Dioxide Level 27, Anion Gap 12, Blood Urea Nitrogen 24H, Creatinine 0.88, Estimat Glomerular Filtration Rate 88, BUN/Creatinine Ratio 27, Glucose Level 114H, Calcium Level 8.7, Corrected Calcium 9.4, Total Bilirubin 0.5, Aspartate Amino Transf (AST/SGOT) 21, Alanine Aminotransferase (ALT/SGPT) 29, Alkaline Phosphatase 78, Total Protein 6.4, Albumin 3.1L Microbiology 06/08/21 Gram Stain - Final, Complete 06/08/21 Sputum Culture - Final, Complete Usual upper respiratory amanuel 06/08/21 Blood Culture - Preliminary, Resulted No growth Assessment/Plan Assessment/Plan Assessment/Plan Anemia CAD HTN Abnormal Coagulopathy AFib Repeat CXR 06/09-- slight improvement bilateral perihilar infiltrates; cardiomegaly; central pulmonary venous congestion INR- 1.9 to 1.7 PT- now 20.4 from 22.7 WBC dec from 14.4 to 9.1 EGD-- hiatal hernia, duodenal diverticula, tortuous distal esophagus Continue Doxy and Cefepime Occult blood stool ordered Hgb inc (7.7 from 7.2) Cardiology would like his Coumadin restarted marla Cardiology has held his amiodarone, digoxin, and carvedilol from home Monitor labs and vitals Clinical Quality Measures DVT/VTE Risk/Contraindication: Contraindications-Pharm: Other *list below* Other: ANTONINA Choi DO 06/11/21 1231: Subjective Time Seen by a Provider: 09:41 Subjective/Events-last exam Pt seen and examined, no new complaints. He had a few BMs and they were all brown. Denies abdominal pain Review of Systems General: No Chills Pulmonary: No Dyspnea; Cough Cardiovascular: No: Chest Pain, Palpitations Gastrointestinal: Diarrhea; No: Nausea, Vomiting, Abdominal Pain Genitourinary: No Dysuria; Frequency Objective Exam General Appearance: Chronically ill, Obese HEENT: PERRL/EOMI Respiratory: No Accessory Muscle Use, No Respiratory Distress, Wheezing Cardiovascular: No Murmur, Irregularly Irregular Gastrointestinal: non tender, soft, no organomegaly Extremity: Pedal Edema Assessment/Plan Assessment/Plan Assessment/Plan Anemia EGD-- hiatal hernia, duodenal diverticula, tortuous distal esophagus CAD HTN Abnormal Coagulopathy AFib INR- 1.9 to 1.7 PT- now 20.4 from 22.7 WBC dec from 14.4 to 9.1 Continue Doxy and Cefepime Occult blood - negative Hgb inc (7.7 from 7.2) Cardiology would like his Coumadin restarted marla Cardiology has held his amiodarone, digoxin, and carvedilol from home Monitor labs and vitals Nothing seen during EGD to explain anemia, would plan colonoscopy as an outpt because his Hg has been stable the entire time. I will sign off and can resee if needed. Supervisory-Addendum Brief Verification & Attestation Participated in pt care: history, MDM, physical Personally performed: exam, history, MDM, supervision of care Care discussed with: Medical Student Procedures: n/a Verification and Attestation of Medical Student E/M Service A medical student performed and documented this service. I then reviewed and verified all information documented by the medical student and made modifications to such information, when appropriate. I personally performed a physical exam, medical decision making and then discussed any differences between the notes and made revisions as necessary to create one note. Antonina Childs , 06/11/21 , 12:32 GATO ZULETA Jun 11, 2021 07:52 ANTONINA CHILDS DO Jun 11, 2021 12:31
[2021-06-11] MEDS: RT-BUDESONIDE NEBS 0.5 MG/2ML (PULMICORT) AMP INH SCH (08:12)
--- NOTE | 2021-06-11 08:17 | Physical Therapy Daily Note ---
PT Daily Note-Current Subjective Patient presented sitting EOB and agreed to walk with physical therapy. Mental Status Patient Orientation: Person, Place, Time, Situation Attachments: Oxygen (5L NC) Transfers SCALE: Activities may be completed with or without assistive devices. 5-[id number]-[id number] completes the activity by him/herself with no assistance from a helper. 5-Set-up or Clean-up Assistance-helper sets up or cleans up; patient completes activity. [place] assists only prior to or following the activity. 4-Supervision or Touching Assistance-helper provides verbal cues and/or touching/steadying and/or contact guard assistance as patient completes activity. Assistance may be provided throughout the activity or intermittently. 3-Partial/Moderate Assistance-helper does LESS THAN HALF the effort. [place] lifts, holds or supports trunk or limbs, but provides less than half the effort. 2-Substantial/Maximal Assistance-helper does MORE THAN HALF the effort. [place] lifts or holds trunk or limbs and provides more than half the effort. 7-Kylflrrlu-huvdga does ALL the effort. Patient does none of the effort to complete the activity. Or, the assistance of 2 or more helpers is required for the patient to complete the activity. If activity was not attempted, code reason: 7-Patient Refused. 9-Not Applicable-not attempted and the patient did not perform the activity before the current illness, exacerbation or injury. 10-Not Attempted due to Environmental Limitations-(lack of equipment, weather restraints, etc.). 88-Not Attempted due to Medical Conditions or Safety Concerns. Sit to Stand (QC): 4 Patient requires SBA for transfers Gait Training Does the Patient Walk?: Yes Distance: 300' Walk 10 feet (QC): 4 Walk 50 ft with 2 Turns(QC): 4 Walk 150 ft (QC): 4 Gait Assistive Device: FWW Patient requires SBA for ambulation with FWW Assessment Patient ambulated 300' with therapy but required frequent rest breaks due to SOA. Patient took two extended rest breaks to catch his breath while walking. Patient reported SOA after returning to his room but recovered quickly. 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 Network Engineer Goals PT Intermediate Goals Time Frame: Jun 19, 2021 Roll Left & Right (QC): 6 Sit to Lying (QC): 6 Lying-Sitting on Side/Bed(QC): 6 Sit to Stand (QC): 6 Chair/Hyf-dx-Dictw Xfer(QC): 6 Toilet Transfer (QC): 6 Does the Patient Walk: Yes Walk 10 feet (QC): 6 Walk 50ft with 2 Turns (QC): 6 Walk 150 ft (QC): 6 1 Step (curb) (QC): 6 4 Steps (QC): 6 12 Steps (QC): 6 PT Plan Problem List Problem List: Activity Tolerance, Functional Strength, Safety, Balance, Gait, Transfer, Bed Mobility, ROM Treatment/Plan Treatment Plan: Continue Plan of Care Treatment Plan: Bed Mobility, Education, Functional Activity Dilip, Functional Strength, Gait, Safety, Therapeutic Exercise, Transfers Treatment Duration: Jun 19, 2021 Frequency: 6 times per week Estimated Hrs Per Day: .25 hour per day Patient and/or Family Agrees t: Yes Time/GCodes Time In: 745 Time Out: 802 Total Billed Treatment Time: 17 Total Billed Treatment 1 Visit FA 17 min DARRELL PENNINGTON PT Jun 11, 2021 08:16
[2021-06-11] MEDS: guaiFENesin (MUCINEX) 600 MG TAB PO SCH (08:28)
[2021-06-11] MEDS: SENNOSIDES 8.6 MG (SENOKOT) TAB PO SCH (08:29)
[2021-06-11] MEDS: LACTULOSE SYRUP 10GM/15ML (ENULOSE) 30ML UDC PO SCH (08:29)
[2021-06-11] MEDS: DOCUSATE SODIUM 100 MG (COLACE) CAP PO SCH (08:29)
[2021-06-11] MEDS: polyethylene glycoL POWDER 17 GM (MIRALAX) PACK PO SCH (08:29)
[2021-06-11] MEDS: IRON SUCROSE 200 MG/10 ML (VENOFER) VIAL IV SCH (08:29)
[2021-06-11] MEDS: LEVOTHYROXINE 25 MCG (LEVOTHROID) TAB PO SCH (08:31)
[2021-06-11] MEDS ORDERED: FUROSEMIDE 40 MG (LASIX) TAB PO SCH (09:00)
[2021-06-11] MEDS ORDERED: PANTOPRAZOLE 40 MG (PROTONIX) TAB PO SCH (09:00)
[2021-06-11] MEDS ORDERED: methylPREDNISolone 40 MG/ML (Solu-MEDROL) VIAL IV SCH (09:00)
[2021-06-11] MEDS ORDERED: ALPR.25T PO (12:35)
[2021-06-11] MEDS ORDERED: BUDE0.5A INH (12:35)
[2021-06-11] MEDS ORDERED: GUAI600T43 PO (12:35)
[2021-06-11] MEDS ORDERED: METH40VI2 IV (12:35)
[2021-06-11] MEDS ORDERED: FURO40TA4 PO (12:35)
[2021-06-11] MEDS ORDERED: CEFE1FRO IV (12:35)
[2021-06-11] MEDS ORDERED: IRON100V2 IV (12:35)
[2021-06-11] MEDS ORDERED: SODI44SP2 (12:35)
[2021-06-11] MEDS ORDERED: DOXY100T2 PO (12:35)
[2021-06-11] MEDS ORDERED: IPRA3AMP31 INH (12:35)
[2021-06-11] MEDS ORDERED: CYAN-41 PO (12:35)
[2021-06-11] MEDS ORDERED: PANT40TA52 PO (12:35)
--- NOTE | 2021-06-11 13:08 | Diagnostic Imaging Report ---
INDICATION: Back pain. Cough. COMPARISON: None. FINDINGS: Frontal and lateral radiographic views of the thoracic spine were obtained. The cervicothoracic junction is obscured by overlying osseous and soft tissue structures. Note is made of compression deformities of the T6 and T7 vertebral bodies. These are age-indeterminate. Mild multilevel degenerative changes are also noted. The included portions of the lungs show extensive interstitial infiltrate. IMPRESSION: Age-indeterminate compression deformities of T6 and T7. Correlation with point tenderness is recommended. If there is concern for acute fracture, MRI is recommended. Dictated by: Dictated on workstation # [id number]
[2021-06-11] MEDS ORDERED: APIX5TAB PO (13:38)
--- NOTE | 2021-06-11 13:39 | Discharge Summary ---
Diagnosis/Chief Complaint Date of Admission Jun 07, 2021 at 16:26 Date of Discharge Discharge Date: Jun 11, 2021 Discharge Diagnosis Assessment: Acute hypoxic hypercapnic respiratory failure requiring BiPAP Volume overload with pulmonary congestion on chest x-ray Bilateral pneumonia high risk for resistant organisms placed on cefepime and doxy Severe anemia hemoglobin 5.8 at [place] [facility] status post 2 units of blood with iron infusions Coagulopathy from Coumadin 4.1 INR now resolved and will start on Eliquis long- term Atrial fibrillation not requiring amiodarone or digoxin due to bradycardia on admit CAD previous bypass Suspicion for RILEY Hypothyroidism Hypertension Hyperlipidemia Chronic kidney disease Thoracic spine pain x-ray reveals T6-T7 compression fracture likely 1 week old Plan: ICU Transfuse Cardiology consult eICU consult Dr. Childs consult Monitor hemoglobin Lasix Gentle IV fluid BiPAP Discharge Summary Discharge Physical Examination Allergies: Coded Allergies: No Known Drug Allergies (Unverified , 07/14/10) Vitals & I&Os Vital Signs Date Time Temp Pulse Resp B/P (MAP) Pulse Ox O2 Delivery O2 Flow Rate FiO2 06/11/21 12:56 78 06/11/21 11:15 37.0 18 135/70 90 High Flow N/C 5.00 06/09/21 04:00 35 General Appearance: Alert, Oriented X3, Cooperative Respiratory: Clear to Auscultation Cardiovascular: Regular Rate Neuro: Normal Gait, Normal Speech, Strength at 5/5 X4 Ext Psych/Mental Status: Mental Status NL Hospital Course Was the Problem List Reviewed?: Yes Patient had a lengthy and complex hospital course. He was admitted from [facility] due to congestive heart failure severe anemia with hemoglobin of 5.8 and acute hypoxic respiratory failure requiring BiPAP and ICU with cardiology care with eICU pulmonary consult. Lasix was given by cardiology and held most of his cardiac meds which include digoxin, amiodarone, amlodipine, losartan, isosorbide. Echocardiogram revealed preserved systolic function with PAP of 45. Untreated and undiagnosed sleep apnea was suspected. BiPAP was tolerated very well. ABGs improved. Chest x-ray appeared worse and procalcitonin was elevated so he was started on cefepime and doxycycline. Severe anemia requiring consultation with Dr. Childs and 2 units of blood and ultimately required EGD with stable showing no source of bleeding. INR decreased naturally without the addition of any vitamin K. Decision was made to switch over to Eliquis on Saturday after he is settled in and hemoglobin is noted to be stable and doing well on swing bed at [facility] to focus on therapy and wean oxygen. Bowel function returned back to normal patient was eating and drinking well. Overall he will require a few days of recovery. Labs (last 24 hrs) Laboratory Tests 06/07/21 16:40: White Blood Count 10.0, Red Blood Count 2.69L, Hemoglobin 6.1*L, Hematocrit 22L, Mean Corpuscular Volume 81, Mean Corpuscular Hemoglobin 23L, Mean Corpuscular Hemoglobin Concent 28L, Red Cell Distribution Width 17.6H, Platelet Count 351, Mean Platelet Volume 8.7L, Immature Granulocyte % (Auto) 0, Neutrophils (%) (Auto) 76H, Lymphocytes (%) (Auto) 13, Monocytes (%) (Auto) 10, Eosinophils (%) (Auto) 0, Basophils (%) (Auto) 0, Neutrophils # (Auto) 7.6, Lymphocytes # (Auto) 1.3, Monocytes # (Auto) 1.0, Eosinophils # (Auto) 0.0, Basophils # (Auto) 0.0, Immature Granulocyte # (Auto) 0.0, Prothrombin Time 38.9H, INR Comment 3.9H, Sodium Level 134L, Potassium Level 3.9, Chloride Level 98, Carbon Dioxide Level 24, Anion Gap 12, Blood Urea Nitrogen 28H, Creatinine 1.16, Estimat Glomerular Filtration Rate 64, BUN/Creatinine Ratio 24, Glucose Level 102, Calcium Level 8.8, Corrected Calcium 9.1, Total Bilirubin 0.4, Aspartate Amino Transf (AST/SGOT) 31, Alanine Aminotransferase (ALT/SGPT) 31, Alkaline Phosphatase 96, Total Protein 7.2, Albumin 3.6 06/07/21 18:00: Stool Occult Blood Immunoassay NEGATIVE 06/07/21 19:33: Blood Gas Puncture Site L RADIAL, Blood Gas Patient Temperature 36.6, Arterial Blood pH 7.36L, Arterial Blood Partial Pressure CO2 50H, Arterial Blood Partial Pressure O2 55L, Arterial Blood HCO3 27, Arterial Blood Total CO2 28.9, Arterial Blood Oxygen Saturation 89L, Arterial Blood Base Excess 2.3, Marlo Test YES-POS, Blood Gas Ventilator Setting NO, Blood Gas Inspired Oxygen 9L 06/07/21 19:44: Influenza Type A (RT-PCR) Not Detected, Influenza Type B (RT-PCR) Not Detected, SARS-CoV-2 RNA (RT-PCR) Not Detected 06/08/21 01:30: Hemoglobin 6.8*L, Hematocrit 24L 06/08/21 06:00: Hemoglobin 7.5L, Hematocrit 25L, White Blood Count 11.7H, Red Blood Count 3.16L, Mean Corpuscular Volume 80, Mean Corpuscular Hemoglobin 24L, Mean Corpuscular Hemoglobin Concent 30L, Red Cell Distribution Width 16.9H, Platelet Count 353, Mean Platelet Volume 9.3, Immature Granulocyte % (Auto) 1, Neutrophils (%) (Auto) 81H, Lymphocytes (%) (Auto) 9L, Monocytes (%) (Auto) 10, Eosinophils (%) (Auto) 0, Basophils (%) (Auto) 0, Neutrophils # (Auto) 9.4H, Lymphocytes # (Auto) 1.0, Monocytes # (Auto) 1.1H, Eosinophils # (Auto) 0.0, Basophils # (Auto) 0.0, Immature Granulocyte # (Auto) 0.1, Prothrombin Time 33.8H, INR Comment 3.3H, Sodium Level 134L, Potassium Level 3.9, Chloride Level 98, Carbon Dioxide Level 24, Anion Gap 12, Blood Urea Nitrogen 22H, Creatinine 1.08, Estimat Glomerular Filtration Rate 70, BUN/Creatinine Ratio 20, Glucose Level 116H, Lactic Acid Level 1.11, Calcium Level 8.7, Corrected Calcium 9.1, Phosphorus Level 3.4, Magnesium Level 2.1, Total Bilirubin 0.7, Aspartate Amino Transf (AST/SGOT) 32, Alanine Aminotransferase (ALT/SGPT) 36, Alkaline Phos phatase 96, Total Protein 7.1, Albumin 3.5, Procalcitonin 1.56H, Digoxin Level 0.69L 06/08/21 07:35: Blood Gas Puncture Site RT RAD, Blood Gas Patient Temperature 36.3, Arterial Blood pH 7.40, Arterial Blood Partial Pressure CO2 46H, Arterial Blood Partial Pressure O2 58L, Arterial Blood HCO3 28H, Arterial Blood Total CO2 29.6, Arterial Blood Oxygen Saturation 91L, Arterial Blood Base Excess 3.6H, Marlo Test YES-POS, Blood Gas Ventilator Setting NO, Blood Gas Inspired Oxygen 45% 06/08/21 11:32: Urine Color YELLOW, Urine Clarity CLEAR, Urine pH 6.0, Urine Specific [place] 1.015L, Urine Protein NEGATIVE, Urine Glucose (UA) NEGATIVE, Urine Ketones NEGATIVE, Urine Nitrite NEGATIVE, Urine Bilirubin NEGATIVE, Urine Urobilinogen 0.2, Urine Leukocyte Esterase NEGATIVE, Urine RBC (Auto) NEGATIVE, Urine RBC NONE, Urine WBC NONE, Urine Squamous Epithelial Cells NONE, Urine Crystals NONE, Urine Bacteria NEGATIVE, Urine Casts NONE, Urine Mucus NEGATIVE, Urine Culture Indicated NO 06/08/21 13:53: Potassium Level 3.5L, Magnesium Level 1.8, Troponin I < 0.028 06/09/21 03:05: Potassium Level 4.0, Magnesium Level 2.1, White Blood Count 8.9, Red Blood Count 3.31L, Hemoglobin 7.8L, Hematocrit 27L, Mean Corpuscular Volume 81, Mean Isidro uscular Hemoglobin 24L, Mean Corpuscular Hemoglobin Concent 29L, Red Cell Distribution Width 17.4H, Platelet Count 377, Mean Platelet Volume 9.2, Immature Granulocyte % (Auto) 0, Neutrophils (%) (Auto) 90H, Lymphocytes (%) (Auto) 6L, Monocytes (%) (Auto) 3, Eosinophils (%) (Auto) 1, Basophils (%) (Auto) 0, Neutrophils # (Auto) 8.0H, Lymphocytes # (Auto) 0.5L, Monocytes # (Auto) 0.2, Eosinophils # (Auto) 0.1, Basophils # (Auto) 0.0, Immature Granulocyte # (Auto) 0.0, Neutrophils % (Manual) 93, Lymphocytes % (Manual) 6, Monocytes % (Manual) 1, Nucleated Red Blood Cells 1, Polychromasia SLIGHT, Hypochromasia MODERATE, Microcytosis MODERATE, Sodium Level 136, Chloride Level 97L, Carbon Dioxide Level 25, Anion Gap 14, Blood Urea Nitrogen 18, Creatinine 0.87, Estimat Glomerular Filtration Rate 88, BUN/Creatinine Ratio 21, Glucose Level 125H, Calcium Level 8.6, Corrected Calcium 9.0, Phosphorus Level 4.0, Iron Level 13L, Total Bilirubin 0.5, Aspartate Amino Transf (AST/SGOT) 30, Alanine Aminotransferase (ALT/SGPT) 38, Alkaline Phosphatase 87, Total Protein 7.3, Albumin 3.5, Vitamin B12 Level 582, Thyroid Stimulating Hormone (TSH) 1.03 06/09/21 05:05: Prothrombin Time 25.9H, INR Comment 2.3H 06/09/21 08:00: Blood Gas Puncture Site LT RAD, Blood Gas Patient Temperature 37.1, Arterial Blood pH 7.47H, Arterial Blood Partial Pressure CO2 45, Arterial Blood Partial Pressure O2 70L, Arterial Blood HCO3 32H, Arterial Blood Total CO2 33.1H, Arterial Blood Oxygen Saturation 95, Arterial Blood Base Excess 7.8H, Marlo Test YES-POS, Blood Gas Ventilator Setting NO, Blood Gas Inspired Oxygen 35% 06/10/21 05:07: Prothrombin Time 22.7H, INR Comment 1.9H 06/10/21 06:32: White Blood Count 14.4H, Red Blood Count 3.08L, Hemoglobin 7.2L, Hematocrit 25L, Mean Corpuscular Volume 81, Mean Corpuscular Hemoglobin 23L, Mean Corpuscular Hemoglobin Concent 29L, Red Cell Distribution Width 17.9H, Platelet Count 367, Mean Platelet Volume 9.2, Immature Granulocyte % (Auto) 1, Neutrophils (%) (Auto) 89H, Lymphocytes (%) (Auto) 5L, Monocytes (%) (Auto) 5, Eosinophils (%) (Auto) 0, Basophils (%) (Auto) 0, Neutrophils # (Auto) 12.7H, Lymphocytes # (Auto) 0.7L, Monocytes # (Auto) 0.8, Eosinophils # (Auto) 0.1, Basophils # (Aut o) 0.0, Immature Granulocyte # (Auto) 0.1, Neutrophils % (Manual) 85, Lymphocytes % (Manual) 7, Monocytes % (Manual) 8, Eosinophils % (Manual) 0, Basophils % (Manual) 0, Band Neutrophils 0, Polychromasia MODERATE, Hypochromasia MODERATE, Anisocytosis MODERATE, Sodium Level 134L, Potassium Level 3.8, Chloride Level 95L, Carbon Dioxide Level 27, Anion Gap 12, Blood Urea Nitrogen 19H, Creatinine 0.82, Estimat Glomerular Filtration Rate 90, BUN/Crea tinine Ratio 23, Glucose Level 120H, Calcium Level 8.6, Corrected Calcium 9.2, Total Bilirubin 0.5, Aspartate Amino Transf (AST/SGOT) 20, Alanine Aminotransferase (ALT/SGPT) 32, Alkaline Phosphatase 72, Total Protein 6.6, Albumin 3.2 06/10/21 11:45: Influenza Type A (RT-PCR) Not Detected, Influenza Type B (RT-PCR) Not Detected, SARS-CoV-2 RNA (RT-PCR) Not Detected 06/11/21 05:24: Prothrombin Time 20.4H, INR Comment 1.7H, White Blood Count 9.1, Red Blood Count 3.27L, Hemoglobin 7.7L, Hematocrit 27L, Mean Corpuscular Volume 81, Mean Corpuscular Hemoglobin 24L, Mean Corpuscular Hemoglobin Concent 29L, Red Cell Distribution Width 18.3H, Platelet Count 377, Mean Platelet Volume 9.4, Immature Granulocyte % (Auto) 1, Neutrophils (%) (Auto) 86H, Lymphocytes (%) (Auto) 6L, Monocytes (%) (Auto) 7, Eosinophils (%) (Auto) 0, Basophils (%) (Auto) 0, Neutrophils # (Auto) 7.9H, Lymphocytes # (Auto) 0.6L, Monocytes # (Auto) 0.6, Eosinophils # (Auto) 0.0, Basophils # (Auto) 0.0, Immature Granulocyte # (Auto) 0.1, Sodium Level 134L, Potassium Level 3.8, Chloride Level 95L, Carbon Dioxide Level 27, Anion Gap 12, Blood Urea Nitrogen 24H, Creatinine 0.88, Estimat Glomerular Filtration Rate 88, BUN/Creatinine Ratio 27, Glucose Level 114H, Calcium Level 8.7, Corrected Calcium 9.4, Total Bilirubin 0.5, Aspartate Amino Transf (AST/SGOT) 21, Alanine Aminotransferase (ALT/SGPT) 29, Alkaline Phosphatase 78, Total Protein 6.4, Albumin 3.1L Microbiology 06/08/21 Gram Stain - Final, Complete 06/08/21 Sputum Culture - Final, Complete Usual upper respiratory amanuel 06/08/21 Blood Culture - Preliminary, Resulted No growth Pending Labs Microbiology Date/Time Source Procedure Growth Status 06/08/21 10:30 Sputum Expectorated Gram Stain - Final Complete 06/08/21 10:30 Sputum Culture - Final Usual upper respiratory amanuel Complete 06/08/21 09:53 Peripheral Lt Ac Blood Culture - Preliminary No growth Resulted 06/08/21 09:53 Peripheral Rt Hand Blood Culture - Preliminary No growth Resulted 06/07/21 17:11 Nasal MRSA Screen - Final MRSA not isolated Complete Laboratory Tests 06/07/21 16:40: White Blood Count 10.0, Red Blood Count 2.69, Hemoglobin 6.1, Hematocrit 22, Mean Corpuscular Volume 81, Mean Corpuscular Hemoglobin 23, Mean Corpuscular Hemoglobin Concent 28, Red Cell Distribution Width 17.6, Platelet Count 351, Mean Platelet Volume 8.7, Immature Granulocyte % (Auto) 0, Neutrophils (%) (Auto) 76, Lymphocytes (%) (Auto) 13, Monocytes (%) (Auto) 10, Eosinophils (%) (Auto) 0, Basophils (%) (Auto) 0, Neutrophils # (Auto) 7.6, Lymphocytes # (Auto) 1.3, Monocytes # (Auto) 1.0, Eosinophils # (Auto) 0.0, Basophils # (Auto) 0.0, Immature Granulocyte # (Auto) 0.0, Prothrombin Time 38.9, INR Comment 3.9, Sodium Level 134, Potassium Level 3.9, Chloride Level 98, Carbon Dioxide Level 24, Anion Gap 12, Blood Urea Nitrogen 28, Creatinine 1.16, Estimat Glomerular Filtration Rate 64, BUN/Creatinine Ratio 24, Glucose Level 102, Calcium Level 8 .8, Corrected Calcium 9.1, Total Bilirubin 0.4, Aspartate Amino Transf (AST/SGOT) 31, Alanine Aminotransferase (ALT/SGPT) 31, Alkaline Phosphatase 96, Total Protein 7.2, Albumin 3.6 06/07/21 18:00: Stool Occult Blood Immunoassay NEGATIVE 06/07/21 19:33: Blood Gas Puncture Site L RADIAL, Blood Gas Patient Temperature 36.6, Arterial Blood pH 7.36, Arterial Blood Partial Pressure CO2 50, Arterial Blood Partial Pressure O2 55, Arterial Blood HCO3 27, Arterial Blood Total CO2 28.9, Arterial Blood Oxygen Saturation 89, Arterial Blood Base Excess 2.3, Marlo Test YES-POS, Blood Gas Ventilator Setting NO, Blood Gas Inspired Oxygen 9L 06/07/21 19:44: Influenza Type A (RT-PCR) Not Detected, Influenza Type B (RT-PCR) Not Detected, SARS-CoV-2 RNA (RT-PCR) Not Detected 06/08/21 01:30: Hemoglobin 6.8, Hematocrit 24 06/08/21 06:00: Hemoglobin 7.5, Hematocrit 25, White Blood Count 11.7, Red Blood Count 3.16, Mean Corpuscular Volume 80, Mean Corpuscular Hemoglobin 24, Mean Corpuscular Hemoglobin Concent 30, Red Cell Distribution Width 16.9, Platelet Count 353, Mean Platelet Volume 9.3, Immature Granulocyte % (Auto) 1, Neutrophils (%) (Auto) 81, Lymphocytes (%) (Auto) 9, Monocytes (%) (Auto) 10, Eosinophils (%) (Auto) 0, Basophils (%) (Auto) 0, Neutrophils # (Auto) 9.4, Lymphocytes # (Auto) 1.0, Monocytes # (Auto) 1.1, Eosinophils # (Auto) 0.0, Basophils # (Auto) 0.0, Immature Granulocyte # (Auto) 0.1, Prothrombin Time 33.8, INR Comment 3.3, Sodium Level 134, Potassium Level 3.9, Chloride Level 98, Carbon Dioxide Level 24, Anion Gap 12, Blood Urea Nitrogen 22, Creatinine 1.08, Estimat Glomerular Filtration Rate 70, BUN/Creatinine Ratio 20, Glucose Level 116, Lactic Acid Level 1.11, Calcium Level 8.7, Corrected Calcium 9.1, Phosphorus Level 3.4, Magnesium Level 2.1, Total Bilirubin 0.7, Aspartate Amino Transf (AST/SGOT) 32, Alanine Aminotransferase (ALT/SGPT) 36, Alkaline Phosphatase 96, Total Protein 7.1, Albumin 3.5, Procalcitonin 1.56, Digoxin Level 0.69 06/08/21 07:35: Blood Gas Puncture Site RT RAD, Blood Gas Patient Temperature 36.3, Arterial Blood pH 7.40, Arterial Blood Partial Pressure CO2 46, Arterial Blood Partial Pressure O2 58, Arterial Blood HCO3 28, Arterial Blood Total CO2 29.6, Arterial Blood Oxygen Saturation 91, Arterial Blood Base Excess 3.6, Marlo Test YES-POS, Blood Gas Ventilator Setting NO, Blood Gas Inspired Oxygen 45% 06/08/21 11:32: Urine Color YELLOW, Urine Clarity CLEAR, Urine pH 6.0, Urine Specific [place] 1.015, Urine Protein NEGATIVE, Urine Glucose (UA) NEGATIVE, Urine Ketones NEGATIVE, Urine Nitrite NEGATIVE, Urine Bilirubin NEGATIVE, Urine Urobilinogen 0.2, Urine Leukocyte Esterase NEGATIVE, Urine RBC (Auto) NEGATIVE, Urine RBC NONE, Urine WBC NONE, Urine Squamous Epithelial Cells NONE, Urine Crystals NONE, Urine Bacteria NEGATIVE, Urine Casts NONE, Urine Mucus NEGATIVE, Urine Culture Indicated NO 06/08/21 13:53: Potassium Level 3.5, Magnesium Level 1.8, Troponin I < 0.028 06/09/21 03:05: Potassium Level 4.0, Magnesium Level 2.1, White Blood Count 8.9, Red Blood Count 3.31, Hemoglobin 7.8, Hematocrit 27, Mean Corpuscular Volume 81, Mean Corpuscular Hemoglobin 24, Mean Corpuscular Hemoglobin Concent 29, Red Cell Distribution Width 17.4, Platelet Count 377, Mean Platelet Volume 9.2, Immature Granulocyte % (Auto) 0, Neutrophils (%) (Auto) 90, Lymphocytes (%) (Auto) 6, Monocytes (%) (Auto) 3, Eosinophils (%) (Auto) 1, Basophils (%) (Auto) 0, Neutrophils # (Auto) 8.0, Lymphocytes # (Auto) 0.5, Monocytes # (Auto) 0.2, Eosinophils # (Auto) 0.1, Basophils # (Auto) 0.0, Immature Granulocyte # (Auto) 0.0, Neutrophils % (Manual) 93, Lymphocytes % (Manual) 6, Monocytes % (Manual) 1, Nucleated Red Blood Cells 1, Polychromasia SLIGHT, Hypochromasia MODERATE, Microcytosis MODERATE, Sodium Level 136, Chloride Level 97, Carbon Dioxide Level 25, Anion Gap 14, Blood Urea Nitrogen 18, Creatinine 0.87, Estimat Glomerular Filtration Rate 88, BUN/Creatinine Ratio 21, Glucose Level 125, Calcium Level 8.6, Corrected Calcium 9.0, Phosphorus Level 4.0, Iron Level 13, Total Bilirubin 0.5, Aspartate Amino Transf (AST/SGOT) 30, Alanine Aminotransferase (ALT/SGPT) 38, Alkaline Phosphatase 87, Total Protein 7.3, Albumin 3.5, Vitamin B12 Level 582, Thyroid Stimulating Hormone (TSH) 1.03 06/09/21 05:05: Prothrombin Time 25.9, INR Comment 2.3 06/09/21 08:00: Blood Gas Puncture Site LT RAD, Blood Gas Patient Temperature 37.1, Arterial Blood pH 7.47, Arterial Blood Partial Pressure CO2 45, Arterial Blood Partial Pressure O2 70, Arterial Blood HCO3 32, Arterial Blood Total CO2 33.1, Arterial Blood Oxygen Saturation 95, Arterial Blood Base Excess 7.8, Marlo Test YES-POS, Blood Gas Ventilator Setting NO, Blood Gas Inspired Oxygen 35% 06/10/21 05:07: Prothrombin Time 22.7, INR Comment 1.9 06/10/21 06:32: White Blood Count 14.4, Red Blood Count 3.08, Hemoglobin 7.2, Hematocrit 25, Mean Corpuscular Volume 81, Mean Corpuscular Hemoglobin 23, Mean Corpuscular Hemoglobin Concent 29, Red Cell Distribution Width 17.9, Platelet Count 367, Mean Platelet Volume 9.2, Immature Granulocyte % (Auto) 1, Neutrophils (%) (Auto) 89, Lymphocytes (%) (Auto) 5, Monocytes (%) (Auto) 5, Eosinophils (%) (Auto) 0, Basophils (%) (Auto) 0, Neutrophils # (Auto) 12.7, Lymphocytes # (Auto) 0.7, Monocytes # (Auto) 0.8, Eosinophils # (Auto) 0.1, Basophils # (Auto) 0.0, Immature Granulocyte # (Auto) 0.1, Neutrophils % (Manual) 85, Lymphocytes % (Manual) 7, Monocytes % (Manual) 8, Eosinophils % (Manual) 0, Basophils % (Manual) 0, Band Neutrophils 0, Polychromasia MODERATE, Hypochromasia MODERATE, Anisocytosis MODERATE, Sodium Level 134, Potassium Level 3.8, Chloride Level 95, Carbon Dioxide Level 27, Anion Gap 12, Blood Urea Nitrogen 19, Creatinine 0.82, Estimat Glomerular Filtration Rate 90, BUN/Creatinine Ratio 23, Glucose Level 120, Calcium Level 8.6, Corrected Calcium 9.2, Total Bilirubin 0.5, Aspartate Amino Transf (AST/SGOT) 20, Alanine Aminotransferase (ALT/SGPT) 32, Alkaline Phosphatase 72, Total Protein 6.6, Albumin 3.2 06/10/21 11:45: Influenza Type A (RT-PCR) Not Detected, Influenza Type B (RT-PCR) Not Detected, SARS-CoV-2 RNA (RT-PCR) Not Detected 06/11/21 05:24: Prothrombin Time 20.4, INR Comment 1.7, White Blood Count 9.1, Red Blood Count 3.27, Hemoglobin 7.7, Hematocrit 27, Mean Corpuscular Volume 81, Mean Corpuscular Hemoglobin 24, Mean Corpuscular Hemoglobin Concent 29, Red Cell Distribution Width 18.3, Platelet Count 377, Mean Platelet Volume 9.4, Immature Granulocyte % (Auto) 1, Neutrophils (%) (Auto) 86, Lymphocytes (%) (Auto) 6, Monocytes (%) (Auto) 7, Eosinophils (%) (Auto) 0, Basophils (%) (Auto) 0, Neutrophils # (Auto) 7.9, Lymphocytes # (Auto) 0.6, Monocytes # (Auto) 0.6, Eosinophils # (Auto) 0.0, Basophils # (Auto) 0.0, Immature Granulocyte # (Auto) 0.1, Sodium Level 134, Potassium Level 3.8, Chloride Level 95, Carbon Dioxide Level 27, Anion Gap 12, Blood Urea Nitrogen 24, Creatinine 0.88, Estimat Glomerular Filtration Rate 88, BUN/Creatinine Ratio 27, Glucose Level 114, Calcium Level 8.7, Corrected Calcium 9.4, Total Bilirubin 0.5, Aspartate Amino Transf (AST/SGOT) 21, Alanine Aminotransferase (ALT/SGPT) 29, Alkaline Ph osphatase 78, Total Protein 6.4, Albumin 3.1 Discharge Home Medications: Active Scripts Active Eliquis (Apixaban) 5 Mg Tablet 5 Mg PO BID 365 Days Vitamin B-12 (Cyanocobalamin (Vitamin B-12)) 1,000 Mcg Tablet 1,000 Mcg PO DAILY@0700 7 Days Solu-Medrol 40 mg Vial (Methylprednisolone Sod Succ/Pf) 40 Mg/1 Ml Vial 40 Mg IV Q12HR 3 Days Pantoprazole Sodium 40 Mg Tablet.dr 40 Mg PO DAILY 7 Days Deep Sea (Sodium Chloride) 44 Ml [place] 0 Ml NA NEEDED PRN 7 Days Mucinex (Guaifenesin) 600 Mg Tab.er.12h 600 Mg PO BID 7 Days Budesonide 0.5 Mg/2 Ml Ampul.neb 0.5 Mg INH RTBID 7 Days Furosemide 40 Mg Tablet 40 Mg PO DAILY 7 Days Xanax Tablet (Alprazolam) 0.25 Mg Tab 0.25 Mg PO Q8H PRN 7 Days Venofer (Iron Sucrose Complex) 200 Mg/10 Ml Vial 200 Mg IV Q48H@09 Iprat-Albut 0.5-3(2.5) mg/3 ml (Ipratropium/Albuterol Sulfate) 3 Ml Ampul.neb 3 Ml INH RTQ6HR 7 Days Doxycycline Hyclate 100 Mg Tablet 100 Mg PO BID@07,17 3 Days Cefepime 1 gm Injection (Cefepime HCl/Dextrose, Iso-Osm) 1 Gm/50 Ml Froz.piggy 1 Gm IV Q6H 3 Days Reported Multivitamin 1 Each Tablet 1 Each PO HS Aspirin EC (Aspirin) 81 Mg Tablet.dr 81 Mg PO HS Levothyroxine Sodium 25 Mcg Tablet 25 Mcg PO DAILY Atorvastatin Calcium 20 Mg Tablet 20 Mg PO HS Instructions to patient/family Please see electronic discharge instructions given to patient. Diagnosis/Problems Diagnosis/Problems (1) Respiratory failure (2) Hypercapnia (3) Respiratory acidosis (4) RILEY (obstructive sleep apnea) (5) CAD (coronary artery disease) (6) Hx of CABG (7) Obesity (8) Hypertension (9) Hyperlipidemia (10) Hypothyroidism (11) Chronic kidney disease (12) Warfarin anticoagulation (13) Transfusion of blood during current hospitalisation (14) Anemia Clinical Quality Measures DVT/VTE Risk/Contraindication: Contraindications-Pharm: Other *list below* Other: JOSE Freeman DO Jun 11, 2021 13:39
--- NOTE | 2021-06-11 15:29 | Progress Note - Cardiology ---
Cardiology SOAP Progress Note Subjective: Feels much better today No cp or palp or syncope No shortness of breath at rest No n/v Gen malaise and weakness present Objective: I&O/Vital Signs 06/11/21 06/11/21 06/11/21 06/11/21 04:00 07:00 07:11 08:15 Temp 37.1 36.8 Pulse 74 88 78 Resp 15 18 B/P (MAP) 133/63 128/61 Pulse Ox 93 92 94 O2 Delivery NIV Bilevel High Flow N/C Nasal Cannula O2 Flow Rate 35.00 5.00 5.00 06/11/21 06/11/21 06/11/21 06/11/21 08:17 08:33 11:15 12:56 Temp 37.0 Pulse 75 78 Resp 18 B/P (MAP) 135/70 Pulse Ox 94 90 O2 Delivery Nasal Cannula High Flow N/C High Flow N/C O2 Flow Rate 5.00 5.00 5.00 06/11/21 00:00 Intake Total 1020 ml Output Total 1500 ml Balance -480 ml Constitutional: AAO x 3, well-developed, well-nourished, other (on BiPAP) Respiratory: No accessory muscle use, No respiratory distress; chest expansion is symmetric, chest is bilaterally symmetric, rhonchi (scattered), other (lung s ounds course) Cardiovascular: irregularly irregular; No JVD; S1 and S2 Gastrointestional: No tender; round; No guarding; audible bowel sounds Extremities: other (mod bilat LE swelliing) Neurologic/Psychiatric: other (moves all limbs equally) Skin: normal color, warm/dry Results/Procedures: Labs Laboratory Tests 06/11/21 05:24: White Blood Count 9.1, Red Blood Count 3.27L, Hemoglobin 7.7L, Hematocrit 27L, Mean Corpuscular Volume 81, Mean Corpuscular Hemoglobin 24L, Mean Corpuscular Hemoglobin Concent 29L, Red Cell Distribution Width 18.3H, Platelet Count 377, Mean Platelet Volume 9.4, Immature Granulocyte % (Auto) 1, Neutrophils (%) (Auto) 86H, Lymphocytes (%) (Auto) 6L, Monocytes (%) (Auto) 7, Eosinophils (%) (Auto) 0, Basophils (%) (Auto) 0, Neutrophils # (Auto) 7.9H, Lymphocytes # (Auto) 0.6L, Monocytes # (Auto) 0.6, Eosinophils # (Auto) 0.0, Basophils # (Auto) 0.0, Immature Granulocyte # (Auto) 0.1, Prothrombin Time 20.4H, INR Comment 1.7H, Sodium Level 134L, Potassium Level 3.8, Chloride Level 95L, Carbon Dioxide Level 27, Anion Gap 12, Blood Urea Nitrogen 24H, Creatinine 0.88, Estimat Glomerular Filtration Rate 88, BUN/Creatinine Ratio 27, Glucose Level 114H, Calcium Level 8.7, Corrected Calcium 9.4, Total Bilirubin 0.5, Aspartate Amino Transf (AST/SGOT) 21, Alanine Aminotransferase (ALT/SGPT) 29, Alkaline Phosphatase 78, Total Protein 6.4, Albumin 3.1L Microbiology 06/08/21 Gram Stain - Final, Complete 06/08/21 Sputum Culture - Final, Complete Usual upper respiratory amanuel 06/08/21 Blood Culture - Preliminary, Resulted No growth Laboratory Tests 06/10/21 06:32 06/11/21 05:24 A/P: Assessment: Sinus node dysfunction: A Fib with a slow vent response 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 Green at [facility] in [place], [place] PAF - OAC with warfarin - currently being held - Sub-therapeutic INR - being held PAD - reports h/o bilat fem-pop (which he reports both have failed) - managed by Dr. Green at [facility] in [place], [place] HTN HLD Abnormal ECG. ECG of 06/07/21: A Fib with a relatively slow vent response, RBBB, LAFB Plan: Continue to hold amiodarone + digoxin + carvedilol because they may be the reason for his bradycardia Resume oral anticoag if and when ok with Dr Boudreaux. I communicated with Dr Boudreaux on this today Outpt card f/u advised CB CONTRERAS MD FACP FACC CCDS Jun 11, 2021 15:29
== END 2021-06-11 15:30 | disposition swing bed (61) | DRG 811 ==
LOC: ICU 16:26 → 4TH 06-09 10:50
PROVIDERS: ADMIT Internal Medicine; ATTEND Internal Medicine
PROC: 5A09457 Assistance with Respiratory Ventilation, 24-96 Consecutive Hours, Continuous Positive Airway Pressure (ICD-10-PCS; principal; 2021-06-07)
PROC: 5A0935A Assistance with Respiratory Ventilation, Less than 24 Consecutive Hours, High Flow/Velocity Cannula (ICD-10-PCS; 2021-06-07)
PROC: 8E0ZXY6 Isolation (ICD-10-PCS; 2021-06-07)
PROC: 0DJ08ZZ Inspection of Upper Intestinal Tract, Via Natural or Artificial Opening Endoscopic (ICD-10-PCS; 2021-06-10)
DX: D64.9 Anemia, unspecified (principal); I50.31 Acute diastolic (congestive) heart failure; J96.01 Acute respiratory failure with hypoxia; J96.02 Acute respiratory failure with hypercapnia; J18.9 Pneumonia, unspecified organism; I13.0 Hypertensive heart and chronic kidney disease with heart failure and stage 1 through stage 4 chronic kidney disease, or unspecified chronic kidney disease; E87.2 Acidosis; D68.318 Other hemorrhagic disorder due to intrinsic circulating anticoagulants, antibodies, or inhibitors; J44.0 Chronic obstructive pulmonary disease with (acute) lower respiratory infection; I45.3 Trifascicular block; M48.54XA Collapsed vertebra, not elsewhere classified, thoracic region, initial encounter for fracture; N18.9 Chronic kidney disease, unspecified; I25.10 Atherosclerotic heart disease of native coronary artery without angina pectoris; I48.0 Paroxysmal atrial fibrillation; G47.33 Obstructive sleep apnea (adult) (pediatric); E78.5 Hyperlipidemia, unspecified; E78.00 Pure hypercholesterolemia, unspecified; I73.9 Peripheral vascular disease, unspecified; E03.9 Hypothyroidism, unspecified; M19.91 Primary osteoarthritis, unspecified site; K44.9 Diaphragmatic hernia without obstruction or gangrene; K57.10 Diverticulosis of small intestine without perforation or abscess without bleeding; K22.89 Other specified disease of esophagus; H54.7 Unspecified visual loss; H91.90 Unspecified hearing loss, unspecified ear; Z95.1 Presence of aortocoronary bypass graft; Z87.891 Personal history of nicotine dependence; Z79.01 Long term (current) use of anticoagulants; I49.5 Sick sinus syndrome
CPT/HCPCS: 36415; 36600; 71045; 72070; 76700; 80053; 80162; 81000; 82274; 82607; 82805; 83540; 83605; 83735; 84100; 84132; 84145; 84443; 84484; 85007; 85014; 85018; 85025; 85027; 85610; 86850; 86870; 86900; 86901; 86902; 86920; 86922; 87040; 87070; 87081; 87205; 87636; 93005; 93306; 94640; 94660; 94664; 94760

== ENCOUNTER → 2021-06-07 | Outpatient (CLI) | payer OTHER, MEDICARE ==
[~2021-06-07] MED LIST: ALPR.25T PO; AMIO200T65 PO; AMLO-251 PO; APIX5TAB PO; ASPI-1238 PO; ATOR20TA66 PO; BUDE0.5A INH; CARV6.252 PO; CEFE1FRO IV; CYAN-41 PO; DIGO125T3 PO; DOXY100T2 PO; FURO40TA4 PO; GUAI600T43 PO; HYDR25TA4 PO; IPRA3AMP31 INH; IRON100V2 IV; ISOS30TA82 PO; LEVO25TA5 PO; LOSA100T57 PO; METH40VI2 IV; MULT-1136 PO; OMEG-160 PO; OMEP20CA18 PO; PANT40TA52 PO; SODI44SP2; WARF-48 PO
== END ==
LOC: LABNPT 11:40
PROVIDERS: ATTEND Nurse Practitioner Family
DX: Z01.89 Encounter for other specified special examinations (principal)
CPT/HCPCS: 86850; 86870; 86900; 86901; 86902; 86922

== ENCOUNTER 2021-06-18 13:44 | Outpatient (CLI) | payer MEDICARE, OTHER | END 2021-06-18 14:40 | LOC: SLEEP 13:44 | PROVIDERS: ATTEND Otolaryngology Otolaryngology/Facial Plastic Surgery | DX: G47.33 Obstructive sleep apnea (adult) (pediatric) (principal) | CPT/HCPCS: G0399 ==

== ENCOUNTER → 2021-07-20 | Outpatient (CLI) | payer MEDICARE, OTHER ==
[~2021-07-20] MED LIST changes: +ALBU2.5V4 INH; +CATHETER FLUSH 10 ML SYR IVP PRN; +REGADENOSON 0.4 MG/5 ML SYR (LEXISCAN) IV ONE
[2021-07-20 09:01] VITALS: BP 153/77
--- NOTE | 2021-07-21 10:48 | STRESS TEST ---
DATE OF SERVICE: 07/20/2021 RESTING AND POST REGADENOSON TECHNETIUM-99M TETROFOSMIN SPECT CT IMAGING ORDERING PHYSICIAN: Dr. Mathias. PRIMARY PHYSICIAN: Dr. Moncada. CLINICAL DIAGNOSIS: Coronary artery disease. Baseline images were carried out after injection of 9.75 mCi of technetium-99m Tetrofosmin. This was followed by 0.4 mg regadenoson and 31.3 mCi of technetium-99m Tetrofosmin for stress imaging. The electrocardiogram showed sinus rhythm at baseline. There was right bundle branch block and left anterior fascicular block at baseline. The electrocardiogram did not change significantly with regadenoson infusion. A few premature ventricular contractions were seen. There was no ventricular tachycardia. The patient tolerated the procedure well. Review of images at rest and following stress shows moderate cardiomegaly. There does not appear to be significant ischemia. Some degree of diaphragmatic attenuation is seen both at rest and following regadenoson infusion. Gated images show well preserved global left ventricular systolic function. There does not appear to be any distinct regional wall motion abnormality, including in the diaphragmatic wall of the left ventricle. CONCLUSIONS: 1. Moderate cardiomegaly. 2. No evidence of significant myocardial ischemia or infarction. 3. Well preserved global left ventricular systolic function with a calculated ejection fraction of 52%. Job ID: [id number] DocumentID: [id number] Dictated Date: 07/21/2021 09:26:27 Structures Assembler Date: 07/21/2021 10:47:39 Dictated By: CB MATHIAS MD, MA, FACP, FACC,
== END ==
LOC: CARD 07:30
PROVIDERS: ATTEND Internal Medicine Cardiovascular Disease
DX: I25.10 Atherosclerotic heart disease of native coronary artery without angina pectoris (principal); I51.7 Cardiomegaly
CPT/HCPCS: 78452; 93017; 93225; 93226; A9502

== ENCOUNTER 2021-07-22 08:08 | Outpatient (CLI) | payer MEDICARE, OTHER ==
[~2021-07-22] VITALS: Ht 175.3 cm; Wt 93.2 kg
[~2021-07-22 08:08] MED LIST changes: -ALBU2.5V4 INH; -CATHETER FLUSH 10 ML SYR IVP PRN; -REGADENOSON 0.4 MG/5 ML SYR (LEXISCAN) IV ONE
[2021-07-22] MEDS ORDERED: FURO40TA4 PO (09:37)
[2021-07-22] MEDS ORDERED: APIX5TAB PO (09:37)
[2021-07-22] MEDS ORDERED: ALBU2.5V4 INH (09:37)
[2021-07-22] MEDS ORDERED: GUAI600T43 PO (09:37)
[2021-07-22] MEDS ORDERED: PANT40TA52 PO (09:37)
== END 2021-07-22 09:37 | disposition home or self-care (01) ==
LOC: PREOP 08:08
PROVIDERS: ATTEND Surgery
DX: Z01.818 Encounter for other preprocedural examination (principal)

== ENCOUNTER 2021-08-02 11:49 | Day surgery (SDC) | payer MEDICARE, OTHER ==
[~2021-08-02] VITALS: Ht 175 cm; Wt 93.2 kg
[~2021-08-02 11:49] MED LIST changes: +ALBU2.5V4 INH
[2021-08-02] MEDS ORDERED: LACTATED RINGERS 1,000 ML IV ONE (11:52)
[2021-08-02] MEDS ORDERED: LACTATED RINGERS 1,000 ML IV STA (12:09)
[2021-08-02 12:10] VITALS: BP 135/84
--- NOTE | 2021-08-02 12:35 | Progress Note-Pre Operative ---
Pre-Operative Progress Note H&P Reviewed The H&P was reviewed, patient examined and no changes noted. Time Seen by Provider: 12:33 Date H&P Reviewed: Aug 02, 2021 Time H&P Reviewed: 12:33 Pre-Operative Diagnosis: Anemia, Change in bowels ANTONINA AU DO Aug 02, 2021 12:35
[2021-08-02] MEDS ORDERED: PROPOFOL INJECTION 50 ML IV ONE (12:39)
[2021-08-02 13:25] VITALS: BP 102/58
--- NOTE | 2021-08-02 13:28 | Progress Note-Post Operative ---
Post-Operative Progess Note Surgeon (s)/Cloth Brushing And Sueding Supervisor (s) Surgeon ANTONINA AU DO Cl[employer] Brushing [employer] Sueding Supervisor: Avery Loera, MSIII Pre-Operative Diagnosis Anemia, Change in bowels Post-Operative Diagnosis Polyps diverticula int hemorrhoids Procedure & Operative Findings Date of Procedure 08/02/21 Procedure Performed/Findings Colonoscopy with snare polypectomy PROCEDURE NOTE: After informed consent was obtained, the patient was brought to the endoscopy suite, placed in bed in left lateral decubitus position. He was administered IV sedation by the PLASTIC JOINT MAKER who then monitored his vitals the entire time, heart rate, blood pressure and pulse ox and the scope was inserted, pushed all the way to about 150 cm and pushed into the cecum. Took a picture of appendiceal orifice and found multiple polyps here; removed eight with snare polypectomy. Then slowly withdrew the scope insufflating to look circumferentially at the elise, starting in the cecum and up the ascending colon. Found three more polyps here and removed them with the snare. Continued to the hepatic flexure, then down the transverse colon, splenic flexure, into the descending colon. Found another large polyp here and did another snare polypectomy to completely remove it. Finally down into the sigmoid, into the rectal vault and retroflexed the scope. Took a picture of some internal hemorrhoids. The patient tolerated the procedure. He was recovered in endoscopy suite. Anesthesia Type IV sedation by PLASTIC JOINT MAKER Estimated Blood Loss Estimated blood loss (mL): scant Specimens/Packing Specimens Removed cecal polyps x 8 asc colon polyps x 3 desc colon polyp ANTONINA AU DO Aug 02, 2021 13:28
[2021-08-02 13:30] VITALS: BP 111/62
--- NOTE | 2021-08-02 13:30 | Endoscopy Discharge Instruct ---
Endo Procedure/Findings Findings 1.: Polyp 2.: Diverticulosis 3.: Internal Hemorrhoids Discharge Instructions - Activity: You might feel a little sleepy until tomorrow. This is due to the medicine you received to relax you. Until tomorrow, you should: NOT drive a car, operate machinery or power tools. NOT drink any alcoholic beverages. NOT make any important decisions or sign importortant papers. Do not return to work until tomorrow, unless otherwise instructed. Resume previous activities tomorrow. Diet: Start by taking liquids. If you tolerate liquids, advance to solid food. 1.: Colonoscopy in 1 year Notify Physician - If you experience excessive bleeding, unusual abdominal pain, fever, or chest pain, contact your doctor immediately. ANTONINA AU DO Aug 02, 2021 13:30
--- NOTE | 2021-08-02 13:31 | Anesthesia-General Post-Op ---
MAC Patient Condition Mental Status/LOC: Same as Preop Cardiovascular: Satisfactory Nausea/Vomiting: Absent Respiratory: Satisfactory Pain: Controlled Complications: Absent Post Op Complications Complications None Follow Up Care/Instructions Patient Instructions None needed. Anesthesiology Discharge Order Discharge Order Patient is doing well, no complaints, stable vital signs, no apparent adverse anesthesia problems. No complications reported per nursing. JOSEPH GONCALVES CRNA Aug 02, 2021 13:31
[2021-08-02 13:58] VITALS: BP 133/75
[2021-08-02 13:59] VITALS: BP 133/75
== END 2021-08-02 14:15 | disposition home or self-care (01) ==
LOC: ENDO 11:49
PROVIDERS: ATTEND Surgery
DX: D12.0 Benign neoplasm of cecum (principal); D12.2 Benign neoplasm of ascending colon; D12.4 Benign neoplasm of descending colon; K57.30 Diverticulosis of large intestine without perforation or abscess without bleeding; K64.8 Other hemorrhoids; D64.9 Anemia, unspecified; Z79.01 Long term (current) use of anticoagulants; Z95.1 Presence of aortocoronary bypass graft; Z87.891 Personal history of nicotine dependence
CPT/HCPCS: 88305

== ENCOUNTER 2021-08-09 07:19 | Inpatient (IN) | payer MEDICARE, OTHER ==
[~2021-08-09] VITALS: Ht 175.3 cm; Wt 92.0 kg
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
[2021-08-09] MEDS ORDERED: NS IV 500 ML 500 ML IV ONE ×2 (08:00→11:45)
[2021-08-09 08:11] LABS: BASOPHILS # (AUTO) 0.1 10^3/uL (0.0-0.1); BASOPHILS % (AUTO) 0 % (0-10); EOSINOPHILS # (AUTO) 0.2 10^3/uL (0.0-0.3); EOSINOPHILS % (AUTO) 2 % (0-10); HEMATOCRIT 25 % (40-54); HEMOGLOBIN 7.6 g/dL (13.3-17.7); LYMPHOCYTES # (AUTO) 1.2 10^3/uL (1.0-4.0); LYMPHOCYTES % (AUTO) 10 % (12-44); MEAN CORPUSCULAR HEMOGLOBIN 27 pg (25-34); MEAN CORPUSCULAR HGB CONC 30 g/dL (32-36); MEAN CORPUSCULAR VOLUME 89 fL (80-99); MEAN PLATELET VOLUME 9.9 fL (9.0-12.2); MONOCYTES # (AUTO) 0.8 10^3/uL (0.0-1.0); MONOCYTES % (AUTO) 7 % (0-12); NEUTROPHILS % (AUTO) 80 % (42-75); PLATELET COUNT 337 10^3/uL (130-400); WHITE BLOOD COUNT 11.3 10^3/uL (4.3-11.0)
[2021-08-09 08:19] LABS: ALBUMIN 3.2 GM/DL (3.2-4.5)
[2021-08-09 08:20] LABS: POTASSIUM 3.8 MMOL/L (3.6-5.0)
[2021-08-09 08:21] LABS: CALCIUM 8.6 MG/DL (8.5-10.1)
[2021-08-09 08:22] LABS: TOTAL PROTEIN 5.8 GM/DL (6.4-8.2)
[2021-08-09 08:23] LABS: INR 1.1 (0.8-1.4); PROTHROMBIN TIME PATIENT 14.9 SEC (12.2-14.7)
[2021-08-09 08:24] LABS: BILIRUBIN,TOTAL 0.3 MG/DL (0.1-1.0)
[2021-08-09 08:26] LABS: CREATININE SERUM 0.86 MG/DL (0.60-1.30)
[2021-08-09] MEDS ORDERED: NS 100 ML (IVPB) BAG IV ONE (08:30)
[2021-08-09] MEDS ORDERED: CATHETER FLUSH 10 ML SYR IV PRN (08:30)
[2021-08-09] MEDS ORDERED: IOHEXOL 350 MG/ML 100 ML (OMNIPAQUE 350) VIAL IV ONE (08:30)
[2021-08-09] MEDS ORDERED: HOLD METFORMIN - RECEIVED CONTRAST 20 ML VIAL IV SCH (08:30)
--- NOTE | 2021-08-09 09:27 | Diagnostic Imaging Report ---
PROCEDURE: CT abdomen and pelvis with contrast. TECHNIQUE: Multiple contiguous axial images were obtained through the abdomen and pelvis after administration of intravenous contrast. Auto Exposure Controls were utilized during the CT exam to meet ALARA standards for radiation dose reduction. All CT scans use one or more of the following dose optimizing techniques: automated exposure control, MA and/or KvP adjustment based on patient size and exam type or iterative reconstruction. INDICATION: Diarrhea and bloody stools Images through the lower thorax reveal multiple nonacute right rib fractures. Prominent interstitial markings in the lung bases could be due to scarring. There is no focal hepatic or gallbladder abnormality. There is mild prominence of extrahepatic biliary tree without evidence of calculus. There is also dilatation of the proximal pancreatic duct without stone or discrete mass identified. Spleen is unremarkable in appearance. There is small hiatal hernia. Adrenal glands are unremarkable. There are several renal cortical cysts, larger on the left. There are several nonobstructing bilateral renal calculi. There is no evidence of ureteric stone. There are numerous calculi present within the left colon without significant pericolonic inflammation. No abscess is identified. There is mild fluid distention of the colon artifact from right hip hardware limits assessment of the pelvis. Unopacified bladder appears to be normal. There is extension of fat into the right inguinal canal. No organized fluid collection or focal inflammation is identified. There is moderate aortoiliac atherosclerotic calcification with mild lumbar spondylosis. IMPRESSION: There is left colonic diverticular disease without evidence of active inflammation. There is mild herniation of fat into the right inguinal canal. There is mild biliary ductal and pancreatic ductal dilatation without evidence of calculus or obstructing mass identified. Dictated by: Dictated on workstation # [id number]
[2021-08-09] MEDS ORDERED: NS IV 500 ML 500 ML IV SCH ×3 (11:45→19:30)
[2021-08-09] MEDS ORDERED: PANTOPRAZOLE 40 MG (PROTONIX) VIAL IV ONE (12:00)
--- NOTE | 2021-08-09 12:09 | History & Physical ---
History of Present Illness HPI/Chief Complaint Chief complaint: GI bleed History of present illness: This is a complicated 76-year-old white male clinic patient of [facility] with new diagnosis of RILEY on CPAP by Dr. Coyle, atrial fibrillation on anticoagulation managed by Dr. Mathias and severe peripheral vascular disease status post bypasses who presented with GI bleeding 1 week after colonoscopy by Dr. Childs with polypectomy. He remained on anticoagulation. He became orthostatic hypotensive in the ER requiring 1 L of fluid and will obtain 2 units of blood and Dr. Childs will be consulted along with Dr. Mathias. Source: patient Exam Limitations: no limitations Date Seen 08/09/21 Time Seen by a Provider: 12:20 Attending Physician PCP Grzegorz Moncada DO Referring Physician Date of Admission Home Medications & Allergies Home Medications Reviewed patient Home Medication Reconciliation performed by pharmacy medication reconciliations nanotechnician and/or nursing. Patients Allergies have been reviewed. Allergies Allergies Coded Allergies No Known Drug Allergies (Unverified07/14/10) Past Vuxemxh-Alltjc-Uzhjgy Hx Past Med/Social Hx: Reviewed Nursing Past Med/Soc Hx, Reviewed and Corrections made Patient Social History Marrital Status: Employed/Student: employed Alcohol Use: Past History Smoking Status: Former Smoker Former Smoker, Quit: Jul 23, 1991 2nd Hand Smoke Exposure: No Recent Foreign Travel: No Contact w/other who traveled: No Recent Hopitalizations: No Immunizations Up To Date Tetanus Booster (TDap): Unknown Date of Influenza Vaccine: Dec 22, 2020 Seasonal Allergies Seasonal Allergies: Yes Past Medical History Surgeries: Appendectomy, CABG, Coronary Stent, Orthopedic Respiratory: Sleep Apnea Currently Using CPAP: Yes Currently Using BIPAP: No Cardiac: Atrial Fibrillation, Coronary Artery Disease, High Cholesterol, Hype rtension, Peripheral Vascular Genitourinary: Renal Failure Gastrointestinal: Chronic Constipation Musculoskeletal: Arthritis, Fractures Endocrine: Hypothyroidsim Hearing Impairment: Hard of Hearing History of Blood Disorders: Yes (anemia) Family History CAD Over 55 Years Old Review of Systems Constitutional: see HPI, malaise, weakness EENTM: no symptoms reported Respiratory: dyspnea on exertion Cardiovascular: no symptoms reported Gastrointestinal: abdominal pain, melena Genitourinary: no symptoms reported Musculoskeletal: no symptoms reported Skin: no symptoms reported Psychiatric/Neurological: No Symptoms Reported All Other Systems Reviewed Negative Unless Noted: Yes Physical Exam Physical Exam Vital Signs Vital Signs - First Documented 08/09/21 08/09/21 08/09/21 07:23 15:00 15:15 Temp 36.2 Pulse 98 Resp 12 B/P (MAP) 118/62 (80) Pulse Ox 97 O2 Delivery Room Air O2 Flow Rate 1.00 FiO2 28 Capillary Refill : Less Than 3 Seconds Height, Weight, BMI Height: '" Weight: lbs. oz. kg; 28.00 BMI Method: General Appearance: WD/WN, Anxious, Chronically ill, Mild Distress Eyes: Bilateral Eye Normal Inspection, Bilateral Eye PERRL HEENT: PERRL/EOMI, Normal ENT Inspection, Pharynx Normal Neck: Full Range of Motion, Normal Inspection, Non Tender, Supple, Carotid Bruit Respiratory: Chest Non Tender, Lungs Clear, Normal Breath Sounds, No Accessory Muscle Use, No Respiratory Distress, Decreased Breath Sounds Cardiovascular: Regular Rate, Rhythm, No Edema, No Gallop, No JVD, No Murmur, Normal Peripheral Pulses, Tachycardia Gastrointestinal: Normal Bowel Sounds, No Organomegaly, No Pulsatile Mass, Non Tender, Soft Back: Normal Inspection, No CVA Tenderness, No Vertebral Tenderness Extremity: Normal Capillary Refill, Normal Inspection, Normal Range of Motion, Non Tender, No Calf Tenderness, No Pedal Edema Neurologic/Psychiatric: Alert, Oriented x3, No Motor/Sensory Deficits, Normal Mood/Affect Skin: Normal Color, Warm/Dry Lymphatic: No Adenopathy Results Results/Procedures Labs Laboratory Tests 08/09/21 08:00 08/09/21 19:02 Patient resulted labs reviewed. Assessment/Plan Admission Diagnosis Assessment: Acute GI bleed 1 week following colonoscopy with polypectomy Hypotension due to hypovolemia Acute on chronic anemia requiring 2 units of packed red blood cell transfusion COPD RILEY on CPAP recent diagnosis by Dr. Coyle Atrial fibrillation CAD previous CABG Oral anticoagulation Compression fracture T6-T7 8 weeks ago due to cough History of vascular surgeries lower extremities History of alcohol and drug dependence remotely Home oxygen dependent Hypothyroidism Hypertension Hyperlipidemia Chronic kidney disease Chronic constipation Plan: Supportive care Transfuse Appreciate Dr. Childs Admission Status: Inpatient Order (span 2 midnights) Reason for Inpatient Admission: JOSE Freeman DO August 09, 2021 12:09
--- NOTE | 2021-08-09 13:09 | Tele-ICU Progress Note ---
Subjective Date Seen by a Provider: August 09, 2021 Time Seen by a Provider: 12:24 Subjective/Events-last exam This virtual visit was conducted using real time audio/video. Thank you for asking us to see this patient for BRBPR with low BP in ER. Recent events: colonoscopy with biopsies 1 recently 1 wk ago. On Eliquis for afib. PMH: COPD on 1 L home O2, afib on Eliquis, HL, HTN, CABG/stent, PAD, hypothy., RILEY on CPAP, CKD, LA JOLLA. SH: smoking history [id number]. FH: Non-contributory. ROS: as in HPI PE: VSS. 118/62 O2 sat 97% on RA HEENT: No obvious masses, adenopathy or JVD. Chest: clear to auscultation. CV: RRR S1 S2 No murmur or added sounds. Abd: Non-tender. Bowel sounds Y. : Unremarkable. Multani N. GRANULATOR MACHINE OPERATOR/psychiatric: Grossly intact. No obvious focal findings. Extremities: No edema. Capillary refill < 3 seconds. Skin: unremarkable. Results: ElevatedWCC 11.3, BUN 20 . Decreased Hb 7.6. CTA unremarkable. Available chart/ vitals / labs / images reviewed. Video assessment done using teleICU camera, rest of exam as per RN. A/P: Critical Care: critically ill patient. Cont. IVF, PRBCs PRN. Will add PRN duonebs w COPD history. Discussed with LIZ Lemus. Asked RN to reach out to eICU if any questions or concerns later. Time spent with patient/coordination of care with other health professionals ( mins): 30 Sepsis Event Evaluation Height, Weight, BMI Height: '" Weight: lbs. oz. kg; 28.00 BMI Method: Exam Exam Patient acknowledged, consented, and participated in this virtual visit which was conducted using real time audio/video Vital Signs Date Time Temp Pulse Resp B/P (MAP) Pulse Ox O2 Delivery O2 Flow Rate FiO2 08/09/21 12:55 80 16 106/64 98 Room Air 08/09/21 07:23 36.2 98 12 118/62 (80) 97 Room Air Height & Weight Height: '" Weight: lbs. oz. kg; 28.00 BMI Method: General Appearance: Thin Capillary Refill: Less Than 3 Seconds Peripheral Pulses: 1+ Dorsalis Pedis (R) (See free text), 1+ Left Dors-Pedis (L) Gastrointestinal: normal bowel sounds, non tender, soft Results Lab Laboratory Tests 08/09/21 08:00 Assessment/Plan Assessment/Plan See free text. Critical Care: Critically Ill Patient CHRISTOPHER BHANDARI MD August 09, 2021 13:09
[2021-08-09] MEDS ORDERED: polyethylene glycoL POWDER 17 GM (MIRALAX) PACK PO PRN (13:15)
[2021-08-09] MEDS ORDERED: diphenhydrAMINE 50 MG/ML INJ (BENADRYL) IVP PRN (13:15)
[2021-08-09] MEDS ORDERED: MELATONIN 3 MG TABLET PO PRN (13:15)
[2021-08-09] MEDS ORDERED: ONDANSETRON 4 MG (ZOFRAN) ORAL DISSOLVE TAB PO PRN (13:15)
[2021-08-09] MEDS ORDERED: NS IV 1000 ML 1,000 ML IV SCH (13:15)
[2021-08-09] MEDS ORDERED: ANTACID SUSP 30 ML UDC (MYLANTA) PO PRN (13:15)
[2021-08-09] MEDS ORDERED: LACTULOSE SYRUP 10GM/15ML (ENULOSE) 30ML UDC PO PRN (13:15)
[2021-08-09] MEDS ORDERED: CALCIUM CARBONATE 500 MG (TUMS) TAB.CHEW PO PRN (13:15)
[2021-08-09] MEDS ORDERED: diphenhydrAMINE 25 MG TAB (BENADRYL) PO PRN (13:15)
[2021-08-09] MEDS ORDERED: ACETAMINOPHEN 325 MG TABLET PO PRN (13:15)
[2021-08-09] MEDS ORDERED: BISACODYL 10 MG SUPP (DULCOLAX) PR PRN (13:15)
[2021-08-09] MEDS ORDERED: MILK OF MAGNESIA 400 MG/5 ML 30 ML UDC PO PRN (13:15)
[2021-08-09] MEDS ORDERED: ONDANSETRON 4 MG/2 ML (SDV) Z0FRAN IV PRN (13:15)
[2021-08-09] MEDS ORDERED: morphine INJ 4 MG/ML 1 ML (VIAL/SYRINGE) IV PRN (13:15)
[2021-08-09] MEDS: APAP 300 MG/CODEINE 30 MG (TYLENOL #3) TAB PO PRN (14:03)
[2021-08-09 15:03] VITALS: BP 106/57
[2021-08-09 15:15] VITALS: BP 106/57
[2021-08-09] MEDS ORDERED: RT-ALBUTEROL/IPRATROPIUM 3 ML (DUONEB) VIAL INH PRN (15:30)
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
[2021-08-09] MEDS: RT-ALBUTEROL/IPRATROPIUM 3 ML (DUONEB) VIAL INH SCH ×2 (18:31→21:37)
[2021-08-09 19:11] LABS: HEMOGLOBIN 6.8 g/dL (13.3-17.7)
[2021-08-09 20:17] VITALS: BP 127/50
[2021-08-09 20:32] VITALS: BP 114/77
[2021-08-09] MEDS: DOCUSATE SODIUM 100 MG (COLACE) CAP PO SCH (21:55)
[2021-08-09] MEDS: SENNOSIDES 8.6 MG (SENOKOT) TAB PO SCH (21:55)
[2021-08-09 23:30] VITALS: BP 133/69
[2021-08-09 23:45] VITALS: BP 114/63
[2021-08-10] MEDS: RT-ALBUTEROL/IPRATROPIUM 3 ML (DUONEB) VIAL INH SCH ×5 (02:11→20:15)
[2021-08-10 03:40] LABS: BASOPHILS # (AUTO) 0.1 10^3/uL (0.0-0.1); BASOPHILS % (AUTO) 1 % (0-10); EOSINOPHILS # (AUTO) 0.3 10^3/uL (0.0-0.3); EOSINOPHILS % (AUTO) 3 % (0-10); HEMATOCRIT 26 % (40-54); HEMOGLOBIN 8.6 g/dL (13.3-17.7); LYMPHOCYTES % (AUTO) 19 % (12-44); MEAN CORPUSCULAR HEMOGLOBIN 28 pg (25-34); MEAN CORPUSCULAR HGB CONC 33 g/dL (32-36); MEAN CORPUSCULAR VOLUME 86 fL (80-99); MONOCYTES # (AUTO) 1.1 10^3/uL (0.0-1.0); MONOCYTES % (AUTO) 10 % (0-12); NEUTROPHILS # (AUTO) 7.2 10^3/uL (1.8-7.8); NEUTROPHILS % (AUTO) 68 % (42-75); PLATELET COUNT 247 10^3/uL (130-400); WHITE BLOOD COUNT 10.6 10^3/uL (4.3-11.0)
[2021-08-10 03:51] LABS: ALBUMIN 2.7 GM/DL (3.2-4.5); POTASSIUM 3.4 MMOL/L (3.6-5.0)
[2021-08-10 03:52] LABS: CALCIUM 7.8 MG/DL (8.5-10.1)
[2021-08-10 03:54] LABS: TOTAL PROTEIN 4.7 GM/DL (6.4-8.2)
[2021-08-10 03:57] LABS: CREATININE SERUM 0.84 MG/DL (0.60-1.30)
--- NOTE | 2021-08-10 05:24 | Progress Note ---
Subjective Date Seen by a Provider: August 10, 2021 Time Seen by a Provider: 09:15 Subjective/Events-last exam Pt is doing a lot better Transferring to the floor Hemoglobin of 8.6 after 2 units given yesterday No bowels moving since yesterday BP good at 125/50 Will discharge tomorrow at 0930 to get him to his appt with Dr. Ferreira for compression fraction treatment of kyphoplasty Review of Systems General: Fatigue, Malaise Objective Exam Last Set of Vital Signs Vital Signs Date Time Temp Pulse Resp B/P (MAP) Pulse Ox O2 Delivery O2 Flow Rate FiO2 08/10/21 02:11 96 Nasal Cannula 1.00 08/10/21 01:00 90 08/10/21 00:00 116/71 08/09/21 23:45 36.9 21 08/09/21 15:15 28 Capillary Refill : Less Than 3 Seconds I&O Intake and Output 08/09/21 23:59 Intake Total 1960 ml Balance 1960 ml Intake Oral 850 ml IV Total 1000 ml Other 110 ml # Voids 3 # Bowel Movements 3 Daily Weight Change Yes, 2-13 lbs General: Alert, Oriented X3, Cooperative, No Acute Distress Lungs: Clear to Auscultation, Normal Air Movement Heart: Regular Rate, Normal S1, Normal S2, No Murmurs Psych/Mental Status: Mental Status NL, Mood NL Results Lab Laboratory Tests 08/09/21 08:00: White Blood Count 11.3H, Red Blood Count 2.86L, Hemoglobin 7.6L, Hematocrit 25L, Mean Corpuscular Volume 89, Mean Corpuscular Hemoglobin 27, Mean Corpuscular Hemoglobin Concent 30L, Red Cell Distribution Width 18.3H, Platelet Count 337, Mean Platelet Volume 9.9, Immature Granulocyte % (Auto) 1, Neutrophils (%) (Auto) 80H, Lymphocytes (%) (Auto) 10L, Monocytes (%) (Auto) 7, Eosinophils (%) (Auto) 2, Basophils (%) (Auto) 0, Neutrophils # (Auto) 9.0H, Lymphocytes # (Auto) 1.2, Monocytes # (Auto) 0.8, Eosinophils # (Auto) 0.2, Basophils # (Auto) 0.1, Immature Granulocyte # (Auto) 0.1, Prothrombin Time 14.9H, INR Comment 1.1, Activated Partial Thromboplast Time 33, Sodium Level 137, Potassium Level 3.8, Chloride Level 97L, Carbon Dioxide Level 26, Anion Gap 14, Blood Urea Nitrogen 20H, Creatinine 0.86, Estimat Glomerular Filtration Rate 89, BUN/Creatinine Ratio 23, Glucose Level 109H, Calcium Level 8.6, Corrected Calcium 9.2, Iron Level 22L, Total Bilirubin 0.3, Aspartate Amino Transf (AST/SGOT) 11, Alanine Aminotransferase (ALT/SGPT) 12, Alkaline Phosphatase 78, Total Protein 5.8L, Albumin 3.2, Vitamin B12 Level 1124H 08/09/21 19:02: Hemoglobin 6.8*L, Hematocrit 22L 08/10/21 03:34: White Blood Count 10.6, Red Blood Count 3.06L, Hemoglobin 8.6#L, Hematocrit 26L, Mean Corpuscular Volume 86, Mean Corpuscular Hemoglobin 28, Mean Corpuscular Hemoglobin Concent 33, Red Cell Distribution Width 17.4H, Platelet Count 247, Mean Platelet Volume 10.0, Immature Granulocyte % (Auto) 0, Neutrophils (%) (Auto) 68, Lymphocytes (%) (Auto) 19, Monocytes (%) (Auto) 10, Eosinophils (%) (Auto) 3, Basophils (%) (Auto) 1, Neutrophils # (Auto) 7.2, Lymphocytes # (Auto) 2.0, Monocytes # (Auto) 1.1H, Eosinophils # (Auto) 0.3, Basophils # (Auto) 0.1, Immature Granulocyte # (Auto) 0.0, Sodium Level 136, Potassium Level 3.4L, Chloride Level 100, Carbon Dioxide Level 24, Anion Gap 12, Blood Urea Nitrogen 18, Creatinine 0.84, Estimat Glomerular Filtration Rate 89, BUN/Creatinine Ratio 21, Glucose Level 96, Calcium Level 7.8L, Corrected Calcium 8.8, Total Bilirubin 1.0, Aspartate Amino Transf (AST/SGOT) 15, Alanine Aminotransferase (ALT/SGPT) 11, Alkaline Phosphatase 67, Total Protein 4.7L, Albumin 2.7L Assessment/Plan Assessment/Plan Assess & Plan/Chief Complaint Assessment: Acute GI bleed 1 week following colonoscopy with polypectomy Hypotension due to hypovolemia Acute on chronic anemia requiring 3 units of packed red blood cell transfusion COPD RILEY on CPAP recent diagnosis by Dr. Coyle Atrial fibrillation CAD previous CABG Oral anticoagulation Compression fracture T6-T7 8 weeks ago due to cough History of vascular surgeries lower extremities History of alcohol and drug dependence remotely Home oxygen dependent Hypothyroidism Hypertension Hyperlipidemia Chronic kidney disease Chronic constipation Plan: Supportive care Transfuse Appreciate Dr. Childs 08/10/21: Monitor hgb DC tomorrow Clinical Quality Measures DVT/VTE Risk/Contraindication: Contraindications-Pharm: Pt at low risk Other: GI bleed JOSE JACQUES DO August 10, 2021 05:24
[2021-08-10] MEDS ORDERED: RT-ALBUTEROL/IPRATROPIUM 3 ML (DUONEB) VIAL INH PRN (08:00)
--- NOTE | 2021-08-10 08:10 | Consultation-Cardiology ---
HPI-Cardiology Cardiology Consultation: Date of Consultation 08/10/21 Time Seen by a Provider: 08:15 Date of Admission 08-09-21 Attending Physician Cristy Boudreaux DO Admitting Physician Grzegorz Moncada DO Consulting Physician Gabriel Mathias MD HPI: Chief Complaint: GIB Mr Sanchez is a 76 yr old male admitted to ICU 5 with suspected GIB. He reports approx 1 week ago he had an endoscopy at which time he had polyp removal. He states he resumed his Eliquis post procedure. He states on Monday he developed bright red blood in his stools. He reports he felt weak and dizzy. He then came to the ED. He denies any c/o CP, palpitations, syncope, near syncope or LE swelling. He states he is feeling much better than at the time of admission. He reports his last dose of Eliquis was Monday morning. Review of Systems-Cardiology Review of Systems Constitutional: No chills, No fever; lightheadedness, malaise Eyes: No vision change Ears/Nose/Throat: No epistaxis Respiratory: As described under HPI Cardiovascular: As described under HPI Gastrointestinal: As described under HPI Genitourinary: No dysuria, No hematuria Skin: No rash on exposed areas, No ulcerations on exposed areas Psychiatric/Neurological: No anxiety, No depression, No seizure, No focal weakness, No syncope Hematologic: No bleeding abnormalities All Other Systems Reviewed Negative Unless Noted: Yes OPL-[id number]-[id number] Hx Patient Social History Marrital Status: Employed/Student: employed Smoking Status: Former Smoker 2nd Hand Smoke Exposure: No Have you traveled recently?: No Alcohol Use?: No Pt feels they are or have been: No Immunizations Up To Date Tetanus Booster (TDap): Unknown Date of Influenza Vaccine: Dec 22, 2020 Past Medical History PMH As described under Assessment. Family Medical History Family Medical History: He reports his father had CAD and from an VT at age 59. Allergies and Home Medications Allergies Coded Allergies: No Known Drug Allergies (Unverified , 07/14/10) Patient Home Medication List Acetaminophen with Codeine (Acetaminophen-Cod #3 Tablet) 300 Mg-30 Mg Tablet, 1 EA PO Q6 -8H PRN for PAIN-MODERATE (5-7), (Reported) Entered as Reported by: MIN HUDSON on 08/10/21 1510 Last Action: Reviewed Albuterol Sulfate (Albuterol Sulfate) 2.5 Mg/3 Ml Vial.neb, 2.5 MG INH QID, (Reported) Entered as Reported by: TRISTA JOYNER on 07/22/21936 Last Action: Reviewed Apixaban (Eliquis) 5 Mg Tablet, 5 MG PO BID, (Reported) Entered as Reported by: TRISTA JOYNER on 07/22/21936 Last Action: Reviewed Aspirin (Aspirin EC) 81 Mg Tablet.dr, 81 MG PO HS, (Reported) Entered as Reported by: MIN HUDSON on 06/08/21919 Last Action: Reviewed Atorvastatin Calcium (Atorvastatin Calcium) 20 Mg Tablet, 20 MG PO HS, (Reported) Entered as Reported by: MIN HUDSON on 06/08/21919 Last Action: Reviewed Cyanocobalamin (Vitamin B-12) (Vitamin B-12) 500 Mcg Tablet, 1,000 MCG PO HS, (Reported) Entered as Reported by: MIN HUDSON on 08/10/211509 Last Action: Reviewed Docusate Sodium (Docusate Sodium) 100 Mg Capsule, 100 MG PO BID, (Reported) Entered as Reported by: MIN HUDSON on 08/10/211509 Last Action: Reviewed Fexofenadine HCl (Deloris Allergy) 180 Mg Tablet, 180 MG PO DAILY, (Reported) Entered as Reported by: MIN HUDSON on 08/10/211509 Last Action: Reviewed Furosemide (Furosemide) 40 Mg Tablet, 40 MG PO DAILY, (Reported) Entered as Reported by: TRISTA JOYNER on 07/22/21936 Last Action: Reviewed Guaifenesin (Mucinex) 600 Mg Tab.er.12h, 600 MG PO HS, (Reported) Entered as Reported by: TRISTA JOYNER on 07/22/21936 Last Action: Reviewed Levothyroxine Sodium (Levothyroxine Sodium) 25 Mcg Tablet, 25 MCG PO DAILY, (Reported) Entered as Reported by: MIN HUDSON on 06/08/21919 Last Action: Reviewed Montelukast Sodium (Montelukast Sodium) 10 Mg Tablet, 10 MG PO HS, (Reported) Entered as Reported by: MIN HUDSON on 08/10/211509 Last Action: Reviewed Multivitamin (Multivitamin) 1 Each Tablet, 1 EACH PO HS, (Reported) Entered as Reported by: MIN HUDSON on 06/08/2120 Last Action: Reviewed Pantoprazole Sodium (Pantoprazole Sodium) 40 Mg Tablet.dr, 40 MG PO DAILY, (Reported) Entered as Reported by: TRISTA JOYNER on 07/22/21 0937 Last Action: Reviewed Sodium Chloride (Saline Nose [place]) 0.65 % [place], 1 SPRAY NSEACH UD PRN for DRY NOSE, (Reported) Entered as Reported by: MIN HUDSON on 08/10/211509 Last Action: Reviewed Tramadol HCl (Tramadol HCl) 50 Mg Tablet, 50 MG PO DAILY PRN for PAIN-MILD (1- 4), (Reported) Entered as Reported by: MIN HUDSON on 08/10/211509 Last Action: Reviewed Physical Exam-Cardiology Physical Exam Vital Signs/I&O 08/10/21 08/11/21 08/11/21 08/11/21 23:44 04:00 07:14 07:33 Temp 37.0 37.0 36.9 Pulse 89 85 85 Resp 20 20 20 B/P (MAP) 112/55 (74) 104/57 (73) 126/59 (81) Pulse Ox 95 92 93 91 O2 Delivery Nasal Cannula Nasal Cannula Room Air Nasal Cannula O2 Flow Rate 1.00 1.00 0.50 08/11/21 08:33 O2 Delivery Nasal Cannula O2 Flow Rate 1.00 08/11/21 00:00 Intake Total 1450 ml Output Total 1275 ml Balance 175 ml Capillary Refill : Less Than 3 Seconds Constitutional: AAO x 3, well-developed, well-nourished HEENT: PERRL, hearing is well preserved, oral hygience is good Neck: full range of motion; No carotid bruit; carotid pulses are 2 + bilaterally Respiratory: No accessory muscle use, No respiratory distress; chest expansion is symmetric, chest is bilaterally symmetric, lungs clear to auscultation Cardiovascular: regular rate-rhythm; No JVD; S1 and S2 Gastrointestinal: No tender; soft; No guarding; audible bowel sounds Extremities: no lower extremity edema bilateral Skin: No rash on exposed areas, No ulcerations on exposed areas Lymphatic: no adenopathy (neck, axilla or groin) Data Review Labs Laboratory Tests 08/11/21 04:59: White Blood Count 8.1, Red Blood Count 2.59L, Hemoglobin 7.4L, Hematocrit 23L, Mean Corpuscular Volume 87, Mean Corpuscular Hemoglobin 29, Mean Corpuscular Hemoglobin Concent 33, Red Cell Distribution Width 17.4H, Platelet Count 260, Mean Platelet Volume 10.3, Immature Granulocyte % (Auto) 0, Neutrophils (%) (Auto) 67, Lymphocytes (%) (Auto) 17, Monocytes (%) (Auto) 10, Eosinophils (%) (Auto) 5, Basophils (%) (Auto) 1, Neutrophils # (Auto) 5.4, Lymphocytes # (Auto) 1.4, Monocytes # (Auto) 0.8, Eosinophils # (Auto) 0.4H, Basophils # (Auto) 0.1, Immature Granulocyte # (Auto) 0.0, Sodium Level 139, Potassium Level 3.5L, Chloride Level 104, Carbon Dioxide Level 25, Anion Gap 10, Blood Urea Nitrogen 10, Creatinine 0.70, Estimat Glomerular Filtration Rate 94, BUN/Creatinine Ratio 14, Glucose Level 89, Calcium Level 8.0L, Corrected Calcium 9.0, Total Bilirubin 0.4, Aspartate Amino Transf (AST/SGOT) 16, Alanine Aminotransferase (ALT/SGPT) 13, Alkaline Phosphatase 67, Total Protein 4.9L, Albumin 2.7L Radiology NAME: [facility] REC#: [id number] PT STATUS: ADM IN : 1945 PHYSICIAN: DALY WYATT MD ADMIT DATE: 08/09/21/ICU Signed Date of Exam:08/09/21 CT ABDOMEN/PELVIS W PROCEDURE: CT abdomen and pelvis with contrast. TECHNIQUE: Multiple contiguous axial images were obtained through the abdomen and pelvis after administration of intravenous contrast. Auto Exposure Controls were utilized during the CT exam to meet ALARA standards for radiation dose reduction. All CT scans use one or more of the following dose optimizing techniques: automated exposure control, MA and/or KvP adjustment based on patient size and exam type or iterative reconstruction. INDICATION: Diarrhea and bloody stools Images through the lower thorax reveal multiple nonacute right rib fractures. Prominent interstitial markings in the lung bases could be due to scarring. There is no focal hepatic or gallbladder abnormality. There is mild prominence of extrahepatic biliary tree without evidence of calculus. There is also dilatation of the proximal pancreatic duct without stone or discrete mass identified. Spleen is unremarkable in appearance. There is small hiatal hernia. Adrenal glands are unremarkable. There are several renal cortical cysts, larger on the left. There are several nonobstructing bilateral renal calculi. There is no evidence of ureteric stone. There are numerous calculi present within the left colon without significant pericolonic inflammation. No abscess is identified. There is mild fluid distention of the colon artifact from right hip hardware limits assessment of the pelvis. Unopacified bladder appears to be normal. There is extension of fat into the right inguinal canal. No organized fluid collection or focal inflammation is identified. There is moderate aortoiliac atherosclerotic calcification with mild lumbar spondylosis. IMPRESSION: There is left colonic diverticular disease without evidence of active inflammation. There is mild herniation of fat into the right inguinal canal. There is mild biliary ductal and pancreatic ductal dilatation without evidence of calculus or obstructing mass identified. Dictated by: Dictated on workstation # [id number] Dict: 08/09/21914 Trans: 08/09/211707 CVB [id number] Interpreted by: BRENT BURGOS MD Electronically signed by: BRENT BURGOS MD 08/09/21 5429 A/P-Cardiology Assessment/Admission Diagnosis GIB - management per surgical/medical services Sinus node dysfunction: A Fib with a slow vent response alternating with sinus rhythm with trifascicular block in June 2021 - HR improved following cessation of Amiodarone, Dig and Coreg Anemia - D/t GIB - management per medical/surgical services H/O Upper endoscopy by Dr Childs on 06/10/21: Hiatal Hernia; Duodenal Diverticula; Tortuous distal Esophagus; no active bleed reported Acute diastolic CHF - Echo of 06/08/21: LVEF 55-65%, dilated atria, mild to mod conc LVH, PASP 40-45 mmHg CAD - h/o CABG [address] Green at [facility] in [place], [place] PAF - OAC with warfarin until June 2021, on Eliquis currently - currently being held d/t GIB PAD - reports h/o bilat fem-pop (which he reports both have failed) - managed by Dr. Green at [facility] in [place], [place] HTN HLD - managed by PCP Abnormal ECG. - ECG of 06/07/21: A Fib with a relatively slow vent response, RBBB, LAFB Discussion and Recomendations GIB - management per medical/surgical services Eliquis currently being held d/t GIB. Ok to hold Eliquis until source of bleeding is determined and treated. He has a known h/o PAF and being off OAC places him at increased risk of stroke. We have discussed this with him and he verbalizes understanding. Advise OAC be resume YASH to reduce risk of stroke Currently in SR Monitor lab closely Anemia - H/H improving following transfusions - management per medical/surgical services Further recs will be based on his hospital course We would like to thank medical services for this consult I have spoken with Dr. Boudreaux this morning Clinical Quality Measures DVT/VTE Risk/Contraindication: Contraindications-Pharm: Pt at low risk Other: GI bleed JALEESA GARZON August 10, 2021 08:10
[2021-08-10] MEDS ORDERED: polyethylene glycoL POWDER 17 GM (MIRALAX) PACK PO NR (08:55)
[2021-08-10] MEDS ORDERED: PANTOPRAZOLE 40 MG (PROTONIX) VIAL IV SCH (09:00)
--- NOTE | 2021-08-10 09:07 | Tele-ICU Progress Note ---
Subjective Date Seen by a Provider: August 10, 2021 Time Seen by a Provider: 07:35 Subjective/Events-last exam This virtual visit was conducted using real time audio/video. Thank you for asking us to see this patient for BRBPR with low BP in ER. Recent events: colonoscopy with biopsies 1 recently 1 wk ago. On Eliquis for afib. PMH: COPD on 1 L home O2, afib on Eliquis, HL, HTN, CABG/stent, PAD, hypothy., RILEY on CPAP, CKD, TAKOTNA. PE: VSS. Appears comfortable on camera. HEENT: No obvious masses, adenopathy or JVD. Chest: clear to auscultation. CV: RRR S1 S2 No murmur or added sounds. Abd: Non-tender. Bowel sounds Y. : Unremarkable. Multani N. CUSTOMER ENGAGEMENT SPECIALIST/psychiatric: Grossly intact. No obvious focal findings. Extremities: No edema. Capillary refill < 3 seconds. Skin: unremarkable. Results: Elevated , BUN 20 . Decreased Hb 8.6. K 3.4. CTA unremarkable. Available chart/ vitals / labs / images reviewed. Video assessment done using teleICU camera, rest of exam as per RN. A/P: Critical Care: critically ill patient. Cont. IVF, PPI, PRBCs PRN. PRN duonebs w COPD history. Replace K. Discussed with LIZ Lemus. Asked RN to reach out to eICU if any questions or concerns later. Time spent with patient/coordination of care with other health professionals (mins): 15 Sepsis Event Evaluation Height, Weight, BMI Height: '" Weight: lbs. oz. kg; 28.79 BMI Method: Exam Exam Patient acknowledged, consented, and participated in this virtual visit which was conducted using real time audio/video Vital Signs Date Time Temp Pulse Resp B/P (MAP) Pulse Ox O2 Delivery O2 Flow Rate FiO2 08/10/21 08:47 Nasal Cannula 3.00 08/10/21 08:00 36.8 08/10/21 07:00 85 08/10/21 06:39 98 Nasal Cannula 3.00 08/10/21 06:00 79 14 153/90 97 Nasal Cannula 1.00 08/10/21 05:00 76 17 146/68 99 Nasal Cannula 1.00 08/10/21 04:00 Nasal Cannula 3.00 08/10/21 04:00 36.8 08/10/21 04:00 87 17 166/70 93 Nasal Cannula 1.00 08/10/21 03:00 79 16 146/65 98 Nasal Cannula 1.00 08/10/21 02:11 96 Nasal Cannula 1.00 08/10/21 02:00 94 14 134/89 96 Nasal Cannula 1.00 08/10/21 01:00 80 16 163/99 98 Nasal Cannula 1.00 08/10/21 01:00 90 08/10/21 00:00 82 116/71 98 Nasal Cannula 1.00 08/10/21 00:00 Nasal Cannula 3.00 08/09/21 23:45 36.9 88 21 114/63 98 Nasal Cannula 3.00 08/09/21 23:45 36.9 08/09/21 23:30 37.2 91 20 133/69 100 Nasal Cannula 3.00 08/09/21 23:00 87 131/71 93 Nasal Cannula 1.00 08/09/21 22:43 36.9 08/09/21 22:00 98 147/75 96 Nasal Cannula 1.00 08/09/21 21:37 96 Nasal Cannula 1.00 08/09/21 21:00 90 124/49 95 Nasal Cannula 1.00 08/09/21 20:32 36.9 92 20 114/77 97 Nasal Cannula 1.00 08/09/21 20:17 36.6 92 22 127/50 96 Nasal Cannula 1.00 08/09/21 20:00 109 127/50 95 Nasal Cannula 1.00 08/09/21 20:00 Nasal Cannula 1.00 08/09/21 19:58 36.6 08/09/21 19:00 106 08/09/21 19:00 106 100/64 90 Nasal Cannula 1.00 08/09/21 18:31 99 Nasal Cannula 1.00 08/09/21 18:00 103 97/76 100 Nasal Cannula 1.00 08/09/21 17:00 105 12 123/69 96 Nasal Cannula 1.00 08/09/21 16:00 88 11 123/67 100 Nasal Cannula 1.00 08/09/21 15:53 36.4 08/09/21 15:15 36.5 92 91 28 08/09/21 15:15 36.5 91 16 106/57 92 Nasal Cannula 1.00 08/09/21 15:03 36.5 92 14 106/57 91 Nasal Cannula 1.00 08/09/21 15:00 92 16 106/57 95 Nasal Cannula 1.00 08/09/21 13:41 36.0 89 13 129/88 95 Room Air 08/09/21 13:40 95 Room Air 08/09/21 13:38 101 08/09/21 12:55 80 16 106/64 98 Room Air I & O 08/10/21 07:00 Intake Total 2610 ml Output Total 950 ml Balance 1660 ml Height & Weight Height: '" Weight: lbs. oz. kg; 28.79 BMI Method: General Appearance: WD/WN, Anxious, Chronically ill, Mild Distress HEENT: PERRL/EOMI, Normal ENT Inspection, Pharynx Normal Neck: Full Range of Motion, Normal Inspection, Non Tender, Supple, Carotid Bruit Respiratory: Chest Non Tender, Lungs Clear, Normal Breath Sounds, No Accessory Muscle Use, No Respiratory Distress, Decreased Breath Sounds Cardiovascular: Regular Rate, Rhythm, No Edema, No Gallop, No JVD, No Murmur, Normal Peripheral Pulses, Tachycardia Capillary Refill: Less Than 3 Seconds Peripheral Pulses: 1+ Dorsalis Pedis (R) (See free text), 1+ Left Dors-Pedis (L) Gastrointestinal: non tender, soft, no organomegaly, hernia (b/l inguinal hernia R>L, umbilical/incisional hernia) Extremity: Normal Capillary Refill, Normal Inspection, Normal Range of Motion, Non Tender, No Calf Tenderness, No Pedal Edema Neurologic/Psychiatric: Alert, Oriented x3, No Motor/Sensory Deficits, Normal Mood/Affect Skin: Normal Color, Warm/Dry Lymphatic: No Adenopathy Results Lab Laboratory Tests 08/09/21 08:00 08/09/21 19:02 08/10/21 03:34 Assessment/Plan Assessment/Plan See free text. Critical Care: Critically Ill Patient CHRISTOPHER BHANDARI MD August 10, 2021 09:07
[2021-08-10] MEDS: PANTOPRAZOLE 40 MG (PROTONIX) TAB PO SCH (09:13)
[2021-08-10] MEDS: DOCUSATE SODIUM 100 MG (COLACE) CAP PO SCH ×2 (09:22→20:06)
[2021-08-10] MEDS: SENNOSIDES 8.6 MG (SENOKOT) TAB PO SCH ×2 (09:22→20:06)
[2021-08-10] MEDS: APAP 300 MG/CODEINE 30 MG (TYLENOL #3) TAB PO PRN ×3 (09:22→21:38)
[2021-08-10 11:22] VITALS: BP 159/70
--- NOTE | 2021-08-10 11:31 | Occupational Therapy Eval ---
OT Evaluation-General/PLF Medical Diagnosis Admission Date August 09, 2021 at 11:48 Medical Diagnosis: GI bleed, hypotension Onset Date: August 09, 2021 Therapy Diagnosis Therapy Diagnosis: decreased ADL status Precautions Precautions/Isolations: Standard Precautions Referral Physician: Janusz Carmona Reason: Evaluation/Treatment Medical History Pertinent Medical History: Atrial Fib, Arthritis, CABG, CAD, HTN Additional Medical History afib, PVD s/p bypasses, CABG, HTN, CAD, renal failure, hypothyroidism new diagnosis of RILEY on CPAP Current History ED c/o bright red blood per stool Social History Home: Multilevel Current Living Status: Spouse Entry Into Home: Level Entry Steps Inside Home: 13 Pt indicates when you walk in the door, you have to go up 13 steps to main level where living room, bedrooms, bathrooms located. ADL-Prior Level of Function SCALE: Activities may be completed with or without assistive devices. 8-Jgvugvbwcg-khbmcrh completes the activity by him/herself with no assistance from a helper. 5-Set-up or Clean-up Assistance-helper sets up or cleans up; patient completes activity. Sprague assists only prior to or following the activity. 4-Supervision or Touching Assistance-helper provides verbal cues and/or ernst angie/steadying and/or contact guard assistance as patient completes activity. Assistance may be provided throughout the activity or intermittently. 3-Partial/Moderate Assistance-helper does LESS THAN HALF the effort. Sprague lifts, holds or supports trunk or limbs, but provides less than half the effort. 2-Substantial/Maximal Assistance-helper does MORE THAN HALF the effort. Sprague lifts or holds trunk or limbs and provides more than half the effort. 3-Cnsanzwlr-ybnpeo does ALL the effort. Patient does none of the effort to complete the activity. Or, the assistance of 2 or more helpers is required for the patient to complete the activity. If activity was not attempted, code reason: 7-Patient Refused. 9-Not Applicable-not attempted and the patient did not perform the activity before the current illness, exacerbation or injury. 10-Not Attempted due to Environmental Limitations-(lack of equipment, weather restraints, etc.). 88-Not Attempted due to Medical Conditions or Safety Concerns. ADL PLOF Comments Pt reports IND with ADLs at PLOF, using walker. he has had increased difficulty with raising arms overhead and washing his head due to stress fracture in his back. He has also had difficulty with LB dressing due to pain in back Self Care: Independent Functional Cognition: Independent DME/Equipment: Bath Chair, Tub/Shower OT Current Status Subjective Pt in bed, reports pain in back but did not verbalize pain rating. Pt indicates he plans on discharging tomorrow morning around 9 am due to an appt in [place] regarding stress fracture in his back. Mental Status/Objective Patient Orientation: Person, Place, Situation Attachments: Oxygen Current Upper Extremity ROM Decreased due to back pain Upper Extremity Strength not formally tested due to stress fracture in back and back pain. ADL-Treatment Eating (QC): 6 Toileting Hygiene (QC): 6 Other Treatments Pt in bed, agreeable to OT tx. Pt able to transfer supine to sit EOB independently. OT educated pt on purpose and benefit of OT, he verbalized understanding. Pt reports he has been getting up to BSC independently, able to use urinal (assist to empty only). Pt plans on going to an appointment tomorrow regarding stress fracture in his back, he is unsure what the plan will be regarding surgery or conservative management. Pt doesn't feel like he will make much progress in mobility/self care until his back heals and is less painful. OT educated pt on OT POC while he is admitted to hospital, he verbalized understanding. OT also educated pt on bath bench vs bath chair if he has difficulty getting in/out of bath tub. Post tx, pt in bed, call light in reach and all needs met. Education OT Patient Education: Correct positioning, Energy conservation, Modified ADL techniques, Progress toward Goal/Update tx plan, Purpose of tx/functional activities, Rehab process Teaching Recipient: Patient Teaching Methods: Discussion Response to Teaching: Verbalize Understanding OT Director Of Purchasing Goals Director Of Purchasing Goals Time Frame: August 18, 2021 Eating (QC): 6 Oral Hygiene (QC): 6 Toileting Hygiene (QC): 6 Shower/Bathe Self (QC): 4 Upper Body Dressing (QC): 5 Lower Body Dressing (QC): 4 On/Off Footwear (QC): 4 Additional Goals: 1-Demonstrate ADL Tasks, 2-Verbalize Understanding, 3- ImproveStrength/Dilip 1=Demonstrate adherence to instructed precautions during ADL tasks. 2=Patient will verbalize/demonstrate understanding of assistive devices/modifications for ADL. 3=Patient will improve strength/tolerance for activity to enable patient to perform ADL's. OT Education/Plan Problem List/Assessment Assessment: Decreased Activ Tolerance, Decreased UE Strength, Impaired Funct Balance, Impaired I ADL's, Impaired Self-Care Skills Discharge Recommendations Plan/Recommendations: Continue POC Treatment Plan/Plan of Care Patient would benefit from OT for education, treatment and training to promote independence in ADL's, mobility, safety and/or upper extremity function for ADL's. Plan of Care: ADL Retraining, Functional Mobility, UE Funct Exercise/Act Treatment Duration: August 18, 2021 Frequency: 3 times per week (3-5 times per week) Estimated Hrs Per Day: .25 hour per day Rehab Potential: Fair Time/GCodes Start Time: 11:10 Stop Time: 11:20 Total Time Billed (hr/min): 10 Billed Treatment Time 1CASS ADDISON OT August 10, 2021 11:31
--- NOTE | 2021-08-10 13:44 | Physical Therapy Evaluation ---
PT Evaluation-General Medical Diagnosis Admission Date August 09, 2021 at 11:48 Medical Diagnosis: GI bleed, hypotension Onset Date: August 09, 2021 Therapy Diagnosis Therapy Diagnosis: generalized weakness/debility Precautions Precautions/Isolations: Standard Precautions Referral Physician: Janusz Reason for Referral: Evaluation/Treatment Medical History Pertinent Medical History: Atrial Fib, Arthritis, CABG, CAD, HTN, Renal Insufficiency Current History ER secondary to GI bleed Reviewed History: Yes Social History Home: Multilevel Current Living Status: Spouse Entry Into Home: Level Entry PT Steps Inside Home: 13 Prior Prior Level of Function SCALE: Activities may be completed with or without assistive devices. 5-Onhlmevupo-rqejqin completes the activity by him/herself with no assistance from a helper. 5-Set-up or Clean-up Assistance-helper sets up or cleans up; patient completes activity. [place] assists only prior to or following the activity. 4-Supervision or Touching Assistance-helper provides verbal cues and/or touching/steadying and/or contact guard assistance as patient completes activity. Assistance may be provided throughout the activity or intermittently. 3-Partial/Moderate Assistance-helper does LESS THAN HALF the effort. [place] lifts, holds or supports trunk or limbs, but provides less than half the effort. 2-Substantial/Maximal Assistance-helper does MORE THAN HALF the effort. [place] lifts or holds trunk or limbs and provides more than half the effort. 4-Mwmjiwbiq-svxzbu does ALL the effort. Patient does none of the effort to complete the activity. Or, the assistance of 2 or more helpers is required for the patient to complete the activity. If activity was not attempted, code reason: 7-Patient Refused. 9-Not Applicable-not attempted and the patient did not perform the activity before the current illness, exacerbation or injury. 10-Not Attempted due to Environmental Limitations-(lack of equipment, weather restraints, etc.). 88-Not Attempted due to Medical Conditions or Safety Concerns. Bed Mobility: 6 Transfers (B,C,W/C): 6 Gait: 6 Stairs: 6 Indoor Mobility (Ambulation): Independent Stairs: Independent Prior Devices Use: Walker, Other-see list below Prior Device Use: cane PT Evaluation-Current Subjective Patient agrees to PT. Pain Numeric Pain Scale: 8 Location: Medial Location Body Site: Back Pain Description: Sharp Objective Patient Orientation: Normal For Age Attachments: Oxygen ROM/Strength ROM Lower Extremities bilateral LE WFL Strength Lower Extremities 4-/5 grossly bilateral LE Integumentary/Posture Bowel Incontinence: No Bladder Incontinence: No Posture noted leg length discrepancy with right LE shorter (patient has lift shoe) Neuromuscular (Tone, Coordination, Reflexes) grossly intact Sensory Vision: Functional Hearing: Functional Transfers Roll Left to Right (QC): 6 Sit to Lying (QC): 6 Lying to Sitting/Side of Bed(Q: 6 Sit to Stand (QC): 4 Gait Mode of Locomotion: Walk Anticipated Mode of Locomotion: Walk Walk 10 feet (QC): 4 Walk 50 ft with 2 Turns(QC): 4 Walk 150 ft (QC): 4 Distance: 150' Gait Assistive Device: FWW Comments/Gait Description slow, steady (patient has increase c/o dizziness with mobility) Balance Sitting Static: Normal Sitting Dynamic: Normal Standing Static: Fair Standing Dynamic: Fair Assessment/Needs 76 y.o. male, will be seen short term by skilled PT to address functional strength and mobility to improve current LOF to safely return to home at maximum LOF. Patient is currently limited by dizziness and functional endurance. Rehab Potential: Fair PT Supervisor Baking Goals Supervisor Baking Goals PT Supervisor Baking Goals Time Frame: August 21, 2021 Roll Left & Right (QC): 6 Sit to Lying (QC): 6 Lying-Sitting on Side/Bed(QC): 6 Sit to Stand (QC): 6 Chair/Yfs-hr-Ngfdb Xfer(QC): 6 Toilet Transfer (QC): 6 Walk 10 feet (QC): 6 Walk 50ft with 2 Turns (QC): 6 Walk 150 ft (QC): 6 PT Plan Problem List Problem List: Activity Tolerance, Functional Strength, Safety, Balance, Gait, Transfer Treatment/Plan Treatment Plan: Continue Plan of Care Treatment Plan: Education, Functional Activity Dilip, Functional Strength, Gait, Safety, Therapeutic Exercise, Transfers Treatment Duration: August 21, 2021 Frequency: 6 times per week Estimated Hrs Per Day: .25 hour per day Time/GCodes Time In: 1311 Time Out: 1326 Total Billed Treatment Time: 15 Total Billed Treatment 1 visit EVMod 15 min DARRELL PENNINGTON PT August 10, 2021 13:44
[2021-08-10] MEDS ORDERED: CYAN500T8 PO (15:10)
[2021-08-10] MEDS ORDERED: MONT-40 PO (15:10)
[2021-08-10] MEDS ORDERED: TRAM50TA3 PO (15:10)
[2021-08-10] MEDS ORDERED: DOCU100C37 PO (15:10)
[2021-08-10] MEDS ORDERED: SODI45SP9 NSEACH (15:10)
[2021-08-10] MEDS ORDERED: FEXO180T84 PO (15:10)
[2021-08-10] MEDS ORDERED: ACET-11 PO (15:10)
--- NOTE | 2021-08-10 15:42 | Progress Note - Surgery ---
Subjective Time Seen by a Provider: 13:24 Subjective/Events-last exam Pt seen and examined, denies abdominal pain and he thinks he is feeling stronger. Tolerating diet. Review of Systems General: No Chills, No Night Sweats Pulmonary: No Dyspnea, No Cough Cardiovascular: No: Chest Pain, Palpitations Gastrointestinal: No: Nausea, Vomiting, Abdominal Pain Objective Exam Vital Signs Date Time Temp Pulse Resp B/P (MAP) Pulse Ox O2 Delivery O2 Flow Rate FiO2 08/10/21 15:25 92 Nasal Cannula 1.00 08/10/21 12:32 Nasal Cannula 1.00 08/10/21 12:30 Nasal Cannula 1.00 08/10/21 11:25 36.2 82 20 131/60 95 Nasal Cannula 1.00 08/10/21 11:22 36.6 71 98 08/10/21 11:14 98 Nasal Cannula 2.00 08/10/21 10:12 36.6 71 22 159/70 98 Room Air 08/10/21 10:00 81 22 125/60 100 Nasal Cannula 1.00 08/10/21 09:00 90 15 140/98 95 Nasal Cannula 1.00 08/10/21 08:47 Nasal Cannula 3.00 08/10/21 08:00 92 13 139/71 97 Nasal Cannula 1.00 08/10/21 08:00 36.8 08/10/21 07:00 81 12 127/64 100 Nasal Cannula 1.00 08/10/21 07:00 85 08/10/21 06:39 98 Nasal Cannula 3.00 08/10/21 06:00 79 14 153/90 97 Nasal Cannula 1.00 08/10/21 05:00 76 17 146/68 99 Nasal Cannula 1.00 08/10/21 04:00 Nasal Cannula 3.00 08/10/21 04:00 36.8 08/10/21 04:00 87 17 166/70 93 Nasal Cannula 1.00 08/10/21 03:00 79 16 146/65 98 Nasal Cannula 1.00 08/10/21 02:11 96 Nasal Cannula 1.00 08/10/21 02:00 94 14 134/89 96 Nasal Cannula 1.00 08/10/21 01:00 80 16 163/99 98 Nasal Cannula 1.00 08/10/21 01:00 90 08/10/21 00:00 82 116/71 98 Nasal Cannula 1.00 08/10/21 00:00 Nasal Cannula 3.00 08/09/21 23:45 36.9 88 21 114/63 98 Nasal Cannula 3.00 08/09/21 23:45 36.9 08/09/21 23:30 37.2 91 20 133/69 100 Nasal Cannula 3.00 08/09/21 23:00 87 131/71 93 Nasal Cannula 1.00 08/09/21 22:43 36.9 08/09/21 22:00 98 147/75 96 Nasal Cannula 1.00 08/09/21 21:37 96 Nasal Cannula 1.00 08/09/21 21:00 90 124/49 95 Nasal Cannula 1.00 08/09/21 20:32 36.9 92 20 114/77 97 Nasal Cannula 1.00 08/09/21 20:17 36.6 92 22 127/50 96 Nasal Cannula 1.00 08/09/21 20:00 109 127/50 95 Nasal Cannula 1.00 08/09/21 20:00 Nasal Cannula 1.00 08/09/21 19:58 36.6 08/09/21 19:00 106 08/09/21 19:00 106 100/64 90 Nasal Cannula 1.00 08/09/21 18:31 99 Nasal Cannula 1.00 08/09/21 18:00 103 97/76 100 Nasal Cannula 1.00 08/09/21 17:00 105 12 123/69 96 Nasal Cannula 1.00 08/09/21 16:00 88 11 123/67 100 Nasal Cannula 1.00 08/09/21 15:53 36.4 I & O 08/10/21 07:00 Intake Total 2610 ml Output Total 950 ml Balance 1660 ml Capillary Refill : Less Than 3 Seconds General Appearance: No Apparent Distress, WD/WN, Anxious HEENT: PERRL/EOMI, Pharynx Normal Respiratory: Chest Non Tender, Lungs Clear, No Accessory Muscle Use, No Respiratory Distress, Decreased Breath Sounds Cardiovascular: Regular Rate, Rhythm, No Murmur Peripheral Pulses: 1+ Dorsalis Pedis (R) (See free text), 1+ Left Dors-Pedis (L) Gastrointestinal: non tender, soft, no organomegaly, hernia (b/l inguinal hernia R>L, umbilical/incisional hernia) Extremity: No Calf Tenderness, No Pedal Edema, Other (firm lump, right tibia ??calus) Neurologic/Psychiatric: Alert, Oriented x3 Skin: Normal Color, Warm/Dry Results Lab Laboratory Tests 08/09/21 19:02: Hemoglobin 6.8*L, Hematocrit 22L 08/10/21 03:34: Hemoglobin 8.6#L, Hematocrit 26L, White Blood Count 10.6, Red Blood Count 3.06L, Mean Corpuscular Volume 86, Mean Corpuscular Hemoglobin 28, Mean Corpuscular Hemoglobin Concent 33, Red Cell Distribution Width 17.4H, Platelet Count 247, Mean Platelet Volume 10.0, Immature Granulocyte % (Auto) 0, Neutrophils (%) (Auto) 68, Lymphocytes (%) (Auto) 19, Monocytes (%) (Auto) 10, Eosinophils (%) (Auto) 3, Basophils (%) (Auto) 1, Neutrophils # (Auto) 7.2, Lymphocytes # (Auto) 2.0, Monocytes # (Auto) 1.1H, Eosinophils # (Auto) 0.3, Basophils # (Auto) 0.1, Immature Granulocyte # (Auto) 0.0, Sodium Level 136, Potassium Level 3.4L, Chloride Level 100, Carbon Dioxide Level 24, Anion Gap 12, Blood Urea Nitrogen 18, Creatinine 0.84, Estimat Glomerular Filtration Rate 89, BUN/Creatinine Ratio 21, Glucose Level 96, Calcium Level 7.8L, Corrected Calcium 8.8, Total Bilirubin 1.0, Aspartate Amino Transf (AST/SGOT) 15, Alanine Aminotransferase (ALT/SGPT) 11, Alkaline Phosphatase 67, Total Protein 4.7L, Albumin 2.7L Assessment/Plan Assessment/Plan Assessment/Plan Rectal Bleed Anemia Atrial Fibrillation Pt has been transfused 3 units of PRBC's and is feeling a little stronger. H/H is holding steady. Ok to send home and I will see him as an outpt, would continue to hold blood thinners for another week. He understands this puts him at risk for stroke. Clinical Quality Measures DVT/VTE Risk/Contraindication: Contraindications-Pharm: Pt at low risk Other: GI bleed ANTONINA AU DO August 10, 2021 15:42
[2021-08-10 16:09] VITALS: BP 142/65
--- NOTE | 2021-08-10 16:51 | Consultation-Cardiology ---
HPI-Cardiology Cardiology Consultation: Date of Consultation 08/10/21 Time Seen by a Provider: 16:30 Date of Admission Attending Physician Cristy Boudreaux DO Admitting Physician Grzegorz Moncada DO Consulting Physician CB CONTRERAS MD, MA, FACP, FACC, FSCAI, CCDS HPI: Chief Complaint: GIB Mr Vazquez is a 76 yr old male admitted to ICU 5 with suspected GIB. He reports approx 1 week ago he had an endoscopy at which time he had polyp removal. He states he resumed his Eliquis post procedure. He states on Monday he developed bright red blood in his stools. He reports he felt weak and dizzy. He then came to the ED. He denies any c/o CP, palpitations, syncope, near syncope or LE swelling. He states he is feeling much better than at the time of admission. He reports his last dose of Eliquis was Monday morning. Review of Systems-Cardiology Review of Systems Constitutional: No chills, No fever; lightheadedness, malaise Eyes: No vision change Ears/Nose/Throat: No epistaxis Respiratory: As described under HPI Cardiovascular: As described under HPI Gastrointestinal: As described under HPI Genitourinary: No dysuria, No hematuria Skin: No rash on exposed areas, No ulcerations on exposed areas Psychiatric/Neurological: No anxiety, No depression, No seizure, No focal weakness, No syncope Hematologic: No bleeding abnormalities All Other Systems Reviewed Negative Unless Noted: Yes CTW-Kifttt-Ltopan Hx Patient Social History Marrital Status: Employed/Student: employed Smoking Status: Former Smoker 2nd Hand Smoke Exposure: No Have you traveled recently?: No Alcohol Use?: No Pt feels they are or have been: No Immunizations Up To Date Tetanus Booster (TDap): Unknown Date of Influenza Vaccine: Dec 22, 2020 Past Medical History PMH As described under Assessment. Family Medical History Family Medical History: He reports his father had CAD and from an [place] at age 59. Allergies and Home Medications Allergies Coded Allergies: No Known Drug Allergies (Unverified , 07/14/10) Patient Home Medication List Home Medication List Reviewed: Yes Acetaminophen with Codeine (Acetaminophen-Cod #3 Tablet) 300 Mg-30 Mg Tablet, 1 EA PO Q6 -8H PRN for PAIN-MODERATE (5-7), (Reported) Entered as Reported by: MIN HUDSON on 08/10/211509 Last Action: Reviewed Albuterol Sulfate (Albuterol Sulfate) 2.5 Mg/3 Ml Vial.neb, 2.5 MG INH QID, (Reported) Entered as Reported by: TRISTA JOYNER on 07/22/21936 Last Action: Reviewed Apixaban (Eliquis) 5 Mg Tablet, 5 MG PO BID, (Reported) Entered as Reported by: TRISTA JOYNER on 07/22/21936 Last Action: Reviewed Aspirin (Aspirin EC) 81 Mg Tablet.dr, 81 MG PO HS, (Reported) Entered as Reported by: MIN HUDSON on 06/08/21919 Last Action: Reviewed Atorvastatin Calcium (Atorvastatin Calcium) 20 Mg Tablet, 20 MG PO HS, (Reported) Entered as Reported by: MIN HUDSON on 06/08/21919 Last Action: Reviewed Cyanocobalamin (Vitamin B-12) (Vitamin B-12) 500 Mcg Tablet, 1,000 MCG PO HS, (Reported) Entered as Reported by: MIN HUDSON on 08/10/211509 Last Action: Reviewed Docusate Sodium (Docusate Sodium) 100 Mg Capsule, 100 MG PO BID, (Reported) Entered as Reported by: MIN HUDSON on 08/10/211509 Last Action: Reviewed Fexofenadine HCl (Deloris Allergy) 180 Mg Tablet, 180 MG PO DAILY, (Reported) Entered as Reported by: MIN HUDSON on 08/10/211509 Last Action: Reviewed Furosemide (Furosemide) 40 Mg Tablet, 40 MG PO DAILY, (Reported) Entered as Reported by: TRISTA JOYNER on 07/22/21936 Last Action: Reviewed Guaifenesin (Mucinex) 600 Mg Tab.er.12h, 600 MG PO HS, (Reported) Entered as Reported by: TRISTA JOYNER on 07/22/21936 Last Action: Reviewed Levothyroxine Sodium (Levothyroxine Sodium) 25 Mcg Tablet, 25 MCG PO DAILY, (Reported) Entered as Reported by: MIN HUDSON on 06/08/21919 Last Action: Reviewed Montelukast Sodium (Montelukast Sodium) 10 Mg Tablet, 10 MG PO HS, (Reported) Entered as Reported by: MIN HUDSON on 08/10/211509 Last Action: Reviewed Multivitamin (Multivitamin) 1 Each Tablet, 1 EACH PO HS, (Reported) Entered as Reported by: MIN HUDSON on 06/08/21919 Last Action: Reviewed Pantoprazole Sodium (Pantoprazole Sodium) 40 Mg Tablet.dr, 40 MG PO DAILY, (Reported) Entered as Reported by: TRISTA JOYNER on 07/22/21936 Last Action: Reviewed Sodium Chloride (Saline Nose [place]) 0.65 % [place], 1 SPRAY NSEACH UD PRN for DRY NOSE, (Reported) Entered as Reported by: MIN HUDSON on 08/10/211509 Last Action: Reviewed Tramadol HCl (Tramadol HCl) 50 Mg Tablet, 50 MG PO DAILY PRN for PAIN-MILD (1- 4), (Reported) Entered as Reported by: MIN HUDSON on 08/10/211509 Last Action: Reviewed Physical Exam-Cardiology Physical Exam Vital Signs/I&O 08/10/21 08/10/21 08/10/21 08/10/21 05:00 06:00 06:39 07:00 Pulse 76 79 85 Resp 17 14 B/P (MAP) 146/68 153/90 Pulse Ox 99 97 98 O2 Delivery Nasal Cannula Nasal Cannula Nasal Cannula O2 Flow Rate 1.00 1.00 3.00 08/10/21 08/10/21 08/10/21 08/10/21 07:00 08:00 08:00 08:47 Temp 36.8 Pulse 81 92 Resp 12 13 B/P (MAP) 127/64 139/71 Pulse Ox 100 97 O2 Delivery Nasal Cannula Nasal Cannula Nasal Cannula O2 Flow Rate 1.00 1.00 3.00 08/10/21 08/10/21 08/10/21 08/10/21 09:00 10:00 10:12 11:14 Temp 36.6 Pulse 90 81 71 Resp 22 B/P (MAP) 140/98 125/60 159/70 Pulse Ox 95 100 98 98 O2 Delivery Nasal Cannula Nasal Cannula Room Air Nasal Cannula O2 Flow Rate 1.00 1.00 2.00 08/10/21 08/10/21 08/10/21 08/10/21 11:22 11:25 12:30 12:32 Temp 36.6 36.2 Pulse 71 82 Resp 20 B/P (MAP) 131/60 Pulse Ox 98 95 O2 Delivery Nasal Cannula Nasal Cannula Nasal Cannula O2 Flow Rate 1.00 1.00 1.00 08/10/21 08/10/21 15:25 16:09 Temp 36.0 Pulse 86 Resp 18 B/P (MAP) 142/65 (90) Pulse Ox 92 94 O2 Delivery Nasal Cannula Nasal Cannula O2 Flow Rate 1.00 1.00 08/10/21 00:00 Intake Total 1960 ml Balance 1960 ml Capillary Refill : Less Than 3 Seconds Constitutional: AAO x 3, well-developed, well-nourished HEENT: PERRL, hearing is well preserved, oral hygience is good Neck: full range of motion; No carotid bruit; carotid pulses are 2 + bilaterally Respiratory: No accessory muscle use, No respiratory distress; chest expansion is symmetric, chest is bilaterally symmetric, lungs clear to auscultation Cardiovascular: regular rate-rhythm; No JVD; S1 and S2 Gastrointestinal: No tender; soft; No guarding; audible bowel sounds Extremities: no lower extremity edema bilateral Skin: No rash on exposed areas, No ulcerations on exposed areas Lymphatic: no adenopathy (neck, axilla or groin) Data Review Labs Laboratory Tests 08/09/21 19:02: Hemoglobin 6.8*L, Hematocrit 22L 08/10/21 03:34: Hemoglobin 8.6#L, Hematocrit 26L, White Blood Count 10.6, Red Blood Count 3.06L, Mean Corpuscular Volume 86, Mean Corpuscular Hemoglobin 28, Mean Corpuscular Hemoglobin Concent 33, Red Cell Distribution Width 17.4H, Platelet Count 247, Mean Platelet Volume 10.0, Immature Granulocyte % (Auto) 0, Neutrophils (%) (Auto) 68, Lymphocytes (%) (Auto) 19, Monocytes (%) (Auto) 10, Eosinophils (%) (Auto) 3, Basophils (%) (Auto) 1, Neutrophils # (Auto) 7.2, Lymphocytes # (Auto) 2.0, Monocytes # (Auto) 1.1H, Eosinophils # (Auto) 0.3, Basophils # (Auto) 0.1, Immature Granulocyte # (Auto) 0.0, Sodium Level 136, Potassium Level 3.4L, Chloride Level 100, Carbon Dioxide Level 24, Anion Gap 12, Blood Urea Nitrogen 18, Creatinine 0.84, Estimat Glomerular Filtration Rate 89, BUN/Creatinine Ratio 21, Glucose Level 96, Calcium Level 7.8L, Corrected Calcium 8.8, Total Bilirubin 1.0, Aspartate Amino Transf (AST/SGOT) 15, Alanine Aminotransferase (ALT/SGPT) 11, Alkaline Phosphatase 67, Total Protein 4.7L, Albumin 2.7L A/P-Cardiology Assessment/Admission Diagnosis GIB - management per surgical/medical services Sinus node dysfunction: A Fib with a slow vent response alternating with sinus rhythm with trifascicular block in June 2021 - HR improved following cessation of Amiodarone, Dig and Coreg Anemia - D/t GIB - management per medical/surgical services H/O Upper endoscopy by Dr Childs on 06/10/21: Hiatal Hernia; Duodenal Diverticula; Tortuous distal Esophagus; no active bleed reported Acute diastolic CHF - Echo of 06/08/21: LVEF 55-65%, dilated atria, mild to mod conc LVH, PASP 40-45 mmHg CAD - h/o CABG [address] Green at [facility] in [place], [place] PAF - OAC with warfarin until June 2021, on Eliquis currently - currently being h eld d/t GIB PAD - reports h/o bilat fem-pop (which he reports both have failed) - managed by Dr. Green at [facility] in [place], [place] HTN HLD - managed by PCP Abnormal ECG. - ECG of 06/07/21: A Fib with a relatively slow vent response, RBBB, LAFB Discussion and Recomendations GIB - management per medical/surgical services Eliquis currently being held d/t GIB. Ok to hold Eliquis until source of bleeding is determined and treated. He has a known h/o PAF and being off OAC places him at increased risk of stroke. We have discussed this with him and he verbalizes understanding. Advise OAC be resume YASH to reduce risk of stroke Currently in SR Monitor lab closely Anemia - H/H improving following transfusions - management per medical/surgical services Further recs will be based on his hospital course We would like to thank medical services for this consult Clinical Quality Measures DVT/VTE Risk/Contraindication: Contraindications-Pharm: Pt at low risk Other: GI bleed CB CONTRERAS MD FACP FAC CCDS August 10, 2021 16:51
[2021-08-10 20:00] VITALS: BP 119/55
[2021-08-10] MEDS ORDERED: polyethylene glycoL POWDER 17 GM (MIRALAX) PACK PO SCH (21:00)
[2021-08-10 23:44] VITALS: BP 112/55
[2021-08-11 04:00] VITALS: BP 104/57
[2021-08-11 05:20] LABS: BASOPHILS # (AUTO) 0.1 10^3/uL (0.0-0.1); BASOPHILS % (AUTO) 1 % (0-10); EOSINOPHILS # (AUTO) 0.4 10^3/uL (0.0-0.3); EOSINOPHILS % (AUTO) 5 % (0-10); HEMATOCRIT 23 % (40-54); HEMOGLOBIN 7.4 g/dL (13.3-17.7); LYMPHOCYTES # (AUTO) 1.4 10^3/uL (1.0-4.0); LYMPHOCYTES % (AUTO) 17 % (12-44); MEAN CORPUSCULAR HEMOGLOBIN 29 pg (25-34); MEAN CORPUSCULAR HGB CONC 33 g/dL (32-36); MEAN CORPUSCULAR VOLUME 87 fL (80-99); MEAN PLATELET VOLUME 10.3 fL (9.0-12.2); MONOCYTES # (AUTO) 0.8 10^3/uL (0.0-1.0); MONOCYTES % (AUTO) 10 % (0-12); NEUTROPHILS # (AUTO) 5.4 10^3/uL (1.8-7.8); NEUTROPHILS % (AUTO) 67 % (42-75); PLATELET COUNT 260 10^3/uL (130-400); WHITE BLOOD COUNT 8.1 10^3/uL (4.3-11.0)
[2021-08-11 05:26] LABS: ALBUMIN 2.7 GM/DL (3.2-4.5); POTASSIUM 3.5 MMOL/L (3.6-5.0)
[2021-08-11 05:29] LABS: TOTAL PROTEIN 4.9 GM/DL (6.4-8.2)
[2021-08-11 05:31] LABS: BILIRUBIN,TOTAL 0.4 MG/DL (0.1-1.0)
[2021-08-11 05:33] LABS: CREATININE SERUM 0.7 MG/DL (0.60-1.30)
[2021-08-11] MEDS ORDERED: IRON SUCROSE 200 MG/10 ML (VENOFER) VIAL IV ONE (05:45)
--- NOTE | 2021-08-11 05:45 | Discharge Summary ---
Diagnosis/Chief Complaint Date of Admission August 09, 2021 at 11:48 Date of Discharge Discharge Date: August 11, 2021 Discharge Diagnosis Assessment: Acute GI bleed 1 week following colonoscopy with polypectomy Hypotension due to hypovolemia Acute on chronic anemia requiring 3 units of packed red blood cell transfusion COPD RILEY on CPAP recent diagnosis by Dr. Coyle Atrial fibrillation CAD previous CABG Oral anticoagulation Compression fracture T6-T7 8 weeks ago due to cough History of vascular surgeries lower extremities History of alcohol and drug dependence remotely Home oxygen dependent Hypothyroidism Hypertension Hyperlipidemia Chronic kidney disease Chronic constipation Plan: Supportive care Transfuse Appreciate Dr. Childs 08/10/21: Monitor hgb DC tomorrow Discharge Summary Discharge Physical Examination Allergies: Coded Allergies: No Known Drug Allergies (Unverified , 07/14/10) Vitals & I&Os Vital Signs Date Time Temp Pulse Resp B/P (MAP) Pulse Ox O2 Delivery O2 Flow Rate FiO2 08/11/21 10:56 36.9 85 20 126/59 91 Nasal Cannula 1.00 08/09/21 15:15 28 General Appearance: Alert, Oriented X3, Cooperative Respiratory: Clear to Auscultation Cardiovascular: Regular Rate Neuro: Normal Gait, Normal Speech, Strength at 5/5 X4 Ext Psych/Mental Status: Mental Status NL Hospital Course Was the Problem List Reviewed?: Yes Pt had an uneventful but intense hospital course after he was admitted for lower GI bleed due to polypectomy a few days prior. He was maintained on Eliquis anticoagulation. Given transfusion and ultimately hemoglobin remained at his stable 7.4. He was given IV iron and he will be having close follow up at my office with labs checked on Monday. He will see Dr. Ferreira for kyphoplasty today at 1100. He will hold Eliquis for a full 7 days. Labs (last 24 hrs) Laboratory Tests 08/09/21 08:00: White Blood Count 11.3H, Red Blood Count 2.86L, Hemoglobin 7.6L, Hematocrit 25L, Mean Corpuscular Volume 89, Mean Corpuscular Hemoglobin 27, Mean Corpuscular Hemoglobin Concent 30L, Red Cell Distribution Width 18.3H, Platelet Count 337, Mean Platelet Volume 9.9, Immature Granulocyte % (Auto) 1, Neutrophils (%) (Auto) 80H, Lymphocytes (%) (Auto) 10L, Monocytes (%) (Auto) 7, Eosinophils (%) (Auto) 2, Basophils (%) (Auto) 0, Neutrophils # (Auto) 9.0H, Lymphocytes # (Auto) 1.2, Monocytes # (Auto) 0.8, Eosinophils # (Auto) 0.2, Basophils # (Auto) 0.1, Immature Granulocyte # (Auto) 0.1, Prothrombin Time 14.9H, INR Comment 1.1, Activated Partial Thromboplast Time 33, Sodium Level 137, Potassium Level 3.8, Chloride Level 97L, Carbon Dioxide Level 26, Anion Gap 14, Blood Urea Nitrogen 20H, Creatinine 0.86, Estimat Glomerular Filtration Rate 89, BUN/Creatinine Ratio 23, Glucose Level 109H, Calcium Level 8.6, Corrected Calcium 9.2, Iron Level 22L, Total Bilirubin 0.3, Aspartate Amino Transf (AST/SGOT) 11, Alanine Aminotransferase (ALT/SGPT) 12, Alkaline Phosphatase 78, Total Protein 5.8L, Albumin 3.2, Vitamin B12 Level 1124H 08/09/21 19:02: Hemoglobin 6.8*L, Hematocrit 22L 08/10/21 03:34: White Blood Count 10.6, Red Blood Count 3.06L, Hemoglobin 8.6#L, Hematocrit 26L, Mean Corpuscular Volume 86, Mean Corpuscular Hemoglobin 28, Mean Corpuscular Hemoglobin Concent 33, Red Cell Distribution Width 17.4H, Platelet Count 247, Mean Platelet Volume 10.0, Immature Granulocyte % (Auto) 0, Neutrophils (%) (Auto) 68, Lymphocytes (%) (Auto) 19, Monocytes (%) (Auto) 10, Eosinophils (%) (Auto) 3, Basophils (%) (Auto) 1, Neutrophils # (Auto) 7.2, Lymphocytes # (Auto) 2.0, Monocytes # (Auto) 1.1H, Eosinophils # (Auto) 0.3, Basophils # (Auto) 0.1, Immature Granulocyte # (Auto) 0.0, Sodium Level 136, Potassium Level 3.4L, Chloride Level 100, Carbon Dioxide Level 24, Anion Gap 12, Blood Urea Nitrogen 18, Creatinine 0.84, Estimat Glomerular Filtration Rate 89, BUN/Creatinine Ratio 21, Glucose Level 96, Calcium Level 7.8L, Corrected Calcium 8.8, Total Bilirubin 1.0, Aspartate Amino Transf (AST/SGOT) 15, Alanine Aminotransferase (ALT/SGPT) 11, Alkaline Phosphatase 67, Total Protein 4.7L, Albumin 2.7L 08/11/21 04:59: White Blood Count 8.1, Red Blood Count 2.59L, Hemoglobin 7.4L, Hematocrit 23L, Mean Corpuscular Volume 87, Mean Corpuscular Hemoglobin 29, Mean Corpuscular Hemoglobin Concent 33, Red Cell Distribution Width 17.4H, Platelet Count 260, Mean Platelet Volume 10.3, Immature Granulocyte % (Auto) 0, Neutrophils (%) (Auto) 67, Lymphocytes (%) (Auto) 17, Monocytes (%) (Auto) 10, Eosinophils (%) (Auto) 5, Basophils (%) (Auto) 1, Neutrophils # (Auto) 5.4, Lymphocytes # (Auto) 1.4, Monocytes # (Auto) 0.8, Eosinophils # (Auto) 0.4H, Basophils # (Auto) 0.1, Immature Granulocyte # (Auto) 0.0, Sodium Level 139, Potassium Level 3.5L, Chloride Level 104, Carbon Dioxide Level 25, Anion Gap 10, Blood Urea Nitrogen 10, Creatinine 0.70, Estimat Glomerular Filtration Rate 94, BUN/Creatinine Ratio 14, Glucose Level 89, Calcium Level 8.0L, Corrected Calcium 9.0, Total Bilirubin 0.4, Aspartate Amino Transf (AST/SGOT) 16, Alanine Aminotransferase (ALT/SGPT) 13, Alkaline Phosphatase 67, Total Protein 4.9L, Albumin 2.7L Pending Labs Laboratory Tests 08/09/21 08:00: White Blood Count 11.3, Red Blood Count 2.86, Hemoglobin 7.6, Hematocrit 25, Mean Corpuscular Volume 89, Mean Corpuscular Hemoglobin 27, Mean Corpuscular Hemoglobin Concent 30, Red Cell Distribution Width 18.3, Platelet Count 337, Mean Platelet Volume 9.9, Immature Granulocyte % (Auto) 1, Neutrophils (%) (Auto) 80, Lymphocytes (%) (Auto) 10, Monocytes (%) (Auto) 7, Eosinophils (%) (Auto) 2, Basophils (%) (Auto) 0, Neutrophils # (Auto) 9.0, Lymphocytes # (Auto) 1.2, Monocytes # (Auto) 0.8, Eosinophils # (Auto) 0.2, Basophils # (Auto) 0.1, Immature Granulocyte # (Auto) 0.1, Prothrombin Time 14.9, INR Comment 1.1, Activated Partial Thromboplast Time 33, Sodium Level 137, Potassium Level 3.8, Chloride Level 97, Carbon Dioxide Level 26, Anion Gap 14, Blood Urea Nitrogen 20, Creatinine 0.86, Estimat Glomerular Filtration Rate 89, BUN/Creatinine Ratio 23, Glucose Level 109, Calcium Level 8.6, Corrected Calcium 9.2, Iron Level 22, Total Bilirubin 0.3, Aspartate Amino Transf (AST/SGOT) 11, Alanine Aminotransferase (ALT/SGPT) 12, Alkaline Phosphatase 78, Total Protein 5.8, Albumin 3.2, Vitamin B12 Level 1124 08/09/21 19:02: Hemoglobin 6.8, Hematocrit 22 08/10/21 03:34: White Blood Count 10.6, Red Blood Count 3.06, Hemoglobin 8.6, Hematocrit 26, Mean Corpuscular Volume 86, Mean Corpuscular Hemoglobin 28, Mean Corpuscular Hemoglobin Concent 33, Red Cell Distribution Width 17.4, Platelet Count 247, Mean Platelet Volume 10.0, Immature Granulocyte % (Auto) 0, Neutrophils (%) (Auto) 68, Lymphocytes (%) (Auto) 19, Monocytes (%) (Auto) 10, Eosinophils (%) (Auto) 3, Basophils (%) (Auto) 1, Neutrophils # (Auto) 7.2, Lymphocytes # (Auto) 2.0, Monocytes # (Auto) 1.1, Eosinophils # (Auto) 0.3, Basophils # (Auto) 0.1, Immature Granulocyte # (Auto) 0.0, Sodium Level 136, Potassium Level 3.4, Chloride Level 100, Carbon Dioxide Level 24, Anion Gap 12, Blood Urea Nitrogen 18, Creatinine 0.84, Estimat Glomerular Filtration Rate 89, BUN/Creatinine Ratio 21, Glucose Level 96, Calcium Level 7.8, Corrected Calcium 8.8, Total Bilirubin 1.0, Aspartate Amino Transf (AST/SGOT) 15, Alanine Aminotransferase (ALT/SGPT) 11, Alkaline Phosphatase 67, Total Protein 4.7, Albumin 2.7 08/11/21 04:59: White Blood Count 8.1, Red Blood Count 2.59, Hemoglobin 7.4, Hematocrit 23, Mean Corpuscular Volume 87, Mean Corpuscular Hemoglobin 29, Mean Corpuscular Hemoglobin Concent 33, Red Cell Distribution Width 17.4, Platelet Count 260, Mean Platelet Volume 10.3, Immature Granulocyte % (Auto) 0, Neutrophils (%) (Auto) 67, Lymphocytes (%) (Auto) 17, Monocytes (%) (Auto) 10, Eosinophils (%) (Auto) 5, Basophils (%) (Auto) 1, Neutrophils # (Auto) 5.4, Lymphocytes # (Auto) 1.4, Monocytes # (Auto) 0.8, Eosinophils # (Auto) 0.4, Basophils # (Auto) 0.1, Immature Granulocyte # (Auto) 0.0, Sodium Level 139, Potassium Level 3.5, Chlor audie Level 104, Carbon Dioxide Level 25, Anion Gap 10, Blood Urea Nitrogen 10, Creatinine 0.70, Estimat Glomerular Filtration Rate 94, BUN/Creatinine Ratio 14, Glucose Level 89, Calcium Level 8.0, Corrected Calcium 9.0, Total Bilirubin 0.4, Aspartate Amino Transf (AST/SGOT) 16, Alanine Aminotransferase (ALT/SGPT) 13, Alkaline Phosphatase 67, Total Protein 4.9, Albumin 2.7 Discharge Home Medications: Active Scripts Active Reported Docusate Sodium 100 Mg Capsule 100 Mg PO BID Vitamin B-12 (Cyanocobalamin (Vitamin B-12)) 500 Mcg Tablet 1,000 Mcg PO HS Deloris Allergy (Fexofenadine HCl) 180 Mg Tablet 180 Mg PO DAILY Saline Nose [place] (Sodium Chloride) 0.65 % [place] 1 Enville NSEACH UD PRN Montelukast Sodium 10 Mg Tablet 10 Mg PO HS Tramadol HCl 50 Mg Tablet 50 Mg PO DAILY PRN Acetaminophen-Cod #3 Tablet (Acetaminophen with Codeine) 300 Mg-30 Mg Tablet 1 Ea PO Q6 -8H PRN Pantoprazole Sodium 40 Mg Tablet.dr 40 Mg PO DAILY Mucinex (Guaifenesin) 600 Mg Tab.er.12h 600 Mg PO HS Furosemide 40 Mg Tablet 40 Mg PO DAILY Albuterol Sulfate 2.5 Mg/3 Ml Vial.neb 2.5 Mg INH QID Multivitamin 1 Each Tablet 1 Each PO HS Levothyroxine Sodium 25 Mcg Tablet 25 Mcg PO DAILY Atorvastatin Calcium 20 Mg Tablet 20 Mg PO HS Instructions to patient/family Please see electronic discharge instructions given to patient. Clinical Quality Measures DVT/VTE Risk/Contraindication: Contraindications-Pharm: Pt at low risk Other: GI bleed JOSE JACQUES DO August 11, 2021 05:45
[2021-08-11] MEDS: APAP 300 MG/CODEINE 30 MG (TYLENOL #3) TAB PO PRN (06:06)
[2021-08-11] MEDS: RT-ALBUTEROL/IPRATROPIUM 3 ML (DUONEB) VIAL INH SCH (07:12)
[2021-08-11 07:33] VITALS: BP 126/59
--- NOTE | 2021-08-11 09:05 | Progress Note - Cardiology ---
Cardiology SOAP Progress Note Subjective: Standing up at the bedside States he has an appt for eval for possible back surgery in [place] today No c/o CP, SOB, palpitations, abd pain Objective: I&O/Vital Signs 08/10/21 08/11/21 08/11/21 08/11/21 23:44 04:00 07:14 07:33 Temp 37.0 37.0 36.9 Pulse 89 85 85 Resp 20 20 20 B/P (MAP) 112/55 (74) 104/57 (73) 126/59 (81) Pulse Ox 95 92 93 91 O2 Delivery Nasal Cannula Nasal Cannula Room Air Nasal Cannula O2 Flow Rate 1.00 1.00 0.50 08/11/21 08:33 O2 Delivery Nasal Cannula O2 Flow Rate 1.00 08/11/21 00:00 Intake Total 1450 ml Output Total 1275 ml Balance 175 ml Constitutional: AAO x 3, well-developed, well-nourished Respiratory: No accessory muscle use, No respiratory distress; chest expansion is symmetric, chest is bilaterally symmetric, lungs clear to auscultation Cardiovascular: regular rate-rhythm; No JVD; S1 and S2 Gastrointestional: No tender; soft; No guarding; audible bowel sounds Extremities: no lower extremity edema bilateral Skin: No rash on exposed areas, No ulcerations on exposed areas Results/Procedures: Labs Laboratory Tests 08/11/21 04:59: White Blood Count 8.1, Red Blood Count 2.59L, Hemoglobin 7.4L, Hematocrit 23L, Mean Corpuscular Volume 87, Mean Corpuscular Hemoglobin 29, Mean Corpuscular Hemoglobin Concent 33, Red Cell Distribution Width 17.4H, Platelet Count 260, Mean Platelet Volume 10.3, Immature Granulocyte % (Auto) 0, Neutrophils (%) (Au to) 67, Lymphocytes (%) (Auto) 17, Monocytes (%) (Auto) 10, Eosinophils (%) (Auto) 5, Basophils (%) (Auto) 1, Neutrophils # (Auto) 5.4, Lymphocytes # (Auto) 1.4, Monocytes # (Auto) 0.8, Eosinophils # (Auto) 0.4H, Basophils # (Auto) 0.1, Immature Granulocyte # (Auto) 0.0, Sodium Level 139, Potassium Level 3.5L, Chloride Level 104, Carbon Dioxide Level 25, Anion Gap 10, Blood Urea Nitrogen 10, Creatinine 0.70, Estimat Glomerular Filtration Rate 94, BUN/Creatinine Ratio 14, Glucose Level 89, Calcium Level 8.0L, Corrected Calcium 9.0, Total Bilirubin 0.4, Aspartate Amino Transf (AST/SGOT) 16, Alanine Aminotransferase (ALT/SGPT) 13, Alkaline Phosphatase 67, Total Protein 4.9L, Albumin 2.7L A/P: Assessment: GIB - management per surgical/medical services Sinus node dysfunction: A Fib with a slow vent response alternating with sinus rhythm with trifascicular block in June 2021 - HR improved following cessation of Amiodarone, Dig and Coreg Anemia - D/t GIB - management per medical/surgical services H/O Upper endoscopy by Dr Childs on 06/10/21: Hiatal Hernia; Duodenal Diverticula; Tortuous distal Esophagus; no active bleed reported Acute diastolic CHF - Echo of 06/08/21: LVEF 55-65%, dilated atria, mild to mod conc LVH, PASP 40-45 mmHg CAD - h/o CABG [address] Green at [facility] in [place], [place] PAF - OAC with warfarin until June 2021, on Eliquis currently - currently being held d/t GIB PAD - reports h/o bilat fem-pop (which he reports both have failed) - managed by Dr. Green at [facility] in [place], [place] HTN HLD - managed by PCP Abnormal ECG. - ECG of 06/07/21: A Fib with a relatively slow vent response, RBBB, LAFB Plan: GIB - management per medical/surgical services Eliquis currently being held d/t GIB. Ok to hold Eliquis until source of bl eeding is determined and treated. He has a known h/o PAF and being off OAC places him at increased risk of stroke. We have discussed this with him and he verbalizes understanding. Advise OAC be resume YASH to reduce risk of stroke - per Dr. Childs he advises OAC continued to be held for a week Currently in SR Monitor lab closely Anemia - s/p multiple transfusions - management per medical/surgical services Plan per medical/surgical services is to d/c home today Advise f/u in a week or sooner if needed JALEESA GARZON [facility] August 11, 2021 09:05
--- NOTE | 2021-08-11 09:32 | Progress Note - Cardiology ---
Cardiology SOAP Progress Note Subjective: No cp or palp or syncope or shortness of breath No n/v/d Wishes to go home Objective: I&O/Vital Signs 08/10/21 08/11/21 08/11/21 08/11/21 23:44 04:00 07:14 07:33 Temp 37.0 37.0 36.9 Pulse 89 85 85 Resp 20 20 20 B/P (MAP) 112/55 (74) 104/57 (73) 126/59 (81) Pulse Ox 95 92 93 91 O2 Delivery Nasal Cannula Nasal Cannula Room Air Nasal Cannula O2 Flow Rate 1.00 1.00 0.50 08/11/21 08:33 O2 Delivery Nasal Cannula O2 Flow Rate 1.00 08/10/21 23:59 Intake Total 1450 ml Output Total 1275 ml Balance 175 ml Constitutional: AAO x 3, well-developed, well-nourished Respiratory: No accessory muscle use, No respiratory distress; chest expansion is symmetric, chest is bilaterally symmetric, lungs clear to auscultation Cardiovascular: regular rate-rhythm; No JVD; S1 and S2 Gastrointestional: No tender; soft; No guarding; audible bowel sounds Extremities: no lower extremity edema bilateral Skin: No rash on exposed areas, No ulcerations on exposed areas Results/Procedures: Labs Laboratory Tests 08/11/21 04:59: White Blood Count 8.1, Red Blood Count 2.59L, Hemoglobin 7.4L, Hematocrit 23L, Mean Corpuscular Volume 87, Mean Corpuscular Hemoglobin 29, Mean Corpuscular Hemoglobin Concent 33, Red Cell Distribution Width 17.4H, Platelet Count 260, Mean Platelet Volume 10.3, Immature Granulocyte % (Auto) 0, Neutrophils (%) (Auto) 67, Lymphocytes (%) (Auto) 17, Monocytes (%) (Auto) 10, Eosinophils (%) (Auto) 5, Basophils (%) (Auto) 1, Neutrophils # (Auto) 5.4, Lymphocytes # (Auto) 1.4, Monocytes # (Auto) 0.8, Eosinophils # (Auto) 0.4H, Basophils # (Auto) 0.1, Immature Granulocyte # (Auto) 0.0, Sodium Level 139, Potassium Level 3.5L, Chloride Level 104, Carbon Dioxide Level 25, Anion Gap 10, Blood Urea Nitrogen 10, Creatinine 0.70, Estimat Glomerular Filtration Rate 94, BUN/Creatinine Ratio 14, Glucose Level 89, Calcium Level 8.0L, Corrected Calcium 9.0, Total Bilirubin 0.4, Aspartate Amino Transf (AST/SGOT) 16, Alanine Aminotransferase (ALT/SGPT) 13, Alkaline Phosphatase 67, Total Protein 4.9L, Albumin 2.7L A/P: Assessment: GIB after recent colonscopic polyp removal by Dr Childs (late July 2021) - management per Surgical/Medical services. Dr Childs has advised off Eliquis for a week Sinus node dysfunction: A Fib with a slow vent response alternating with sinus rhythm with trifascicular block in June 2021 - HR improved following cessation of Amiodarone, Dig and Coreg Anemia - D/t GIB - management per medical/surgical services H/O Upper endoscopy by Dr Childs on 06/10/21: Hiatal Hernia; Duodenal Diverticula; Tortuous distal Esophagus; no active bleed reported Acute diastolic CHF - Echo of 06/08/21: LVEF 55-65%, dilated atria, mild to mod conc LVH, PASP 40-45 mmHg CAD - h/o CABG [address] Green at [facility] in [place], [place] PAF - OAC with warfarin until June 2021, on Eliquis currently - currently being held d/t GIB PAD - reports h/o bilat fem-pop (which he reports both have failed) - managed by Dr. Green at [facility] in [place], [place] HTN HLD - managed by PCP Abnormal ECG. - ECG of 06/07/21: A Fib with a relatively slow vent response, RBBB, LAFB Plan: GIB - management per medical/surgical services Eliquis currently being held d/t GIB. Ok to hold Eliquis until source of bleeding is determined and treated. He has a known h/o PAF and being off OAC places him at increased risk of stroke. We have discussed this with him and he verbalizes understanding. Advise OAC be resume YASH to reduce risk of stroke - per Dr. Childs he advises OAC continued to be held for a week Currently in SR Monitor lab closely Anemia - s/p multiple transfusions - management per medical/surgical services Plan per Medical/Surgical services is to d/c home today Advise f/u in a week or sooner if needed CB CONTRERAS MD FACP FACC CCDS August 11, 2021 09:31
[2021-08-11] MEDS: PANTOPRAZOLE 40 MG (PROTONIX) TAB PO SCH (09:48)
[2021-08-11] MEDS: SENNOSIDES 8.6 MG (SENOKOT) TAB PO SCH (10:01)
[2021-08-11] MEDS: DOCUSATE SODIUM 100 MG (COLACE) CAP PO SCH (10:01)
[2021-08-11 10:56] VITALS: BP 126/59
== END 2021-08-11 10:58 | disposition home or self-care (01) | DRG 919 ==
LOC: EDUNIT# 07:19 → ER 07:20 → ICU 11:48 → 4TH 08-10 10:12
PROVIDERS: ADMIT Internal Medicine; ATTEND Internal Medicine
DX: K91.840 Postprocedural hemorrhage of a digestive system organ or structure following a digestive system procedure (principal); I50.31 Acute diastolic (congestive) heart failure; M48.54XA Collapsed vertebra, not elsewhere classified, thoracic region, initial encounter for fracture; I13.0 Hypertensive heart and chronic kidney disease with heart failure and stage 1 through stage 4 chronic kidney disease, or unspecified chronic kidney disease; Y83.8 Other surgical procedures as the cause of abnormal reaction of the patient, or of later complication, without mention of misadventure at the time of the procedure; I95.9 Hypotension, unspecified; E86.1 Hypovolemia; J44.9 Chronic obstructive pulmonary disease, unspecified; G47.33 Obstructive sleep apnea (adult) (pediatric); I25.10 Atherosclerotic heart disease of native coronary artery without angina pectoris; R05.9 Cough, unspecified; E03.9 Hypothyroidism, unspecified; N18.9 Chronic kidney disease, unspecified; K59.00 Constipation, unspecified; E78.00 Pure hypercholesterolemia, unspecified; M19.90 Unspecified osteoarthritis, unspecified site; I73.9 Peripheral vascular disease, unspecified; D64.9 Anemia, unspecified; H91.90 Unspecified hearing loss, unspecified ear; I49.5 Sick sinus syndrome; I48.0 Paroxysmal atrial fibrillation; Z87.891 Personal history of nicotine dependence; Z79.82 Long term (current) use of aspirin; Z79.899 Other long term (current) drug therapy; Z95.1 Presence of aortocoronary bypass graft; Z79.01 Long term (current) use of anticoagulants; Z99.81 Dependence on supplemental oxygen; Z95.5 Presence of coronary angioplasty implant and graft
CPT/HCPCS: 36415; 74177; 80053; 82607; 83540; 85014; 85018; 85025; 85610; 85730; 86850; 86870; 86900; 86901; 86920; 86922; 94640; 94760

== ENCOUNTER → 2021-08-16 | Outpatient (CLI) | payer MEDICARE, OTHER ==
[~2021-08-16] MED LIST changes: +ACET-11 PO; +CYAN500T8 PO; +DOCU100C37 PO; +FEXO180T84 PO; +MONT-40 PO; +SODI45SP9 NSEACH; +TRAM50TA3 PO
--- NOTE | 2021-08-16 14:08 | Diagnostic Imaging Report ---
INDICATION: Patient had a sneezing and coughing attack associated with pneumonia which resulted in persistent spinal pain. Previous radiographs showed indeterminate-acuity wedged deformities of some [id number] thoracic levels. FINDINGS: There is severe compression deformity and retropulsion of T5 greater than T6. T5 has about 80 to 90% stature loss at its peg-[id number] third with its posterior endplate retropulsed about 8 mm posteriorly which posteriorly displaces the thoracic cord at this level. It is not significantly compressed, however there is slight elevated T2 signal intensity within the cord which may reflect a mild degree of cord edema. No paraspinal or epidural hemorrhage. This level shows mild edema but is predominantly sclerotic. Edema does extend however into the bilateral pedicles and facets. At T6, vertebral stature loss is predominantly at its mid anterior third down about 50%. This level showed no significant retropulsion and showed a mild marrow edema, likely its subacute fracture. It had no substantial edema tracking posteriorly along its pedicle. There does however appear to be severe biforaminal stenoses at the T5-T6 level and moderate biforaminal stenoses at T4-T5 owing to the retropulsed T5 vertebral body fracture. No dislocation of the facets. No findings of ligamentous rupture. No epidural or intradural hemorrhage. There is slight marrow edema at the anteroinferior endplate of T4 without its stature loss. This may be degenerative or contusive. The remaining levels are without edema and no other acute or subacute fracture pattern found. No other substantial canal or foraminal stenoses. There is focal hyperkyphosis of the thoracic spine centered about the T5-T6 vertebral body fractures. IMPRESSION: 1. Likely subacute T5 and T6 vertebral body fractures near vertebra plana at T5 show significant retropulsion of the posterior cortex. This mildly displaces the cord posteriorly at that level without gretchen cord compression and equivocal findings for mild segmental cord edema. These levels are moderately edematous and favored to reflect subacute fractures. No ligamentous rupture or facet joint dislocation and no paraspinal hemorrhage. Marrow edema extends into the pedicles bilaterally at T5. Further anatomical characterization with CT of the thoracic spine suggested to assist in therapeutic planning. Biforaminal stenoses appeared substantial below greater than above of the T5 fracture. 2. Degenerative changes elsewhere with no other significant stenoses. No other acute or subacute-appearing fractures found. Dictated by: Dictated on workstation # [id number]
== END ==
LOC: RAD 12:30
PROVIDERS: ATTEND Physician Assistant
DX: M48.04 Spinal stenosis, thoracic region (principal); J18.9 Pneumonia, unspecified organism; S22.050A Wedge compression fracture of T5-T6 vertebra, initial encounter for closed fracture
CPT/HCPCS: 72146